=== PATIENT | male | born 1955 | race African-American/Black ===

== ENCOUNTER → 2016-09-11 | Outpatient (CLI) | payer MEDICARE, OTHER ==
[~2016-09-11] VITALS: Ht 190.5 cm; Wt 77.4 kg
[~2016-09-11] MED LIST: ACLI400A2 IH; ALPR0.5T8 PO; AMLO-512 PO; ARIP15TA3 PO; ASPI81 PO; ATOR20TA86 PO; BUPR-93 PO; CARI350 PO; CARV25 PO; CLOP75 PO; DIPH25 PO; DOCU250C91 PO; ELBA1TAB PO; ERYTOO OS; FLUT1AER PO; FOLI0.8T2 PO; FOLI0.8T22 PO; GABA-531 PO; HYDR-305 PO; LACT30L PO; LANS30 PO; LEVO250 PO; LINA72CA PO; LOPE2 PO; MEGE40 PO; METO-325 PO; OMEP20 PO; PHOSLOC PO; SILD25 PO; TIOT185 IH; TRAZ-144 PO; VALS40TA4 PO; VITAD1000 PO; ZOLP10 PO
[2016-09-11 09:25] VITALS: BP 141/77
== END | disposition home or self-care (01) ==
LOC: HBOWC 08:46
PROVIDERS: ATTEND Emergency Medicine
DX: E11.621 Type 2 diabetes mellitus with foot ulcer (principal); L97.521 Non-pressure chronic ulcer of other part of left foot limited to breakdown of skin; E11.22 Type 2 diabetes mellitus with diabetic chronic kidney disease; I12.0 Hypertensive chronic kidney disease with stage 5 chronic kidney disease or end stage renal disease; N18.6 End stage renal disease; K21.9 Gastro-esophageal reflux disease without esophagitis; N40.0 Benign prostatic hyperplasia without lower urinary tract symptoms; E11.69 Type 2 diabetes mellitus with other specified complication; M86.8X7 Other osteomyelitis, ankle and foot; E83.59 Other disorders of calcium metabolism; Z87.39 Personal history of other diseases of the musculoskeletal system and connective tissue
CPT/HCPCS: 73630; 97597; G0463

== ENCOUNTER → 2016-09-18 | Outpatient (CLI) | payer MEDICARE, OTHER ==
[~2016-09-18] MED LIST changes: -ACLI400A2 IH; -ALPR0.5T8 PO; -ARIP15TA3 PO; -BUPR-93 PO; -CARI350 PO; -ERYTOO OS; -FLUT1AER PO; -FOLI0.8T2 PO; -LANS30 PO; -LEVO250 PO; -LOPE2 PO; -MEGE40 PO; -METO-325 PO; -SILD25 PO; -VALS40TA4 PO; -VITAD1000 PO; -ZOLP10 PO
[2016-09-18 09:33] VITALS: BP 127/72
== END | disposition home or self-care (01) ==
LOC: HBOWC 08:59
PROVIDERS: ATTEND Emergency Medicine
DX: E11.621 Type 2 diabetes mellitus with foot ulcer (principal); L97.521 Non-pressure chronic ulcer of other part of left foot limited to breakdown of skin; E11.22 Type 2 diabetes mellitus with diabetic chronic kidney disease; E11.69 Type 2 diabetes mellitus with other specified complication; I12.0 Hypertensive chronic kidney disease with stage 5 chronic kidney disease or end stage renal disease; N18.6 End stage renal disease; K21.9 Gastro-esophageal reflux disease without esophagitis; M86.8X7 Other osteomyelitis, ankle and foot
CPT/HCPCS: 97597

== ENCOUNTER 2016-10-07 13:27 | Inpatient (IN) | payer MEDICARE, OTHER ==
[~2016-10-07] VITALS: Ht 190.5 cm; Wt 77.0 kg
[2016-10-07 13:42] LABS: GLUCOSE,POINT OF CARE 77 MG/DL (70-110)
[2016-10-07] MEDS ORDERED: SODIUM CHLORIDE 0.9% 500 ML IV ONE (15:15)
[2016-10-07 15:17] LABS: GLUCOSE,POINT OF CARE 79 MG/DL (70-110)
[2016-10-07 15:22] LABS: BASOPHILS % (AUTO) 0.7 % (0.0-2.0); EOSINOPHILS % (AUTO) 1.9 % (1.0-6.0); HEMATOCRIT 32.9 % (41-53); LYMPHOCYTES # (AUTO) 0.9 K/uL (1.0-4.8); LYMPHOCYTES % (AUTO) 23.7 % (22.0-44.0); MEAN CORPUSCULAR HEMOGLOBIN 28.4 pg (26.0-34.0); MEAN CORPUSCULAR HGB CONC 33.2 G/dL (31.0-37.0); MEAN CORPUSCULAR VOLUME 85 fL (80-100); MONOCYTES # (AUTO) 0.3 K/uL (0.1-1.0); NEUTROPHILS # (AUTO) 2.4 K/uL (1.8-7.7); NEUTROPHILS % (AUTO) 65.7 % (40.0-70.0); PLATELET COUNT (AUTO) 225 K/uL (150-450); RED BLOOD CELL COUNT(AUTO) 3.86 MIL/uL (4.50-5.90); RED CELL DISTRIBUTION WIDTH 16.2 % (11.5-14.5); WHITE BLOOD COUNT (AUTO) 3.6 K/uL (4.5-11.0)
[2016-10-07] MEDS ORDERED: LINA290C PO (15:22)
[2016-10-07 15:30] LABS: CALCIUM, TOTAL 9.4 mg/dL (8.8-10.5); CREATININE 8.98 mg/dL (0.60-1.30); POTASSIUM 4.3 mmol/L (3.5-5.1)
[2016-10-07] MEDS ORDERED: ONDANSETRON HCL 4 MG/2 ML VIAL IVP ONE (15:30)
[2016-10-07] MEDS ORDERED: MORPHINE SULFATE 4 MG/ML SYRINGE IVP ONE ×2 (15:30→17:30)
[2016-10-07 15:37] LABS: ALBUMIN 3.2 g/dL (3.4-5.0); BILIRUBIN,TOTAL 0.4 mg/dL (0.1-1.0); TOTAL PROTEIN, SERUM 8.7 g/dL (6.4-8.2)
[2016-10-07 16:28] LABS: GLUCOSE,POINT OF CARE 63 MG/DL (70-110)
[2016-10-07] MEDS ORDERED: DEXTROSE 50%-WATER 25 GM/50 ML SYRINGE IVP ONE (16:30)
[2016-10-07 17:02] LABS: GLUCOSE,POINT OF CARE 208 MG/DL (70-110)
[2016-10-07] MEDS ORDERED: BISACODYL 10 MG RECTAL RECTAL SUPPOSITORY PR PRN (18:30)
[2016-10-07] MEDS ORDERED: CefTRIAXone 1 GM/DEXTROSE 50 ML IV ONE (18:30)
[2016-10-07] MEDS ORDERED: ZOLPIDEM TARTRATE 5 MG TABLET PO PRN (18:30)
[2016-10-07] MEDS ORDERED: 0.9% SODIUM CHLORIDE 10 ML SYRINGE IVP PRN (18:30)
[2016-10-07] MEDS ORDERED: ALBUTEROL SULFATE 2.5 MG/0.5 ML NEB SOLUTION NEB PRN (18:30)
[2016-10-07] MEDS ORDERED: ONDANSETRON HCL 4 MG/2 ML VIAL IVP PRN ×2 (18:30)
[2016-10-07] MEDS ORDERED: MORPHINE SULFATE 2 MG/ML SYRINGE IVP PRN (18:30)
[2016-10-07] MEDS ORDERED: IPRATROPIUM BROMIDE 0.5 MG/2.5 ML NEB SOLUTION NEB PRN (18:30)
[2016-10-07 20:05] VITALS: BP 165/86
[2016-10-07] MEDS ORDERED: GABAPENTIN 300 MG CAPSULE PO SCH (21:00)
[2016-10-07] MEDS: HEPARIN SODIUM,PORCINE 5,000 UNITS/ML VIAL SQ SCH (21:12)
[2016-10-07] MEDS: DOCUSATE SODIUM 250 MG CAPSULE PO SCH (21:12)
[2016-10-07] MEDS: DiphenhydrAMINE HCL 25 MG CAPSULE PO SCH (21:13)
[2016-10-07] MEDS: MORPHINE SULFATE 2 MG/ML SYRINGE IVP PRN (21:13)
[2016-10-07 22:17] LABS: GLUCOSE,POINT OF CARE 54 MG/DL (70-110)
[2016-10-07 23:51] VITALS: BP 165/87
[2016-10-08] MEDS: MORPHINE SULFATE 2 MG/ML SYRINGE IVP PRN ×4 (01:25→13:31)
[2016-10-08 01:42] LABS: GLUCOSE,POINT OF CARE 78 MG/DL (70-110)
[2016-10-08 04:10] VITALS: BP 154/83
[2016-10-08 05:51] LABS: BASOPHILS % (AUTO) 0.4 % (0.0-2.0); EOSINOPHILS % (AUTO) 1.7 % (1.0-6.0); HEMATOCRIT 31.2 % (41-53); HEMOGLOBIN 10.3 g/dL (13.5-17.5); LYMPHOCYTES # (AUTO) 1.1 K/uL (1.0-4.8); MEAN CORPUSCULAR HEMOGLOBIN 28.4 pg (26.0-34.0); MEAN CORPUSCULAR VOLUME 86 fL (80-100); MONOCYTES # (AUTO) 0.4 K/uL (0.1-1.0); MONOCYTES % (AUTO) 7.7 % (2.0-9.0); NEUTROPHILS # (AUTO) 3.7 K/uL (1.8-7.7); NEUTROPHILS % (AUTO) 69.2 % (40.0-70.0); PLATELET COUNT (AUTO) 202 K/uL (150-450); RED BLOOD CELL COUNT(AUTO) 3.61 MIL/uL (4.50-5.90); RED CELL DISTRIBUTION WIDTH 15.9 % (11.5-14.5); WHITE BLOOD COUNT (AUTO) 5.3 K/uL (4.5-11.0)
[2016-10-08 06:21] LABS: HEMOGLOBIN A1C 4.3 % (4.5-6.2)
[2016-10-08 06:22] LABS: GLUCOSE,POINT OF CARE 81 MG/DL (70-110)
[2016-10-08 06:31] LABS: CALCIUM, TOTAL 8.7 mg/dL (8.8-10.5); CHOL/HDL RATIO 5.2 (4.2-7.3); CREATININE 10.18 mg/dL (0.60-1.30); MAGNESIUM 1.7 mg/dL (1.80-2.40); POTASSIUM 4.4 mmol/L (3.5-5.1); THYROID STIMULATING HORMONE 0.88 uIU/mL (0.36-3.74)
[2016-10-08 07:18] VITALS: BP 143/83
[2016-10-08] MEDS ORDERED: TraZODone HCL 50 MG TABLET PO SCH (09:00)
[2016-10-08 09:16] LABS: ALBUMIN 2.7 g/dL (3.4-5.0); BILIRUBIN,TOTAL 0.4 mg/dL (0.1-1.0); TOTAL PROTEIN, SERUM 7.5 g/dL (6.4-8.2)
[2016-10-08] MEDS: CLOPIDOGREL BISULFATE 75 MG TABLET PO SCH (09:34)
[2016-10-08] MEDS: OMEPRAZOLE 20 MG CAPSULE PO SCH (09:34)
[2016-10-08] MEDS: HEPARIN SODIUM,PORCINE 5,000 UNITS/ML VIAL SQ SCH ×2 (09:35→21:17)
[2016-10-08] MEDS: ASPIRIN 81 MG CHEWABLE TABLET PO SCH (09:35)
[2016-10-08] MEDS: DiphenhydrAMINE HCL 25 MG CAPSULE PO SCH ×3 (09:35→21:18)
[2016-10-08] MEDS: AmLODIPine BESYLATE 10 MG TABLET PO SCH (09:35)
[2016-10-08] MEDS: CALCIUM ACETATE 667 MG CAPSULE PO SCH ×3 (09:35→18:01)
[2016-10-08] MEDS: DOCUSATE SODIUM 250 MG CAPSULE PO SCH ×2 (09:35→21:17)
[2016-10-08] MEDS: OXYGEN THERAPY IH SCH ×2 (09:37→20:00)
[2016-10-08] MEDS: VITAMIN B COMP/VIT C/FOLIC ACID CAPSULE PO SCH (09:41)
[2016-10-08] MEDS: TIOTROPIUM BROMIDE 18 MCG/INH HANDIHALER [5] IH SCH (09:46)
[2016-10-08 11:41] VITALS: BP 173/85
[2016-10-08 12:43] LABS: GLUCOSE,POINT OF CARE 106 MG/DL (70-110)
[2016-10-08] MEDS ORDERED: MORPHINE SULFATE 2 MG/ML SYRINGE IVP ONE (14:00)
[2016-10-08 15:27] VITALS: BP 154/114
[2016-10-08] MEDS: NICOTINE 21 MG/24 HOUR PATCH TD SCH (16:02)
[2016-10-08] MEDS: MORPHINE SULFATE 4 MG/ML SYRINGE IVP PRN ×2 (18:02→22:10)
[2016-10-08 18:31] LABS: GLUCOSE,POINT OF CARE 71 MG/DL (70-110)
[2016-10-08 19:25] VITALS: BP 151/85
[2016-10-08] MEDS: MAGNESIUM HYDROXIDE SUSPENSION 30 ML UDCUP PO PRN (21:18)
[2016-10-08] MEDS: CARVEDILOL 12.5 MG TABLET PO SCH (21:18)
[2016-10-08] MEDS: ZOLPIDEM TARTRATE 5 MG TABLET PO PRN (21:18)
[2016-10-08 22:32] LABS: GLUCOSE,POINT OF CARE 79 MG/DL (70-110)
[2016-10-09] MEDS: MORPHINE SULFATE 4 MG/ML SYRINGE IVP PRN ×4 (02:01→20:29)
[2016-10-09 03:01] VITALS: BP 152/94
[2016-10-09 06:08] LABS: GLUCOSE,POINT OF CARE 82 MG/DL (70-110)
[2016-10-09 07:11] VITALS: BP 167/94
[2016-10-09] MEDS: OXYGEN THERAPY IH SCH (08:00)
[2016-10-09] MEDS ORDERED: SODIUM CHLORIDE 0.9% 1,000 ML IV ONE ×2 (08:00→08:01)
[2016-10-09] MEDS: CALCIUM ACETATE 667 MG CAPSULE PO SCH ×3 (08:00→18:33)
[2016-10-09] MEDS ORDERED: FentaNYL CITRATE-PF 100 MCG/2 ML VIAL ONE ×2 (08:24→08:52)
[2016-10-09] MEDS ORDERED: MIDAZOLAM HCL 5 MG/ML VIAL ONE ×2 (08:24→08:52)
[2016-10-09] MEDS ORDERED: FLUMAZENIL 0.1 MG/ML 5 ML VIAL IVP ONE (08:25)
[2016-10-09] MEDS ORDERED: SODIUM TETRADECYL SULFATE 3% 60 MG/2 ML VIAL IVP ONE (08:25)
[2016-10-09] MEDS ORDERED: ATROPINE SULFATE 0.1 MG/ML 10 ML SYRINGE IVP ONE (08:25)
[2016-10-09] MEDS ORDERED: NALOXONE HCL 0.4 MG/ML VIAL ONE (08:25)
[2016-10-09] MEDS ORDERED: EPINEPHrine 1:10,000 [1 MG/10 ML] SYRINGE ONE (08:25)
[2016-10-09] MEDS ORDERED: DiphenhydrAMINE HCL 50 MG/ML VIAL ONE (08:25)
[2016-10-09] MEDS ORDERED: DEXTROSE 50%-WATER 25 GM/50 ML SYRINGE IVP ONE (08:35)
[2016-10-09 08:37] LABS: GLUCOSE COMMENT 1 Doctor Notified; GLUCOSE,POINT OF CARE 63 MG/DL (70-110)
[2016-10-09] MEDS ORDERED: NALOXONE HCL 1 MG/ML 2 ML SYG IVP PRN (09:00)
[2016-10-09] MEDS ORDERED: FOLIC ACID 1 MG TABLET PO SCH (09:00)
[2016-10-09] MEDS: AmLODIPine BESYLATE 10 MG TABLET PO SCH (10:25)
[2016-10-09] MEDS: CLOPIDOGREL BISULFATE 75 MG TABLET PO SCH (10:25)
[2016-10-09] MEDS: OMEPRAZOLE 20 MG CAPSULE PO SCH (10:25)
[2016-10-09] MEDS: LINACLOTIDE 145 MCG CAPSULE PO SCH (10:25)
[2016-10-09] MEDS: CARVEDILOL 12.5 MG TABLET PO SCH ×2 (10:26→20:29)
[2016-10-09] MEDS: ASPIRIN 81 MG CHEWABLE TABLET PO SCH (10:26)
[2016-10-09] MEDS: DiphenhydrAMINE HCL 25 MG CAPSULE PO SCH ×2 (10:26→20:29)
[2016-10-09] MEDS: VITAMIN B COMP/VIT C/FOLIC ACID CAPSULE PO SCH (10:26)
[2016-10-09] MEDS: TIOTROPIUM BROMIDE 18 MCG/INH HANDIHALER [5] IH SCH (10:27)
[2016-10-09] MEDS: NICOTINE 21 MG/24 HOUR PATCH TD SCH (10:29)
[2016-10-09] MEDS: HEPARIN SODIUM,PORCINE 5,000 UNITS/ML VIAL SQ SCH ×2 (10:30→20:29)
[2016-10-09 10:33] LABS: BASOPHILS % (AUTO) 0.4 % (0.0-2.0); EOSINOPHILS % (AUTO) 2.3 % (1.0-6.0); HEMATOCRIT 33.7 % (41-53); HEMOGLOBIN 11.1 g/dL (13.5-17.5); LYMPHOCYTES % (AUTO) 16.8 % (22.0-44.0); MEAN CORPUSCULAR HEMOGLOBIN 28.6 pg (26.0-34.0); MEAN CORPUSCULAR VOLUME 86 fL (80-100); MONOCYTES # (AUTO) 0.3 K/uL (0.1-1.0); MONOCYTES % (AUTO) 5.6 % (2.0-9.0); NEUTROPHILS # (AUTO) 4.3 K/uL (1.8-7.7); NEUTROPHILS % (AUTO) 74.9 % (40.0-70.0); PLATELET COUNT (AUTO) 203 K/uL (150-450); RED BLOOD CELL COUNT(AUTO) 3.89 MIL/uL (4.50-5.90); RED CELL DISTRIBUTION WIDTH 16.4 % (11.5-14.5); WHITE BLOOD COUNT (AUTO) 5.8 K/uL (4.5-11.0)
[2016-10-09] MEDS: DOCUSATE SODIUM 250 MG CAPSULE PO SCH ×2 (10:41→21:00)
[2016-10-09 10:47] LABS: CALCIUM, TOTAL 8.7 mg/dL (8.8-10.5); CREATININE 12.52 mg/dL (0.60-1.30); POTASSIUM 4.4 mmol/L (3.5-5.1)
[2016-10-09] MEDS ORDERED: DiphenhydrAMINE HCL 50 MG/ML VIAL IVP ONE (11:00)
[2016-10-09] MEDS ORDERED: LIDOCAINE HCL/PF 1% 2 ML VIAL IM ONE (11:00)
[2016-10-09 11:32] VITALS: BP 164/90
[2016-10-09 12:42] LABS: GLUCOSE,POINT OF CARE 81 MG/DL (70-110)
[2016-10-09] MEDS: SIMETHICONE 80 MG CHEWABLE TABLET CHEW PRN (14:07)
[2016-10-09] MEDS ORDERED: MANNITOL 25%-12.5 GM/50 ML VIAL IVP PRN (16:45)
[2016-10-09] MEDS ORDERED: DiphenhydrAMINE HCL 50 MG/ML VIAL IVP PRN (16:45)
[2016-10-09] MEDS ORDERED: LIDOCAINE HCL/PF 1% 2 ML VIAL ID PRN (16:45)
[2016-10-09] MEDS ORDERED: ALBUMIN HUMAN 25%-12.5GM/50ML IV BOTTLE IV PRN (16:45)
[2016-10-09 18:52] LABS: GLUCOSE COMMENT 1 Juice/Food/D50 Given; GLUCOSE,POINT OF CARE 51 MG/DL (70-110)
[2016-10-09 19:35] VITALS: BP 155/80
[2016-10-09] MEDS: BUDESONIDE/FORMOTEROL FUMARATE 80-4.5 MCG/PUFF 6.9 GM INHALER IH SCH (20:31)
[2016-10-09 23:06] VITALS: BP 154/88
[2016-10-09] MEDS: ZOLPIDEM TARTRATE 5 MG TABLET PO PRN (23:10)
[2016-10-10] MEDS: MORPHINE SULFATE 4 MG/ML SYRINGE IVP PRN ×6 (01:11→20:50)
[2016-10-10] MEDS: SIMETHICONE 80 MG CHEWABLE TABLET CHEW PRN ×2 (01:17→09:04)
[2016-10-10 03:32] LABS: GLUCOSE,POINT OF CARE 88 MG/DL (70-110)
[2016-10-10 05:38] VITALS: BP 155/83
[2016-10-10 05:56] LABS: BASOPHILS % (AUTO) 0.7 % (0.0-2.0); EOSINOPHILS % (AUTO) 3.1 % (1.0-6.0); HEMATOCRIT 30.9 % (41-53); MEAN CORPUSCULAR HGB CONC 32.5 G/dL (31.0-37.0); MEAN CORPUSCULAR VOLUME 86 fL (80-100); MONOCYTES # (AUTO) 0.4 K/uL (0.1-1.0); MONOCYTES % (AUTO) 10.2 % (2.0-9.0); NEUTROPHILS # (AUTO) 2.5 K/uL (1.8-7.7); PLATELET COUNT (AUTO) 163 K/uL (150-450); RED BLOOD CELL COUNT(AUTO) 3.59 MIL/uL (4.50-5.90); RED CELL DISTRIBUTION WIDTH 16.4 % (11.5-14.5); WHITE BLOOD COUNT (AUTO) 4.1 K/uL (4.5-11.0)
[2016-10-10 06:25] LABS: CALCIUM, TOTAL 8.8 mg/dL (8.8-10.5); CREATININE 8.85 mg/dL (0.60-1.30); POTASSIUM 4.5 mmol/L (3.5-5.1)
[2016-10-10 06:33] LABS: GLUCOSE,POINT OF CARE 96 MG/DL (70-110)
[2016-10-10 07:28] VITALS: BP 167/84
[2016-10-10] MEDS: OMEPRAZOLE 20 MG CAPSULE PO SCH (07:58)
[2016-10-10] MEDS: CALCIUM ACETATE 667 MG CAPSULE PO SCH ×3 (07:59→17:24)
[2016-10-10] MEDS: AmLODIPine BESYLATE 10 MG TABLET PO SCH (08:00)
[2016-10-10] MEDS: DOCUSATE SODIUM 250 MG CAPSULE PO SCH ×2 (08:00→20:50)
[2016-10-10] MEDS: OXYGEN THERAPY IH SCH ×4 (08:00→22:17)
[2016-10-10] MEDS: VITAMIN B COMP/VIT C/FOLIC ACID CAPSULE PO SCH (08:00)
[2016-10-10] MEDS: CLOPIDOGREL BISULFATE 75 MG TABLET PO SCH (08:01)
[2016-10-10] MEDS: HEPARIN SODIUM,PORCINE 5,000 UNITS/ML VIAL SQ SCH ×2 (08:02→21:00)
[2016-10-10] MEDS: CARVEDILOL 12.5 MG TABLET PO SCH (08:03)
[2016-10-10] MEDS: ASPIRIN 81 MG CHEWABLE TABLET PO SCH (08:03)
[2016-10-10] MEDS: TIOTROPIUM BROMIDE 18 MCG/INH HANDIHALER [5] IH SCH (08:04)
[2016-10-10] MEDS: LINACLOTIDE 145 MCG CAPSULE PO SCH (08:04)
[2016-10-10] MEDS: DiphenhydrAMINE HCL 25 MG CAPSULE PO SCH ×3 (08:05→20:50)
[2016-10-10] MEDS: BUDESONIDE/FORMOTEROL FUMARATE 80-4.5 MCG/PUFF 6.9 GM INHALER IH SCH ×2 (08:06→20:49)
[2016-10-10] MEDS: NICOTINE 21 MG/24 HOUR PATCH TD SCH (08:08)
[2016-10-10 11:28] LABS: GLUCOSE,POINT OF CARE 77 MG/DL (70-110)
[2016-10-10 11:35] VITALS: BP 152/83
[2016-10-10 15:20] VITALS: BP 125/62
[2016-10-10 17:38] LABS: GLUCOSE COMMENT 1 Juice/Food/D50 Given; GLUCOSE,POINT OF CARE 64 MG/DL (70-110)
[2016-10-10 17:42] LABS: GLUCOSE COMMENT 1 Repeated; GLUCOSE COMMENT 2 Juice/Food/D50 Given; GLUCOSE,POINT OF CARE 56 MG/DL (70-110)
[2016-10-10 18:32] LABS: GLUCOSE,POINT OF CARE 72 MG/DL (70-110)
[2016-10-10 19:23] VITALS: BP 162/89
[2016-10-10] MEDS: MAGNESIUM HYDROXIDE SUSPENSION 30 ML UDCUP PO PRN (20:49)
[2016-10-10] MEDS: CARVEDILOL 25 MG TABLET PO SCH (20:50)
[2016-10-10] MEDS: ZOLPIDEM TARTRATE 5 MG TABLET PO PRN (22:15)
[2016-10-10 23:48] VITALS: BP 161/94
[2016-10-11] MEDS: CARISOPRODOL 350 MG TABLET PO PRN ×3 (00:02→16:53)
[2016-10-11] MEDS: MORPHINE SULFATE 4 MG/ML SYRINGE IVP PRN ×4 (00:51→13:39)
[2016-10-11 03:10] LABS: GLUCOSE,POINT OF CARE 82 MG/DL (70-110)
[2016-10-11] MEDS: SIMETHICONE 80 MG CHEWABLE TABLET CHEW PRN (04:52)
[2016-10-11 05:00] VITALS: BP 153/86
[2016-10-11] MEDS: LINACLOTIDE 145 MCG CAPSULE PO SCH (06:22)
[2016-10-11 08:10] VITALS: BP 168/87
[2016-10-11] MEDS: DiphenhydrAMINE HCL 25 MG CAPSULE PO SCH (08:10)
[2016-10-11] MEDS: ASPIRIN 81 MG CHEWABLE TABLET PO SCH (08:11)
[2016-10-11] MEDS: CLOPIDOGREL BISULFATE 75 MG TABLET PO SCH (08:11)
[2016-10-11] MEDS: VITAMIN B COMP/VIT C/FOLIC ACID CAPSULE PO SCH (08:11)
[2016-10-11] MEDS: CARVEDILOL 25 MG TABLET PO SCH (08:11)
[2016-10-11] MEDS: AmLODIPine BESYLATE 10 MG TABLET PO SCH (08:11)
[2016-10-11] MEDS: CALCIUM ACETATE 667 MG CAPSULE PO SCH ×2 (08:11→12:00)
[2016-10-11] MEDS: DOCUSATE SODIUM 250 MG CAPSULE PO SCH (08:11)
[2016-10-11] MEDS: OMEPRAZOLE 20 MG CAPSULE PO SCH (08:11)
[2016-10-11] MEDS: HEPARIN SODIUM,PORCINE 5,000 UNITS/ML VIAL SQ SCH (08:11)
[2016-10-11] MEDS: BUDESONIDE/FORMOTEROL FUMARATE 80-4.5 MCG/PUFF 6.9 GM INHALER IH SCH (08:12)
[2016-10-11] MEDS: TIOTROPIUM BROMIDE 18 MCG/INH HANDIHALER [5] IH SCH (08:12)
[2016-10-11] MEDS: NICOTINE 21 MG/24 HOUR PATCH TD SCH (08:12)
[2016-10-11] MEDS: ALPRAZolam 0.5 MG TABLET PO PRN ×2 (09:00→16:53)
[2016-10-11 09:33] LABS: GLUCOSE,POINT OF CARE 71 MG/DL (70-110)
[2016-10-11 15:24] VITALS: BP 147/98
[2016-10-11] MEDS ORDERED: SYMB8060 IH (16:44)
[2016-10-11] MEDS ORDERED: CARV12 PO (16:45)
[2016-10-11] MEDS ORDERED: LIDOCAINE HCL/PF 1% 2 ML VIAL IARTIC ONE (17:29)
[2016-10-11] MEDS ORDERED: DiphenhydrAMINE HCL 50 MG/ML VIAL IM ONE (17:29)
== END 2016-10-11 17:30 | disposition home or self-care (01) | DRG 438 ==
LOC: EMS 13:29 → 6N 18:50
PROVIDERS: ADMIT Internal Medicine Geriatric Medicine; ATTEND Internal Medicine Geriatric Medicine
PROC: 5A1D60Z (ICD-10-PCS; 2016-10-09)
PROC: 0DB68ZX Excision of Stomach, Via Natural or Artificial Opening Endoscopic, Diagnostic (ICD-10-PCS; principal; 2016-10-09 09:00)
DX: K85.90 Acute pancreatitis without necrosis or infection, unspecified (principal); N18.6 End stage renal disease; I13.2 Hypertensive heart and chronic kidney disease with heart failure and with stage 5 chronic kidney disease, or end stage renal disease; J96.11 Chronic respiratory failure with hypoxia; E11.22 Type 2 diabetes mellitus with diabetic chronic kidney disease; E11.43 Type 2 diabetes mellitus with diabetic autonomic (poly)neuropathy; K74.60 Unspecified cirrhosis of liver; N18.9 Chronic kidney disease, unspecified; E78.5 Hyperlipidemia, unspecified; F17.200 Nicotine dependence, unspecified, uncomplicated; G89.4 Chronic pain syndrome; I50.9 Heart failure, unspecified; J44.9 Chronic obstructive pulmonary disease, unspecified; K29.70 Gastritis, unspecified, without bleeding; K31.84 Gastroparesis; K58.9 Irritable bowel syndrome, unspecified; Z91.19 Patient's noncompliance with other medical treatment and regimen; Z99.2 Dependence on renal dialysis; Z99.3 Dependence on wheelchair; Z99.81 Dependence on supplemental oxygen; D64.9 Anemia, unspecified; E21.3 Hyperparathyroidism, unspecified; B19.20 Unspecified viral hepatitis C without hepatic coma; Z88.8 Allergy status to other drugs, medicaments and biological substances; Z91.011 Allergy to milk products; Z91.013 Allergy to seafood; Z90.49 Acquired absence of other specified parts of digestive tract; Z91.012 Allergy to eggs; Z79.82 Long term (current) use of aspirin; Z79.899 Other long term (current) drug therapy; E11.51 Type 2 diabetes mellitus with diabetic peripheral angiopathy without gangrene
CPT/HCPCS: 74176; 76700; 82105; 82306; 82607; 82746; 82962; 83036; 83735; 84443; 87340; 88305; 88312; 93005; 96361; 96365; 96375; 96376; 99285; J0171; J0461; J0696; J1200; J1644; J2250; J2270; J2310; J2405; J3010; J3490; J7030

== ENCOUNTER → 2016-11-04 | Outpatient (CLI) | payer MEDICARE, OTHER ==
[~2016-11-04] MED LIST changes: +ACET650S14 PR; +ALPR0.5T8 PO; -ATOR20TA86 PO; +AUD NEB; +BISA5TAB12 PO; +CARV12 PO; -CARV25 PO; -ELBA1TAB PO; -GABA-531 PO; -HYDR-305 PO; +HYDR-309 PO; +IPRNEB IH; -LACT30L PO; +LIDOCAINE HCL 2% 5 ML JELLY TP ONE; +LINA290C PO; -LINA72CA PO; +MOM30 PO; +NICO-650 MISC; +SYMB8060 IH; +ZOLP5 PO; +ZOSY225FZ IV
[2016-11-04 10:27] VITALS: BP 124/59
== END | disposition home or self-care (01) ==
LOC: HBOWC 09:12
PROVIDERS: ATTEND Emergency Medicine
DX: E11.621 Type 2 diabetes mellitus with foot ulcer (principal); L97.522 Non-pressure chronic ulcer of other part of left foot with fat layer exposed; E11.51 Type 2 diabetes mellitus with diabetic peripheral angiopathy without gangrene; J44.9 Chronic obstructive pulmonary disease, unspecified; E11.22 Type 2 diabetes mellitus with diabetic chronic kidney disease; I13.2 Hypertensive heart and chronic kidney disease with heart failure and with stage 5 chronic kidney disease, or end stage renal disease; I50.9 Heart failure, unspecified; N18.6 End stage renal disease; Z99.2 Dependence on renal dialysis; E78.5 Hyperlipidemia, unspecified; E21.3 Hyperparathyroidism, unspecified; E11.42 Type 2 diabetes mellitus with diabetic polyneuropathy; E11.69 Type 2 diabetes mellitus with other specified complication; M86.8X8 Other osteomyelitis, other site
CPT/HCPCS: 11042; 84134; 85651; 86140; 87070; 87205

== ENCOUNTER → 2016-11-11 | Outpatient (CLI) | payer MEDICARE, OTHER ==
[~2016-11-11] MED LIST changes: -ACET650S14 PR; -ALPR0.5T8 PO; -AUD NEB; -BISA5TAB12 PO; -HYDR-309 PO; -IPRNEB IH; -LIDOCAINE HCL 2% 5 ML JELLY TP ONE; -MOM30 PO; -NICO-650 MISC; -TRAZ-144 PO; -ZOLP5 PO; -ZOSY225FZ IV
[2016-11-11 08:16] VITALS: BP 133/90
== END | disposition home or self-care (01) ==
LOC: HBOWC 07:17
PROVIDERS: ATTEND Emergency Medicine
DX: E11.621 Type 2 diabetes mellitus with foot ulcer (principal); L97.521 Non-pressure chronic ulcer of other part of left foot limited to breakdown of skin; E11.51 Type 2 diabetes mellitus with diabetic peripheral angiopathy without gangrene; E11.43 Type 2 diabetes mellitus with diabetic autonomic (poly)neuropathy; E11.22 Type 2 diabetes mellitus with diabetic chronic kidney disease; I13.2 Hypertensive heart and chronic kidney disease with heart failure and with stage 5 chronic kidney disease, or end stage renal disease; I50.9 Heart failure, unspecified; N18.6 End stage renal disease; J44.9 Chronic obstructive pulmonary disease, unspecified; E78.5 Hyperlipidemia, unspecified; E21.3 Hyperparathyroidism, unspecified; B19.20 Unspecified viral hepatitis C without hepatic coma; E11.69 Type 2 diabetes mellitus with other specified complication; M86.8X8 Other osteomyelitis, other site; K21.9 Gastro-esophageal reflux disease without esophagitis; Z99.2 Dependence on renal dialysis
CPT/HCPCS: 11042

== ENCOUNTER → 2016-11-11 | Outpatient (CLI) | payer MEDICARE, OTHER | END | disposition home or self-care (01) | LOC: RADMN 09:44 | PROVIDERS: ATTEND Nurse Practitioner Adult Health | DX: E11.621 Type 2 diabetes mellitus with foot ulcer (principal); L97.529 Non-pressure chronic ulcer of other part of left foot with unspecified severity; R60.0 Localized edema | CPT/HCPCS: 73721 ==

== ENCOUNTER → 2016-11-18 | Outpatient (CLI) | payer MEDICARE, OTHER ==
[~2016-11-18] MED LIST changes: +ACET650S14 PR; +ALPR0.5T8 PO; +AUD NEB; +BISA5TAB12 PO; +HYDR-309 PO; +IPRNEB IH; +LIDOCAINE HCL 2% 5 ML JELLY TP ONE; +MOM30 PO; +NICO-650 MISC; +TRAZ-144 PO; +ZOLP5 PO; +ZOSY225FZ IV
[2016-11-18 08:44] VITALS: BP 133/74
== END | disposition home or self-care (01) ==
LOC: HBOWC 07:45
PROVIDERS: ATTEND Emergency Medicine
DX: E11.621 Type 2 diabetes mellitus with foot ulcer (principal); L97.521 Non-pressure chronic ulcer of other part of left foot limited to breakdown of skin; E11.51 Type 2 diabetes mellitus with diabetic peripheral angiopathy without gangrene; J44.9 Chronic obstructive pulmonary disease, unspecified; K21.9 Gastro-esophageal reflux disease without esophagitis; E11.22 Type 2 diabetes mellitus with diabetic chronic kidney disease; I13.2 Hypertensive heart and chronic kidney disease with heart failure and with stage 5 chronic kidney disease, or end stage renal disease; N18.6 End stage renal disease; I50.9 Heart failure, unspecified; E78.5 Hyperlipidemia, unspecified; E21.3 Hyperparathyroidism, unspecified; E11.43 Type 2 diabetes mellitus with diabetic autonomic (poly)neuropathy; K74.60 Unspecified cirrhosis of liver; Z90.49 Acquired absence of other specified parts of digestive tract; Z86.19 Personal history of other infectious and parasitic diseases; Z79.82 Long term (current) use of aspirin; Z99.2 Dependence on renal dialysis
CPT/HCPCS: 11042

== ENCOUNTER → 2016-11-27 | Outpatient (CLI) | payer MEDICARE, OTHER ==
[~2016-11-27] MED LIST changes: -LIDOCAINE HCL 2% 5 ML JELLY TP ONE
[2016-11-27 15:04] VITALS: BP 99/61
== END | disposition home or self-care (01) ==
LOC: SRCNTR 14:39
PROVIDERS: ATTEND Internal Medicine Infectious Disease
DX: E11.69 Type 2 diabetes mellitus with other specified complication (principal); B96.89 Other specified bacterial agents as the cause of diseases classified elsewhere; M86.8X7 Other osteomyelitis, ankle and foot; E11.22 Type 2 diabetes mellitus with diabetic chronic kidney disease; I12.0 Hypertensive chronic kidney disease with stage 5 chronic kidney disease or end stage renal disease; N18.6 End stage renal disease; I73.9 Peripheral vascular disease, unspecified; B19.20 Unspecified viral hepatitis C without hepatic coma; J44.9 Chronic obstructive pulmonary disease, unspecified; G89.29 Other chronic pain; Z87.891 Personal history of nicotine dependence
CPT/HCPCS: G0463

== ENCOUNTER 2016-12-22 16:52 | Inpatient (IN) | payer MEDICARE, OTHER ==
[~2016-12-22] VITALS: Ht 182.9 cm; Wt 77.5 kg
[~2016-12-22 16:52] MED LIST changes: -ACET650S14 PR; -ALPR0.5T8 PO; -AUD NEB; -BISA5TAB12 PO; -HYDR-309 PO; -IPRNEB IH; -MOM30 PO; -NICO-650 MISC; -TRAZ-144 PO; -ZOLP5 PO; -ZOSY225FZ IV
[2016-12-24 16:15] VITALS: BP 150/66
[2016-12-24] MEDS ORDERED: ONDANSETRON HCL 4 MG/2 ML VIAL IVP PRN (17:15)
[2016-12-24] MEDS ORDERED: IPRATROPIUM BROMIDE 0.5 MG/2.5 ML NEB SOLUTION NEB PRN (17:15)
[2016-12-24] MEDS ORDERED: BISACODYL 10 MG RECTAL RECTAL SUPPOSITORY PR PRN (17:15)
[2016-12-24] MEDS ORDERED: MAGNESIUM HYDROXIDE SUSPENSION 30 ML UDCUP PO PRN (17:15)
[2016-12-24] MEDS ORDERED: ALBUTEROL SULFATE 2.5 MG/0.5 ML NEB SOLUTION NEB PRN (17:15)
[2016-12-24] MEDS ORDERED: ACETAMINOPHEN 325 MG TABLET PO PRN (17:30)
[2016-12-24] MEDS ORDERED: MORPHINE SULFATE 2 MG/ML SYRINGE IVP PRN ×3 (17:30→20:45)
[2016-12-24] MEDS ORDERED: PNEUMOCOCCAL VACCINE POLYVALENT 0.5 ML VIAL [PPSV23] IM ONE (18:15)
[2016-12-24] MEDS ORDERED: HYDROCODONE/ACETAMINOPHEN 5-325 MG TABLET PO PRN ×2 (18:30)
[2016-12-24] MEDS: CALCIUM ACETATE 667 MG CAPSULE PO SCH (18:34)
[2016-12-24] MEDS ORDERED: HYDROCODONE/ACETAMINOPHEN 10-325 MG TABLET PO PRN ×2 (19:00)
[2016-12-24] MEDS: CARVEDILOL 12.5 MG TABLET PO SCH (19:58)
[2016-12-24] MEDS: BUDESONIDE/FORMOTEROL FUMARATE 80-4.5 MCG/PUFF 6.9 GM INHALER IH SCH (19:58)
[2016-12-24] MEDS: DOCUSATE SODIUM 250 MG CAPSULE PO SCH (19:58)
[2016-12-24] MEDS: HEPARIN SODIUM,PORCINE 5,000 UNITS/ML VIAL SQ SCH (19:59)
[2016-12-24] MEDS: DiphenhydrAMINE HCL 25 MG CAPSULE PO SCH (19:59)
[2016-12-24 20:05] VITALS: BP 145/83
[2016-12-24] MEDS: ZOLPIDEM TARTRATE 10 MG TABLET PO PRN (20:55)
[2016-12-24] MEDS: ALPRAZolam 0.5 MG TABLET PO PRN (20:55)
[2016-12-24 23:47] VITALS: BP 134/77
[2016-12-25] MEDS: MORPHINE SULFATE 2 MG/ML SYRINGE IVP PRN ×6 (00:16→23:37)
[2016-12-25 05:55] VITALS: BP 158/87
[2016-12-25 06:14] LABS: BASOPHILS % (AUTO) 0.7 % (0.0-2.0); EOSINOPHILS % (AUTO) 3.2 % (1.0-6.0); HEMATOCRIT 31.1 % (41-53); HEMOGLOBIN 10.6 g/dL (13.5-17.5); LYMPHOCYTES # (AUTO) 1.1 K/uL (1.0-4.8); MEAN CORPUSCULAR HEMOGLOBIN 30.7 pg (26.0-34.0); MEAN CORPUSCULAR HGB CONC 34.1 G/dL (31.0-37.0); MEAN CORPUSCULAR VOLUME 90 fL (80-100); MONOCYTES # (AUTO) 0.3 K/uL (0.1-1.0); MONOCYTES % (AUTO) 9.9 % (2.0-9.0); NEUTROPHILS # (AUTO) 1.8 K/uL (1.8-7.7); NEUTROPHILS % (AUTO) 54.2 % (40.0-70.0); PLATELET COUNT (AUTO) 116 K/uL (150-450); RED BLOOD CELL COUNT(AUTO) 3.46 MIL/uL (4.50-5.90); RED CELL DISTRIBUTION WIDTH 16.6 % (11.5-14.5); WHITE BLOOD COUNT (AUTO) 3.3 K/uL (4.5-11.0)
[2016-12-25] MEDS: LINACLOTIDE 290 MCG CAPSULE PO SCH ×2 (06:27→09:45)
[2016-12-25 06:28] LABS: GLUCOSE,POINT OF CARE 105 MG/DL (70-110)
[2016-12-25] MEDS ORDERED: LIDOCAINE HCL/PF 1% 30 ML VIAL ONE (06:57)
[2016-12-25] MEDS ORDERED: BUPIVACAINE HCL/PF 0.5% 30 ML VIAL ONE (06:57)
[2016-12-25 07:23] LABS: ALBUMIN 2.8 g/dL (3.4-5.0); BILIRUBIN,TOTAL 0.3 mg/dL (0.1-1.0); CALCIUM, TOTAL 8.9 mg/dL (8.8-10.5); CREATININE 8.4 mg/dL (0.60-1.30); POTASSIUM 3.9 mmol/L (3.5-5.1); TOTAL PROTEIN, SERUM 7.4 g/dL (6.4-8.2)
[2016-12-25] MEDS ORDERED: SODIUM CHLORIDE 0.9% 1,000 ML IV ONE (07:34)
[2016-12-25] MEDS ORDERED: SODIUM CHLORIDE 0.9% 1,000 ML IV SCH (07:45)
[2016-12-25 08:02] LABS: PROCALCITONIN (PCT) 0.76 ng/mL (<0.50)
[2016-12-25] MEDS ORDERED: SODIUM CHLORIDE 0.9% 10 ML ONE (08:07)
[2016-12-25] MEDS ORDERED: BACITRACIN 50,000 UNITS/VIAL ONE (08:07)
[2016-12-25] MEDS ORDERED: THROMBIN, BOVINE 20000 UNITS/VIAL POWDER TP ONE (08:08)
[2016-12-25] MEDS ORDERED: GELATIN SPONGE,ABSORBABLE 100 MM TP ONE (08:08)
[2016-12-25 08:11] LABS: ERYTHROCYTE SEDIMENTATION RATE 57 MM/HR (0-15)
[2016-12-25] MEDS ORDERED: FentaNYL CITRATE-PF 100 MCG/2 ML VIAL IVP PRN (08:30)
[2016-12-25] MEDS ORDERED: MEPERIDINE-PF 25 MG/ML SYRINGE IVP PRN (08:30)
[2016-12-25] MEDS ORDERED: HYDROmorphone 2 MG/ML SYRINGE IVP PRN (08:30)
[2016-12-25 09:35] VITALS: BP 164/72
[2016-12-25] MEDS: CALCIUM ACETATE 667 MG CAPSULE PO SCH ×3 (09:45→16:59)
[2016-12-25] MEDS: VITAMIN B COMP/VIT C/FOLIC ACID CAPSULE PO SCH (09:45)
[2016-12-25] MEDS: TIOTROPIUM BROMIDE 18 MCG/INH HANDIHALER [5] IH SCH (09:45)
[2016-12-25] MEDS: DiphenhydrAMINE HCL 25 MG CAPSULE PO SCH ×2 (09:45→20:05)
[2016-12-25] MEDS: CARVEDILOL 12.5 MG TABLET PO SCH ×2 (09:45→20:06)
[2016-12-25] MEDS: DOCUSATE SODIUM 250 MG CAPSULE PO SCH ×2 (09:45→20:06)
[2016-12-25] MEDS: AmLODIPine BESYLATE 10 MG TABLET PO SCH (09:45)
[2016-12-25] MEDS: HEPARIN SODIUM,PORCINE 5,000 UNITS/ML VIAL SQ SCH ×2 (09:46→20:06)
[2016-12-25] MEDS: BUDESONIDE/FORMOTEROL FUMARATE 80-4.5 MCG/PUFF 6.9 GM INHALER IH SCH ×2 (09:53→20:07)
[2016-12-25 11:33] VITALS: BP 156/77
[2016-12-25] MEDS ORDERED: GLYCOPYRROLATE 0.2 MG/ML VIAL IM ONE (12:00)
[2016-12-25] MEDS ORDERED: KETAMINE HCL 50 MG/ML 10 ML VIAL IVP ONE (12:00)
[2016-12-25] MEDS ORDERED: MIDAZOLAM HCL 2 MG/2 ML VIAL IVP ONE (12:00)
[2016-12-25] MEDS ORDERED: METOCLOPRAMIDE HCL 5 MG/ML 2 ML VIAL IVP ONE (12:00)
[2016-12-25] MEDS ORDERED: PROPOFOL 1% 20 ML VIAL IVP ONE (12:00)
[2016-12-25] MEDS ORDERED: LIDOCAINE HCL/PF 2% 5 ML VIAL INJ ONE (12:00)
[2016-12-25] MEDS ORDERED: DiphenhydrAMINE HCL 50 MG/ML VIAL IVP ONE (12:00)
[2016-12-25] MEDS ORDERED: ONDANSETRON HCL 4 MG/2 ML VIAL IVP ONE (12:00)
[2016-12-25] MEDS: OXYGEN THERAPY IH SCH ×2 (13:59→19:16)
[2016-12-25 15:58] VITALS: BP 166/88
[2016-12-25] MEDS: NICOTINE 21 MG/24 HOUR PATCH TD SCH (16:59)
[2016-12-25] MEDS: ALBUTEROL SULFATE 2.5 MG/0.5 ML NEB SOLUTION NEB SCH ×2 (19:16→23:09)
[2016-12-25] MEDS: IPRATROPIUM BROMIDE 0.5 MG/2.5 ML NEB SOLUTION NEB SCH ×2 (19:16→23:09)
[2016-12-25 19:44] VITALS: BP 152/85
[2016-12-25] MEDS: ZOLPIDEM TARTRATE 10 MG TABLET PO PRN (20:06)
[2016-12-25] MEDS: ALPRAZolam 0.5 MG TABLET PO PRN (20:09)
[2016-12-25] MEDS ORDERED: LEVOFLOXACIN 250 MG TABLET PO ONE (21:30)
[2016-12-25 23:11] VITALS: BP 150/86
[2016-12-26] MEDS: ALBUTEROL SULFATE 2.5 MG/0.5 ML NEB SOLUTION NEB SCH ×6 (03:07→23:00)
[2016-12-26] MEDS: IPRATROPIUM BROMIDE 0.5 MG/2.5 ML NEB SOLUTION NEB SCH ×6 (03:07→23:00)
[2016-12-26] MEDS: MORPHINE SULFATE 2 MG/ML SYRINGE IVP PRN ×3 (04:00→13:02)
[2016-12-26 05:00] VITALS: BP 143/84
[2016-12-26 06:33] LABS: BASOPHILS % (AUTO) 0.4 % (0.0-2.0); EOSINOPHILS % (AUTO) 2.7 % (1.0-6.0); HEMATOCRIT 29.9 % (41-53); HEMOGLOBIN 10.2 g/dL (13.5-17.5); LYMPHOCYTES # (AUTO) 0.8 K/uL (1.0-4.8); LYMPHOCYTES % (AUTO) 23.6 % (22.0-44.0); MEAN CORPUSCULAR HEMOGLOBIN 30.8 pg (26.0-34.0); MEAN CORPUSCULAR HGB CONC 34.2 G/dL (31.0-37.0); MEAN CORPUSCULAR VOLUME 90 fL (80-100); MONOCYTES # (AUTO) 0.2 K/uL (0.1-1.0); MONOCYTES % (AUTO) 6.7 % (2.0-9.0); NEUTROPHILS # (AUTO) 2.3 K/uL (1.8-7.7); NEUTROPHILS % (AUTO) 66.6 % (40.0-70.0); PLATELET COUNT (AUTO) 97 K/uL (150-450); RED BLOOD CELL COUNT(AUTO) 3.32 MIL/uL (4.50-5.90); RED CELL DISTRIBUTION WIDTH 16.8 % (11.5-14.5); WHITE BLOOD COUNT (AUTO) 3.4 K/uL (4.5-11.0)
[2016-12-26 07:09] LABS: CALCIUM, TOTAL 8.8 mg/dL (8.8-10.5); CREATININE 10.35 mg/dL (0.60-1.30); POTASSIUM 4.8 mmol/L (3.5-5.1)
[2016-12-26 07:38] VITALS: BP 152/85
[2016-12-26] MEDS: OXYGEN THERAPY IH SCH ×2 (07:58→20:17)
[2016-12-26] MEDS: CALCIUM ACETATE 667 MG CAPSULE PO SCH ×3 (08:00→18:04)
[2016-12-26] MEDS: TIOTROPIUM BROMIDE 18 MCG/INH HANDIHALER [5] IH SCH (08:01)
[2016-12-26] MEDS: DOCUSATE SODIUM 250 MG CAPSULE PO SCH ×2 (08:02→20:16)
[2016-12-26] MEDS: DiphenhydrAMINE HCL 25 MG CAPSULE PO SCH ×2 (08:02→20:16)
[2016-12-26] MEDS: BUDESONIDE/FORMOTEROL FUMARATE 80-4.5 MCG/PUFF 6.9 GM INHALER IH SCH ×2 (08:08→20:16)
[2016-12-26] MEDS: VITAMIN B COMP/VIT C/FOLIC ACID CAPSULE PO SCH (08:08)
[2016-12-26] MEDS: NICOTINE 21 MG/24 HOUR PATCH TD SCH (08:09)
[2016-12-26] MEDS: HEPARIN SODIUM,PORCINE 5,000 UNITS/ML VIAL SQ SCH ×2 (08:09→20:16)
[2016-12-26] MEDS: AmLODIPine BESYLATE 10 MG TABLET PO SCH (09:00)
[2016-12-26] MEDS: CARVEDILOL 12.5 MG TABLET PO SCH ×2 (09:00→20:16)
[2016-12-26 11:48] VITALS: BP 155/85
[2016-12-26] MEDS ORDERED: DiphenhydrAMINE HCL 50 MG/ML VIAL IVP ONE ×2 (12:00→12:15)
[2016-12-26] MEDS ORDERED: LIDOCAINE HCL/PF 1% 2 ML VIAL INJ ONE (12:00)
[2016-12-26] MEDS: ALPRAZolam 0.5 MG TABLET PO PRN (12:53)
[2016-12-26] MEDS ORDERED: SODIUM CHLORIDE 0.9% 2,000 ML IV ONE (13:03)
[2016-12-26] MEDS ORDERED: LIDOCAINE HCL/PF 1% 2 ML VIAL ID PRN (18:00)
[2016-12-26] MEDS ORDERED: DiphenhydrAMINE HCL 50 MG/ML VIAL IVP PRN (18:00)
[2016-12-26] MEDS: LEVOFLOXACIN 250 MG TABLET PO SCH (18:04)
[2016-12-26] MEDS: MORPHINE SULFATE 4 MG/ML SYRINGE IVP PRN ×2 (18:05→21:53)
[2016-12-26 19:50] VITALS: BP 148/93
[2016-12-26] MEDS: ZOLPIDEM TARTRATE 10 MG TABLET PO PRN (21:55)
[2016-12-26 22:45] VITALS: BP 167/94
[2016-12-27] MEDS: MORPHINE SULFATE 4 MG/ML SYRINGE IVP PRN ×6 (01:52→21:17)
[2016-12-27] MEDS: ALBUTEROL SULFATE 2.5 MG/0.5 ML NEB SOLUTION NEB SCH ×6 (03:00→23:03)
[2016-12-27] MEDS: IPRATROPIUM BROMIDE 0.5 MG/2.5 ML NEB SOLUTION NEB SCH ×6 (03:00→23:04)
[2016-12-27 04:32] VITALS: BP 156/89
[2016-12-27] MEDS: ALPRAZolam 0.5 MG TABLET PO PRN ×2 (04:43→20:15)
[2016-12-27] MEDS: LINACLOTIDE 290 MCG CAPSULE PO SCH (05:52)
[2016-12-27 07:58] VITALS: BP 157/100
[2016-12-27] MEDS: CALCIUM ACETATE 667 MG CAPSULE PO SCH ×3 (08:34→17:28)
[2016-12-27] MEDS: TIOTROPIUM BROMIDE 18 MCG/INH HANDIHALER [5] IH SCH (08:34)
[2016-12-27] MEDS: OXYGEN THERAPY IH SCH ×2 (08:34→19:22)
[2016-12-27] MEDS: AmLODIPine BESYLATE 10 MG TABLET PO SCH (08:35)
[2016-12-27] MEDS: DiphenhydrAMINE HCL 25 MG CAPSULE PO SCH ×2 (08:35→20:15)
[2016-12-27] MEDS: CARVEDILOL 12.5 MG TABLET PO SCH ×2 (08:35→20:15)
[2016-12-27] MEDS: BUDESONIDE/FORMOTEROL FUMARATE 80-4.5 MCG/PUFF 6.9 GM INHALER IH SCH ×2 (08:35→20:15)
[2016-12-27] MEDS: LEVOFLOXACIN 250 MG TABLET PO SCH (08:35)
[2016-12-27] MEDS: VITAMIN B COMP/VIT C/FOLIC ACID CAPSULE PO SCH (08:35)
[2016-12-27] MEDS: HEPARIN SODIUM,PORCINE 5,000 UNITS/ML VIAL SQ SCH ×2 (08:35→20:15)
[2016-12-27] MEDS: DOCUSATE SODIUM 250 MG CAPSULE PO SCH ×2 (08:35→20:15)
[2016-12-27] MEDS: NICOTINE 21 MG/24 HOUR PATCH TD SCH (08:38)
[2016-12-27 11:05] VITALS: BP 131/76
[2016-12-27 15:20] VITALS: BP 155/87
[2016-12-27] MEDS: ONDANSETRON HCL 4 MG/2 ML VIAL IVP PRN (18:51)
[2016-12-27 19:50] VITALS: BP 150/85
[2016-12-27] MEDS: ZOLPIDEM TARTRATE 10 MG TABLET PO PRN (23:13)
[2016-12-27 23:29] VITALS: BP 155/91
[2016-12-28] MEDS: ONDANSETRON HCL 4 MG/2 ML VIAL IVP PRN ×4 (01:18→20:32)
[2016-12-28] MEDS: MORPHINE SULFATE 4 MG/ML SYRINGE IVP PRN ×6 (01:18→23:44)
[2016-12-28] MEDS: ALBUTEROL SULFATE 2.5 MG/0.5 ML NEB SOLUTION NEB SCH ×6 (02:44→23:12)
[2016-12-28] MEDS: IPRATROPIUM BROMIDE 0.5 MG/2.5 ML NEB SOLUTION NEB SCH ×6 (02:44→23:12)
[2016-12-28 04:35] VITALS: BP 147/75
[2016-12-28] MEDS: LINACLOTIDE 290 MCG CAPSULE PO SCH (05:24)
[2016-12-28 07:20] VITALS: BP 148/88
[2016-12-28] MEDS: ALPRAZolam 0.5 MG TABLET PO PRN ×2 (08:13→16:00)
[2016-12-28] MEDS: DiphenhydrAMINE HCL 25 MG CAPSULE PO SCH ×2 (08:13→19:38)
[2016-12-28] MEDS: LEVOFLOXACIN 250 MG TABLET PO SCH (08:13)
[2016-12-28] MEDS: HEPARIN SODIUM,PORCINE 5,000 UNITS/ML VIAL SQ SCH ×2 (08:13→19:46)
[2016-12-28] MEDS: NICOTINE 21 MG/24 HOUR PATCH TD SCH (08:13)
[2016-12-28] MEDS: TIOTROPIUM BROMIDE 18 MCG/INH HANDIHALER [5] IH SCH (08:14)
[2016-12-28] MEDS: CALCIUM ACETATE 667 MG CAPSULE PO SCH ×3 (08:14→17:41)
[2016-12-28] MEDS: CARVEDILOL 12.5 MG TABLET PO SCH ×2 (08:14→19:39)
[2016-12-28] MEDS: DOCUSATE SODIUM 250 MG CAPSULE PO SCH ×2 (08:14→19:39)
[2016-12-28] MEDS: AmLODIPine BESYLATE 10 MG TABLET PO SCH (08:14)
[2016-12-28] MEDS: BUDESONIDE/FORMOTEROL FUMARATE 80-4.5 MCG/PUFF 6.9 GM INHALER IH SCH ×2 (08:15→19:44)
[2016-12-28] MEDS: OXYGEN THERAPY IH SCH ×2 (08:19→23:12)
[2016-12-28] MEDS: VITAMIN B COMP/VIT C/FOLIC ACID CAPSULE PO SCH (08:23)
[2016-12-28 11:31] VITALS: BP 155/89
[2016-12-28 16:05] VITALS: BP 165/94
[2016-12-28 19:32] VITALS: BP 185/89
[2016-12-28 23:07] VITALS: BP 163/90
[2016-12-29] MEDS: ZOLPIDEM TARTRATE 10 MG TABLET PO PRN (00:32)
[2016-12-29] MEDS: ONDANSETRON HCL 4 MG/2 ML VIAL IVP PRN ×3 (02:25→17:32)
[2016-12-29] MEDS: ALBUTEROL SULFATE 2.5 MG/0.5 ML NEB SOLUTION NEB SCH ×4 (03:38→16:06)
[2016-12-29] MEDS: IPRATROPIUM BROMIDE 0.5 MG/2.5 ML NEB SOLUTION NEB SCH ×4 (03:38→16:06)
[2016-12-29 04:32] VITALS: BP 155/87
[2016-12-29 07:45] VITALS: BP 152/92
[2016-12-29] MEDS: OXYGEN THERAPY IH SCH (08:52)
[2016-12-29] MEDS: CARVEDILOL 12.5 MG TABLET PO SCH (09:00)
[2016-12-29] MEDS: HEPARIN SODIUM,PORCINE 5,000 UNITS/ML VIAL SQ SCH (09:00)
[2016-12-29] MEDS: AmLODIPine BESYLATE 10 MG TABLET PO SCH (09:00)
[2016-12-29] MEDS: DiphenhydrAMINE HCL 25 MG CAPSULE PO SCH (09:00)
[2016-12-29] MEDS ORDERED: EPOETIN ALFA 10,000 UNITS/ML 2 ML VIAL SQ SCH (09:00)
[2016-12-29] MEDS: CALCIUM ACETATE 667 MG CAPSULE PO SCH ×2 (09:07→12:11)
[2016-12-29] MEDS: LINACLOTIDE 290 MCG CAPSULE PO SCH (09:07)
[2016-12-29] MEDS: VITAMIN B COMP/VIT C/FOLIC ACID CAPSULE PO SCH (09:08)
[2016-12-29] MEDS: LEVOFLOXACIN 250 MG TABLET PO SCH (09:08)
[2016-12-29] MEDS: NICOTINE 21 MG/24 HOUR PATCH TD SCH (09:09)
[2016-12-29] MEDS: BUDESONIDE/FORMOTEROL FUMARATE 80-4.5 MCG/PUFF 6.9 GM INHALER IH SCH (09:09)
[2016-12-29] MEDS: DOCUSATE SODIUM 250 MG CAPSULE PO SCH (09:09)
[2016-12-29] MEDS: TIOTROPIUM BROMIDE 18 MCG/INH HANDIHALER [5] IH SCH (09:10)
[2016-12-29] MEDS: MORPHINE SULFATE 4 MG/ML SYRINGE IVP PRN (10:30)
[2016-12-29] MEDS ORDERED: LOSARTAN POTASSIUM 50 MG TABLET PO SCH (11:00)
[2016-12-29] MEDS: MORPHINE SULFATE 2 MG/ML SYRINGE IVP PRN ×2 (12:10→17:34)
[2016-12-29] MEDS ORDERED: DiphenhydrAMINE HCL 50 MG/ML VIAL IVP ONE ×2 (12:15→18:04)
[2016-12-29] MEDS ORDERED: SODIUM CHLORIDE 0.9% 1,000 ML IV ONE ×2 (12:16→12:17)
[2016-12-29 12:50] VITALS: BP 161/88
[2016-12-29] MEDS ORDERED: LIDOCAINE HCL/PF 1% 2 ML VIAL ID PRN (17:15)
[2016-12-29] MEDS ORDERED: DiphenhydrAMINE HCL 50 MG/ML VIAL IVP PRN (17:15)
[2016-12-29] MEDS ORDERED: LIDOCAINE HCL/PF 1% 2 ML VIAL INJ ONE (18:04)
== END 2016-12-29 18:05 | disposition home or self-care (01) | DRG 988 ==
LOC: 6N 12-24 15:55
PROVIDERS: ADMIT Internal Medicine Geriatric Medicine; ATTEND Internal Medicine Geriatric Medicine
PROC: 0QBR3ZX Excision of Left Toe Phalanx, Percutaneous Approach, Diagnostic (ICD-10-PCS; principal; 2016-12-25 08:11)
PROC: 5A1D70Z Performance of Urinary Filtration, Intermittent, Less than 6 Hours Per Day (ICD-10-PCS; 2016-12-26)
PROC: 5A1D70Z Performance of Urinary Filtration, Intermittent, Less than 6 Hours Per Day (ICD-10-PCS; 2016-12-29)
DX: E11.69 Type 2 diabetes mellitus with other specified complication (principal); I13.2 Hypertensive heart and chronic kidney disease with heart failure and with stage 5 chronic kidney disease, or end stage renal disease; M86.8X7 Other osteomyelitis, ankle and foot; D61.818 Other pancytopenia; E11.621 Type 2 diabetes mellitus with foot ulcer; E44.0 Moderate protein-calorie malnutrition; E11.51 Type 2 diabetes mellitus with diabetic peripheral angiopathy without gangrene; N18.6 End stage renal disease; E11.22 Type 2 diabetes mellitus with diabetic chronic kidney disease; I50.9 Heart failure, unspecified; B19.20 Unspecified viral hepatitis C without hepatic coma; E21.3 Hyperparathyroidism, unspecified; F17.200 Nicotine dependence, unspecified, uncomplicated; J44.9 Chronic obstructive pulmonary disease, unspecified; K58.9 Irritable bowel syndrome, unspecified; K74.60 Unspecified cirrhosis of liver; L97.529 Non-pressure chronic ulcer of other part of left foot with unspecified severity; Z79.02 Long term (current) use of antithrombotics/antiplatelets; Z79.51 Long term (current) use of inhaled steroids; Z79.82 Long term (current) use of aspirin; Z79.899 Other long term (current) drug therapy; Z68.23 Body mass index [BMI] 23.0-23.9, adult; Z23 Encounter for immunization; Z91.19 Patient's noncompliance with other medical treatment and regimen; Z99.2 Dependence on renal dialysis; Z88.8 Allergy status to other drugs, medicaments and biological substances; Z91.011 Allergy to milk products; Z91.013 Allergy to seafood; Z79.4 Long term (current) use of insulin
CPT/HCPCS: 82962; 84145; 85651; 86140; 87015; 87070; 87081; 87101; 87205; 87340; 88307; 88311; 90935; 93306; 94640; J0885; J1200; J1644; J2250; J2270; J2405; J2704; J2765; J3490; J7030

== ENCOUNTER 2017-01-27 14:26 | Inpatient (IN) | payer MEDICARE, OTHER ==
[~2017-01-27] VITALS: Ht 190.5 cm; Wt 70.1 kg
[2017-01-27 15:02] LABS: GLUCOSE,POINT OF CARE 97 MG/DL (70-110)
[2017-01-27] MEDS ORDERED: ONDANSETRON HCL 4 MG/2 ML VIAL IVP ONE (17:00)
[2017-01-27] MEDS ORDERED: MORPHINE SULFATE 4 MG/ML SYRINGE IVP ONE (17:00)
[2017-01-27 17:15] LABS: BASOPHILS % (AUTO) 0.6 % (0.0-2.0); EOSINOPHILS % (AUTO) 2.3 % (1.0-6.0); HEMATOCRIT 31.6 % (41-53); HEMOGLOBIN 10.7 g/dL (13.5-17.5); LYMPHOCYTES % (AUTO) 19.5 % (22.0-44.0); MEAN CORPUSCULAR HEMOGLOBIN 30.1 pg (26.0-34.0); MEAN CORPUSCULAR HGB CONC 33.8 G/dL (31.0-37.0); MEAN CORPUSCULAR VOLUME 89 fL (80-100); MONOCYTES # (AUTO) 0.4 K/uL (0.1-1.0); MONOCYTES % (AUTO) 7.2 % (2.0-9.0); NEUTROPHILS # (AUTO) 3.7 K/uL (1.8-7.7); NEUTROPHILS % (AUTO) 70.4 % (40.0-70.0); PLATELET COUNT (AUTO) 147 K/uL (150-450); RED BLOOD CELL COUNT(AUTO) 3.55 MIL/uL (4.50-5.90); RED CELL DISTRIBUTION WIDTH 16.2 % (11.5-14.5); WHITE BLOOD COUNT (AUTO) 5.3 K/uL (4.5-11.0)
[2017-01-27 17:28] LABS: INR 1.1 (0.9-1.1); PROTHROMBIN TIME 12.1 SEC (9.4-11.6)
[2017-01-27 17:48] LABS: CALCIUM, TOTAL 8.8 mg/dL (8.8-10.5); CREATININE 8.23 mg/dL (0.60-1.30); POTASSIUM 4.5 mmol/L (3.5-5.1)
[2017-01-27 17:54] LABS: ALBUMIN 2.9 g/dL (3.4-5.0); BILIRUBIN,TOTAL 0.3 mg/dL (0.1-1.0); TOTAL PROTEIN, SERUM 8.3 g/dL (6.4-8.2)
[2017-01-27] MEDS ORDERED: ONDANSETRON HCL 4 MG/2 ML VIAL IVP PRN ×2 (20:00→23:30)
[2017-01-27] MEDS ORDERED: MORPHINE SULFATE 4 MG/ML SYRINGE IVP PRN (20:00)
[2017-01-27] MEDS ORDERED: ACETAMINOPHEN 325 MG TABLET PO PRN ×2 (20:00→23:30)
[2017-01-27] MEDS ORDERED: 0.9% SODIUM CHLORIDE 10 ML SYRINGE IVP PRN (20:00)
[2017-01-27] MEDS ORDERED: OxyCODONE HCL/ACETAMINOPHEN 5-325 MG TABLET PO PRN (20:00)
[2017-01-27 21:22] VITALS: BP 142/75
[2017-01-27] MEDS ORDERED: ZOLPIDEM TARTRATE 5 MG TABLET PO PRN (23:30)
[2017-01-27] MEDS ORDERED: ALBUTEROL SULFATE 2.5 MG/0.5 ML NEB SOLUTION NEB PRN (23:30)
[2017-01-27] MEDS ORDERED: BISACODYL 10 MG RECTAL RECTAL SUPPOSITORY PR PRN (23:30)
[2017-01-27] MEDS ORDERED: IPRATROPIUM BROMIDE 0.5 MG/2.5 ML NEB SOLUTION NEB PRN (23:30)
[2017-01-27] MEDS ORDERED: MORPHINE SULFATE 2 MG/ML SYRINGE IVP PRN (23:30)
[2017-01-27] MEDS ORDERED: MAGNESIUM HYDROXIDE SUSPENSION 30 ML UDCUP PO PRN (23:30)
[2017-01-27] MEDS ORDERED: HEPARIN SODIUM,PORCINE 5,000 UNITS/ML VIAL IVP PRN ×2 (23:45)
[2017-01-28 00:25] VITALS: BP 133/77
[2017-01-28] MEDS ORDERED: SODIUM CHLORIDE 0.9% 0 ML IV ONE (00:30)
[2017-01-28] MEDS: HEPARIN SODIUM 25000 UNITS/D5W 250 ML IV PRN ×2 (00:41→15:18)
[2017-01-28] MEDS ORDERED: HEPARIN SODIUM,PORCINE 5,000 UNITS/ML VIAL IVP PRN (00:53)
[2017-01-28 03:10] VITALS: BP 138/77
[2017-01-28] MEDS: MORPHINE SULFATE 4 MG/ML SYRINGE IVP PRN ×5 (04:36→21:26)
[2017-01-28] MEDS ORDERED: PNEUMOCOCCAL VACCINE POLYVALENT 0.5 ML VIAL [PPSV23] IM ONE (05:00)
[2017-01-28 06:12] LABS: BASOPHILS % (AUTO) 0.3 % (0.0-2.0); EOSINOPHILS % (AUTO) 2.5 % (1.0-6.0); HEMOGLOBIN 9.1 g/dL (13.5-17.5); LYMPHOCYTES # (AUTO) 0.9 K/uL (1.0-4.8); MEAN CORPUSCULAR HGB CONC 33.7 G/dL (31.0-37.0); MEAN CORPUSCULAR VOLUME 89 fL (80-100); MONOCYTES # (AUTO) 0.3 K/uL (0.1-1.0); MONOCYTES % (AUTO) 8.3 % (2.0-9.0); NEUTROPHILS % (AUTO) 60.9 % (40.0-70.0); PLATELET COUNT (AUTO) 109 K/uL (150-450); RED BLOOD CELL COUNT(AUTO) 3.03 MIL/uL (4.50-5.90); RED CELL DISTRIBUTION WIDTH 16.1 % (11.5-14.5); WHITE BLOOD COUNT (AUTO) 3.3 K/uL (4.5-11.0)
[2017-01-28 06:19] LABS: INR 1.2 (0.9-1.1); PROTHROMBIN TIME 12.4 SEC (9.4-11.6)
[2017-01-28] MEDS: LINACLOTIDE 290 MCG CAPSULE PO SCH (06:56)
[2017-01-28 07:05] LABS: HEMOGLOBIN A1C 4.1 % (4.5-6.2)
[2017-01-28 07:12] LABS: ANION GAP 11 mmol/L (8-16); CALCIUM, TOTAL 8.2 mg/dL (8.8-10.5); CARBON DIOXIDE 29 mmol/L (22-29); CHLORIDE 91 mmol/L (98-107); CHOL/HDL RATIO 5.2 (4.2-7.3); CREATINE KINASE, TOTAL 28 U/L (39-308); CREATININE 9.21 mg/dL (0.60-1.30); GLOMERULAR FILTR. RATE CALC 7 mL/min (>60); POTASSIUM 3.8 mmol/L (3.5-5.1); SODIUM SERUM 131 mmol/L (136-145); THYROID STIMULATING HORMONE 0.91 uIU/mL (0.36-3.74); UREA NITROGEN, BLOOD 35 mg/dL (7-18)
[2017-01-28 07:32] VITALS: BP 148/83
[2017-01-28] MEDS: DiphenhydrAMINE HCL 25 MG CAPSULE PO SCH ×2 (08:31→21:25)
[2017-01-28] MEDS: VITAMIN B COMP/VIT C/FOLIC ACID CAPSULE PO SCH (08:31)
[2017-01-28] MEDS: AmLODIPine BESYLATE 10 MG TABLET PO SCH (08:32)
[2017-01-28] MEDS: OMEPRAZOLE 20 MG CAPSULE PO SCH (08:32)
[2017-01-28] MEDS: ASPIRIN 81 MG CHEWABLE TABLET PO SCH (08:33)
[2017-01-28] MEDS: TIOTROPIUM BROMIDE 18 MCG/INH HANDIHALER [5] IH SCH (08:33)
[2017-01-28] MEDS: CALCIUM ACETATE 667 MG CAPSULE PO SCH ×3 (08:33→17:56)
[2017-01-28] MEDS: DOCUSATE SODIUM 250 MG CAPSULE PO SCH ×2 (08:33→21:25)
[2017-01-28] MEDS: CARVEDILOL 12.5 MG TABLET PO SCH ×2 (08:34→21:25)
[2017-01-28] MEDS: BUDESONIDE/FORMOTEROL FUMARATE 80-4.5 MCG/PUFF 6.9 GM INHALER IH SCH ×2 (08:34→21:25)
[2017-01-28] MEDS: HEPARIN SODIUM,PORCINE 5,000 UNITS/ML VIAL IVP PRN ×2 (08:43→17:57)
[2017-01-28] MEDS ORDERED: MAGNESIUM OXIDE 400 MG TABLET PO ONE (10:00)
[2017-01-28 11:06] VITALS: BP 159/94
[2017-01-28] MEDS: NICOTINE 21 MG/24 HOUR PATCH TD SCH (11:13)
[2017-01-28] MEDS: PIPERACILLIN SODIUM/TAZOBACTAM 2.25 GM in DEXTROSE 5%-WATER 50 ML IV SCH ×2 (11:14→21:27)
[2017-01-28 15:26] VITALS: BP 148/87
[2017-01-28 20:37] VITALS: BP 160/76
[2017-01-28] MEDS: TraZODone HCL 50 MG TABLET PO SCH (23:43)
[2017-01-29] VITALS: BP 156/80
[2017-01-29] MEDS: MORPHINE SULFATE 4 MG/ML SYRINGE IVP PRN ×5 (01:55→18:51)
[2017-01-29 06:12] VITALS: BP 163/90
[2017-01-29] MEDS: PIPERACILLIN SODIUM/TAZOBACTAM 2.25 GM in DEXTROSE 5%-WATER 50 ML IV SCH ×3 (06:15→18:53)
[2017-01-29 06:47] LABS: BASOPHILS % (AUTO) 0.1 % (0.0-2.0); EOSINOPHILS % (AUTO) 1.9 % (1.0-6.0); HEMATOCRIT 28.8 % (41-53); HEMOGLOBIN 9.7 g/dL (13.5-17.5); LYMPHOCYTES # (AUTO) 0.6 K/uL (1.0-4.8); LYMPHOCYTES % (AUTO) 20.3 % (22.0-44.0); MEAN CORPUSCULAR HEMOGLOBIN 29.8 pg (26.0-34.0); MEAN CORPUSCULAR HGB CONC 33.8 G/dL (31.0-37.0); MEAN CORPUSCULAR VOLUME 88 fL (80-100); MONOCYTES # (AUTO) 0.2 K/uL (0.1-1.0); MONOCYTES % (AUTO) 7.2 % (2.0-9.0); NEUTROPHILS # (AUTO) 2.2 K/uL (1.8-7.7); NEUTROPHILS % (AUTO) 70.5 % (40.0-70.0); PLATELET COUNT (AUTO) 105 K/uL (150-450); RED BLOOD CELL COUNT(AUTO) 3.26 MIL/uL (4.50-5.90); WHITE BLOOD COUNT (AUTO) 3.2 K/uL (4.5-11.0)
[2017-01-29 06:53] LABS: CALCIUM, TOTAL 8.6 mg/dL (8.8-10.5); CREATININE 11.09 mg/dL (0.60-1.30); POTASSIUM 4.3 mmol/L (3.5-5.1)
[2017-01-29] MEDS: HEPARIN SODIUM,PORCINE 5,000 UNITS/ML VIAL IVP PRN (07:51)
[2017-01-29] MEDS: CALCIUM ACETATE 667 MG CAPSULE PO SCH ×3 (08:00→18:50)
[2017-01-29] MEDS: NICOTINE 21 MG/24 HOUR PATCH TD SCH (08:45)
[2017-01-29] MEDS: BUDESONIDE/FORMOTEROL FUMARATE 80-4.5 MCG/PUFF 6.9 GM INHALER IH SCH ×2 (08:47→21:04)
[2017-01-29] MEDS: TIOTROPIUM BROMIDE 18 MCG/INH HANDIHALER [5] IH SCH (08:47)
[2017-01-29] MEDS: CARVEDILOL 12.5 MG TABLET PO SCH ×2 (09:00→21:05)
[2017-01-29] MEDS: AmLODIPine BESYLATE 10 MG TABLET PO SCH (09:00)
[2017-01-29 09:28] LABS: GLUCOSE,POINT OF CARE 101 MG/DL (70-110)
[2017-01-29] MEDS ORDERED: IOHEXOL 300 MG/ML 50 ML VIAL ONE (10:05)
[2017-01-29] MEDS ORDERED: HEPARIN SODIUM 1000 UNITS/NS 0 ML ONE (10:05)
[2017-01-29] MEDS ORDERED: SODIUM BICARBONATE 50 MEQ/50 ML VIAL ONE (10:05)
[2017-01-29] MEDS ORDERED: LIDOCAINE HCL/PF 1% 30 ML VIAL ONE (10:05)
[2017-01-29] MEDS: HEPARIN SODIUM 25000 UNITS/D5W 250 ML IV PRN (10:13)
[2017-01-29] MEDS ORDERED: IODIXANOL 320 MG/ML 50 ML VIAL ONE (10:27)
[2017-01-29 10:51] VITALS: BP 192/98
[2017-01-29] MEDS ORDERED: FentaNYL CITRATE-PF 100 MCG/2 ML VIAL ONE (11:00)
[2017-01-29] MEDS ORDERED: MIDAZOLAM HCL 2 MG/2 ML VIAL ONE (11:01)
[2017-01-29] MEDS ORDERED: SODIUM CHLORIDE 0.9% 500 ML IV ONE (11:13)
[2017-01-29] MEDS ORDERED: IODIXANOL 320 MG/ML 50 ML VIAL IARTER ONE (11:15)
[2017-01-29] MEDS ORDERED: FentaNYL CITRATE-PF 100 MCG/2 ML VIAL IVP ONE ×2 (11:15→11:45)
[2017-01-29] MEDS ORDERED: MIDAZOLAM HCL 2 MG/2 ML VIAL IVP ONE ×2 (11:15→11:45)
[2017-01-29] MEDS ORDERED: LIDOCAINE 1% 30 ML/SOD BICARB 8.4% 4 ML SQ ONE (11:15)
[2017-01-29] MEDS ORDERED: CLOPIDOGREL BISULFATE 300 MG TABLET ONE (11:45)
[2017-01-29] MEDS ORDERED: CLOPIDOGREL BISULFATE 300 MG TABLET PO ONE (11:45)
[2017-01-29 11:46] VITALS: BP 163/86
[2017-01-29] MEDS: LINACLOTIDE 290 MCG CAPSULE PO SCH (12:16)
[2017-01-29] MEDS: DOCUSATE SODIUM 250 MG CAPSULE PO SCH ×2 (12:16→21:05)
[2017-01-29] MEDS: ASPIRIN 81 MG CHEWABLE TABLET PO SCH (12:17)
[2017-01-29] MEDS: VITAMIN B COMP/VIT C/FOLIC ACID CAPSULE PO SCH (12:17)
[2017-01-29] MEDS: OMEPRAZOLE 20 MG CAPSULE PO SCH (12:17)
[2017-01-29 12:21] VITALS: BP 145/89
[2017-01-29] MEDS: DiphenhydrAMINE HCL 25 MG CAPSULE PO SCH ×2 (12:28→21:05)
[2017-01-29] MEDS: ALPRAZolam 0.5 MG TABLET PO PRN (14:01)
[2017-01-29] MEDS ORDERED: SODIUM CHLORIDE 0.9% 2,000 ML IV ONE (14:22)
[2017-01-29] MEDS ORDERED: LIDOCAINE HCL/PF 1% 2 ML VIAL ID PRN (15:45)
[2017-01-29] MEDS ORDERED: DiphenhydrAMINE HCL 50 MG/ML VIAL IVP PRN (15:45)
[2017-01-29] MEDS ORDERED: MANNITOL 25%-12.5 GM/50 ML VIAL IVP PRN (15:45)
[2017-01-29] MEDS: EPOETIN ALFA 10,000 UNITS/ML VIAL SQ SCH (18:50)
[2017-01-29 20:14] VITALS: BP 152/86
[2017-01-29] MEDS: TraZODone HCL 50 MG TABLET PO SCH (21:05)
[2017-01-30] MEDS: MORPHINE SULFATE 4 MG/ML SYRINGE IVP PRN ×6 (00:27→21:25)
[2017-01-30] MEDS: PIPERACILLIN SODIUM/TAZOBACTAM 2.25 GM in DEXTROSE 5%-WATER 50 ML IV SCH ×3 (00:29→17:31)
[2017-01-30 00:36] VITALS: BP 140/77
[2017-01-30] MEDS: LINACLOTIDE 290 MCG CAPSULE PO SCH (05:20)
[2017-01-30 06:23] LABS: BASOPHILS % (AUTO) 0.4 % (0.0-2.0); EOSINOPHILS % (AUTO) 1.7 % (1.0-6.0); HEMATOCRIT 27.9 % (41-53); HEMOGLOBIN 9.4 g/dL (13.5-17.5); LYMPHOCYTES # (AUTO) 0.7 K/uL (1.0-4.8); LYMPHOCYTES % (AUTO) 18.2 % (22.0-44.0); MEAN CORPUSCULAR HEMOGLOBIN 29.9 pg (26.0-34.0); MEAN CORPUSCULAR HGB CONC 33.8 G/dL (31.0-37.0); MEAN CORPUSCULAR VOLUME 89 fL (80-100); MONOCYTES # (AUTO) 0.4 K/uL (0.1-1.0); MONOCYTES % (AUTO) 10.7 % (2.0-9.0); NEUTROPHILS # (AUTO) 2.7 K/uL (1.8-7.7); PLATELET COUNT (AUTO) 114 K/uL (150-450); RED BLOOD CELL COUNT(AUTO) 3.15 MIL/uL (4.50-5.90); WHITE BLOOD COUNT (AUTO) 3.9 K/uL (4.5-11.0)
[2017-01-30 06:59] LABS: CALCIUM, TOTAL 8.9 mg/dL (8.8-10.5); CREATININE 7.3 mg/dL (0.60-1.30); POTASSIUM 4.6 mmol/L (3.5-5.1)
[2017-01-30] MEDS: LANSOPRAZOLE 30 MG CAPSULE PO SCH (09:05)
[2017-01-30] MEDS: VITAMIN B COMP/VIT C/FOLIC ACID CAPSULE PO SCH (09:06)
[2017-01-30] MEDS: DOCUSATE SODIUM 250 MG CAPSULE PO SCH ×2 (09:06→21:24)
[2017-01-30] MEDS: ALPRAZolam 0.5 MG TABLET PO PRN (09:06)
[2017-01-30] MEDS: BUDESONIDE/FORMOTEROL FUMARATE 80-4.5 MCG/PUFF 6.9 GM INHALER IH SCH ×2 (09:06→21:24)
[2017-01-30] MEDS: CALCIUM ACETATE 667 MG CAPSULE PO SCH ×3 (09:06→17:31)
[2017-01-30] MEDS: CARVEDILOL 12.5 MG TABLET PO SCH ×2 (09:07→21:24)
[2017-01-30] MEDS: ASPIRIN 81 MG CHEWABLE TABLET PO SCH (09:07)
[2017-01-30] MEDS: DiphenhydrAMINE HCL 25 MG CAPSULE PO SCH ×2 (09:07→21:24)
[2017-01-30] MEDS: TIOTROPIUM BROMIDE 18 MCG/INH HANDIHALER [5] IH SCH (09:07)
[2017-01-30] MEDS: AmLODIPine BESYLATE 10 MG TABLET PO SCH (09:08)
[2017-01-30] MEDS: NICOTINE 21 MG/24 HOUR PATCH TD SCH (09:08)
[2017-01-30] MEDS: CLOPIDOGREL BISULFATE 75 MG TABLET PO SCH (09:09)
[2017-01-30 12:53] VITALS: BP 144/66
[2017-01-30] MEDS ORDERED: PIPERACILLIN SODIUM/TAZOBACTAM 0.75 GM in DEXTROSE 5%-WATER 50 ML IV PRN (13:15)
[2017-01-30 17:39] VITALS: BP 154/88
[2017-01-30 20:25] VITALS: BP 138/87
[2017-01-30] MEDS: TraZODone HCL 50 MG TABLET PO SCH (21:24)
[2017-01-31] VITALS (8 sets, daily range): BP systolic 102–167; BP diastolic 71–98
[2017-01-31] MEDS: PIPERACILLIN SODIUM/TAZOBACTAM 2.25 GM in DEXTROSE 5%-WATER 50 ML IV SCH ×3 (01:28→17:02)
[2017-01-31] MEDS: MORPHINE SULFATE 4 MG/ML SYRINGE IVP PRN ×5 (01:28→21:01)
[2017-01-31] MEDS: LINACLOTIDE 290 MCG CAPSULE PO SCH (06:38)
[2017-01-31] MEDS: DiphenhydrAMINE HCL 25 MG CAPSULE PO SCH ×2 (08:54→21:01)
[2017-01-31] MEDS: DOCUSATE SODIUM 250 MG CAPSULE PO SCH ×2 (08:55→21:00)
[2017-01-31] MEDS: ASPIRIN 81 MG CHEWABLE TABLET PO SCH (08:55)
[2017-01-31] MEDS: VITAMIN B COMP/VIT C/FOLIC ACID CAPSULE PO SCH (08:55)
[2017-01-31] MEDS: AmLODIPine BESYLATE 10 MG TABLET PO SCH (08:55)
[2017-01-31] MEDS: CARVEDILOL 12.5 MG TABLET PO SCH ×2 (08:56→21:01)
[2017-01-31] MEDS: LANSOPRAZOLE 30 MG CAPSULE PO SCH (08:57)
[2017-01-31] MEDS: CLOPIDOGREL BISULFATE 75 MG TABLET PO SCH (08:57)
[2017-01-31] MEDS: NICOTINE 21 MG/24 HOUR PATCH TD SCH (08:58)
[2017-01-31] MEDS: TIOTROPIUM BROMIDE 18 MCG/INH HANDIHALER [5] IH SCH (08:59)
[2017-01-31] MEDS: BUDESONIDE/FORMOTEROL FUMARATE 80-4.5 MCG/PUFF 6.9 GM INHALER IH SCH ×2 (08:59→21:06)
[2017-01-31] MEDS ORDERED: LEVOFLOXACIN 250 MG TABLET PO SCH (09:00)
[2017-01-31] MEDS: EPOETIN ALFA 10,000 UNITS/ML VIAL SQ SCH (09:00)
[2017-01-31] MEDS: CALCIUM ACETATE 667 MG CAPSULE PO SCH ×3 (09:22→16:55)
[2017-01-31] MEDS ORDERED: SODIUM CHLORIDE 0.9% 2,000 ML IV ONE (12:38)
[2017-01-31] MEDS ORDERED: DiphenhydrAMINE HCL 50 MG/ML VIAL IVP PRN (14:15)
[2017-01-31] MEDS ORDERED: LIDOCAINE HCL/PF 1% 2 ML VIAL ID PRN (14:15)
[2017-01-31] MEDS: TraZODone HCL 50 MG TABLET PO SCH (21:00)
[2017-02-01] MEDS: MORPHINE SULFATE 4 MG/ML SYRINGE IVP PRN ×4 (00:42→15:11)
[2017-02-01] MEDS: PIPERACILLIN SODIUM/TAZOBACTAM 2.25 GM in DEXTROSE 5%-WATER 50 ML IV SCH ×2 (02:00→09:56)
[2017-02-01 05:19] VITALS: BP 140/78
[2017-02-01] MEDS: LINACLOTIDE 290 MCG CAPSULE PO SCH (06:18)
[2017-02-01 08:02] VITALS: BP 130/75
[2017-02-01] MEDS: BUDESONIDE/FORMOTEROL FUMARATE 80-4.5 MCG/PUFF 6.9 GM INHALER IH SCH (08:05)
[2017-02-01] MEDS: LANSOPRAZOLE 30 MG CAPSULE PO SCH (08:05)
[2017-02-01] MEDS: TIOTROPIUM BROMIDE 18 MCG/INH HANDIHALER [5] IH SCH (08:05)
[2017-02-01] MEDS: DiphenhydrAMINE HCL 25 MG CAPSULE PO SCH (08:07)
[2017-02-01] MEDS: CLOPIDOGREL BISULFATE 75 MG TABLET PO SCH (08:07)
[2017-02-01] MEDS: DOCUSATE SODIUM 250 MG CAPSULE PO SCH (08:08)
[2017-02-01] MEDS: AmLODIPine BESYLATE 10 MG TABLET PO SCH (08:08)
[2017-02-01] MEDS: ASPIRIN 81 MG CHEWABLE TABLET PO SCH (08:08)
[2017-02-01] MEDS: CALCIUM ACETATE 667 MG CAPSULE PO SCH ×2 (08:08→12:10)
[2017-02-01] MEDS: VITAMIN B COMP/VIT C/FOLIC ACID CAPSULE PO SCH (08:08)
[2017-02-01] MEDS: CARVEDILOL 12.5 MG TABLET PO SCH (08:09)
[2017-02-01] MEDS: NICOTINE 21 MG/24 HOUR PATCH TD SCH (08:09)
[2017-02-01] MEDS: ALPRAZolam 0.5 MG TABLET PO PRN (09:56)
[2017-02-01 11:05] VITALS: BP 125/76
[2017-02-01] MEDS ORDERED: NICO-650 MISC (13:54)
[2017-02-01] MEDS ORDERED: TRAZ-144 PO (13:56)
[2017-02-01] MEDS ORDERED: ZOSY225FZ IV (13:56)
[2017-02-01] MEDS ORDERED: ACET650S14 PR (13:57)
[2017-02-01] MEDS ORDERED: AUD NEB (13:58)
[2017-02-01] MEDS ORDERED: ALPR0.5T8 PO (13:59)
[2017-02-01] MEDS ORDERED: BISA5TAB12 PO (14:00)
[2017-02-01] MEDS ORDERED: MOM30 PO (14:02)
[2017-02-01] MEDS ORDERED: IPRNEB IH (14:02)
[2017-02-01] MEDS ORDERED: ZOLP5 PO (14:04)
[2017-02-01] MEDS ORDERED: HYDR-309 PO (14:04)
== END 2017-02-01 16:10 | DRG 252 ==
LOC: EMS 14:29 → 4E 19:30 → 6N 01-31 12:33
PROVIDERS: ADMIT Internal Medicine Geriatric Medicine; ATTEND Internal Medicine Geriatric Medicine
PROC: 047M3ZZ Dilation of Right Popliteal Artery, Percutaneous Approach (ICD-10-PCS; principal; 2017-01-29)
PROC: 047K3ZZ Dilation of Right Femoral Artery, Percutaneous Approach (ICD-10-PCS; 2017-01-29)
PROC: B41G1ZZ Fluoroscopy of Left Lower Extremity Arteries using Low Osmolar Contrast (ICD-10-PCS; 2017-01-29)
PROC: B41F1ZZ Fluoroscopy of Right Lower Extremity Arteries using Low Osmolar Contrast (ICD-10-PCS; 2017-01-29)
DX: E11.52 Type 2 diabetes mellitus with diabetic peripheral angiopathy with gangrene (principal); N18.6 End stage renal disease; I12.0 Hypertensive chronic kidney disease with stage 5 chronic kidney disease or end stage renal disease; D69.6 Thrombocytopenia, unspecified; E11.22 Type 2 diabetes mellitus with diabetic chronic kidney disease; E11.69 Type 2 diabetes mellitus with other specified complication; M86.9 Osteomyelitis, unspecified; N25.81 Secondary hyperparathyroidism of renal origin; I73.9 Peripheral vascular disease, unspecified; I99.8 Other disorder of circulatory system; B19.20 Unspecified viral hepatitis C without hepatic coma; D64.9 Anemia, unspecified; E78.5 Hyperlipidemia, unspecified; F17.200 Nicotine dependence, unspecified, uncomplicated; G89.4 Chronic pain syndrome; Z79.02 Long term (current) use of antithrombotics/antiplatelets; Z79.51 Long term (current) use of inhaled steroids; Z79.82 Long term (current) use of aspirin; Z79.899 Other long term (current) drug therapy; Z89.519 Acquired absence of unspecified leg below knee; Z91.19 Patient's noncompliance with other medical treatment and regimen; Z99.2 Dependence on renal dialysis; Z88.8 Allergy status to other drugs, medicaments and biological substances; Z91.012 Allergy to eggs; Z91.011 Allergy to milk products; Z91.013 Allergy to seafood; Z28.21 Immunization not carried out because of patient refusal
CPT/HCPCS: 36200; 75630; 75716; 75962; 82306; 82607; 82746; 82962; 83036; 83540; 83550; 83735; 84439; 84443; 87040; 87081; 87340; 90935; 93005; 93925; 93970; 96374; 96375; 96376; 99285; J0885; J1644; J2250; J2270; J2405; J2543; J3010; J3490; J7030; J7040; J7060; Q9967

== ENCOUNTER → 2017-04-14 | Outpatient (CLI) | payer MEDICARE, OTHER ==
[~2017-04-14] VITALS: Ht 190.5 cm; Wt 70.7 kg
[~2017-04-14] MED LIST changes: +ACET650S14 PR; +ALPR0.5T8 PO; +ALPR1TAB7 PO; +AUD NEB; +BISA5TAB12 PO; +CALC25 PO; +CARI350T PO; +CARV25 PO; +GABA-531 PO; +HYDR-309 PO; +IPRNEB IH; +LIDOCAINE HCL 4% 50 ML SOLUTION TP ONE; +LINA145C PO; +MOM30 PO; +NICO-650 MISC; +OXYC40 PO; +PERCT10 PO; +TRAZ-144 PO; +ZOLP5 PO; +ZOSY225FZ IV
[2017-04-14 08:58] VITALS: BP 168/86
== END | disposition home or self-care (01) ==
LOC: HBOWC 07:03
PROVIDERS: ATTEND Emergency Medicine
DX: E11.621 Type 2 diabetes mellitus with foot ulcer (principal); L97.521 Non-pressure chronic ulcer of other part of left foot limited to breakdown of skin; E11.22 Type 2 diabetes mellitus with diabetic chronic kidney disease; I12.0 Hypertensive chronic kidney disease with stage 5 chronic kidney disease or end stage renal disease; N18.6 End stage renal disease; E11.69 Type 2 diabetes mellitus with other specified complication; M86.672 Other chronic osteomyelitis, left ankle and foot; E11.52 Type 2 diabetes mellitus with diabetic peripheral angiopathy with gangrene; G89.4 Chronic pain syndrome; E78.5 Hyperlipidemia, unspecified; F17.200 Nicotine dependence, unspecified, uncomplicated; Z79.02 Long term (current) use of antithrombotics/antiplatelets; Z79.82 Long term (current) use of aspirin; Z79.51 Long term (current) use of inhaled steroids; Z99.2 Dependence on renal dialysis
CPT/HCPCS: 11042; 87070; 87205

== ENCOUNTER 2017-10-29 07:24 | Inpatient (IN) | payer MEDICARE, OTHER ==
[~2017-10-29] VITALS: Ht 188 cm; Wt 65.4 kg
[~2017-10-29 07:24] MED LIST changes: -ACET650S14 PR; -ALPR0.5T8 PO; -BISA5TAB12 PO; -CARV12 PO; -CLOP75 PO; -HYDR-309 PO; -LIDOCAINE HCL 4% 50 ML SOLUTION TP ONE; -LINA290C PO; -NICO-650 MISC; -TRAZ-144 PO; +TRAZ-219 PO; -ZOSY225FZ IV
[2017-10-29] MEDS ORDERED: HEPA500018 SQ (07:40)
[2017-10-29] MEDS ORDERED: HYDR25TA84 PO (07:40)
[2017-10-29] MEDS ORDERED: SYMB8060 IH (07:40)
[2017-10-29] MEDS ORDERED: NICO-650 MISC (07:40)
[2017-10-29] MEDS ORDERED: ARIP15TA7 PO (07:40)
[2017-10-29] MEDS ORDERED: MethylPREDNISolone SOD SUCC 125 MG/2 ML VIAL IVP ONE (08:00)
[2017-10-29] MEDS ORDERED: ALBUTEROL SULFATE 5 MG/ML 20 ML NEB SOLN [BULK] NEB ONE (08:00)
[2017-10-29] MEDS ORDERED: IPRATROPIUM BROMIDE 0.5 MG/2.5 ML NEB SOLUTION NEB ONE (08:00)
[2017-10-29] MEDS ORDERED: MORPHINE SULFATE 4 MG/ML SYRINGE IVP ONE (08:00)
[2017-10-29] MEDS ORDERED: 0.9% SODIUM CHLORIDE 15 ML NEB SOLUTION NEB ONE (08:16)
[2017-10-29] MEDS ORDERED: VANCOMYCIN HCL 1 GM/D5% WATER 200 ML IV ONE (08:30)
[2017-10-29] MEDS ORDERED: MEROPENEM 1 GM in SODIUM CHLORIDE 0.9% 100 ML IV ONE (08:30)
[2017-10-29 09:14] LABS: GLUCOSE,POINT OF CARE 75 MG/DL (70-110)
[2017-10-29 09:25] LABS: BASOPHILS % (AUTO) 0.6 % (0.0-2.0); EOSINOPHILS % (AUTO) 0 % (1.0-6.0); HEMATOCRIT 40.9 % (41-53); HEMOGLOBIN 13.7 g/dL (13.5-17.5); LYMPHOCYTES # (AUTO) 1.1 K/uL (1.0-4.8); LYMPHOCYTES % (AUTO) 11.1 % (22.0-44.0); MEAN CORPUSCULAR HEMOGLOBIN 30.5 pg (26.0-34.0); MEAN CORPUSCULAR HGB CONC 33.4 G/dL (31.0-37.0); MEAN CORPUSCULAR VOLUME 91 fL (80-100); MONOCYTES # (AUTO) 0.4 K/uL (0.1-1.0); MONOCYTES % (AUTO) 3.6 % (2.0-9.0); NEUTROPHILS # (AUTO) 8.5 K/uL (1.8-7.7); NEUTROPHILS % (AUTO) 84.7 % (40.0-70.0); PLATELET COUNT (AUTO) 238 K/uL (150-450); RED BLOOD CELL COUNT(AUTO) 4.49 MIL/uL (4.50-5.90); RED CELL DISTRIBUTION WIDTH 21.9 % (11.5-14.5)
[2017-10-29 10:21] LABS: BILIRUBIN,TOTAL 0.5 mg/dL (0.1-1.0); CALCIUM, TOTAL 8.8 mg/dL (8.8-10.5); CREATININE 9.58 mg/dL (0.60-1.30); TOTAL PROTEIN, SERUM 7.3 g/dL (6.4-8.2)
[2017-10-29 10:23] LABS: POTASSIUM 6.7 mmol/L (3.5-5.1)
[2017-10-29] MEDS ORDERED: INSULIN REGULAR, HUMAN 100 UNITS/ML IVP ONE (10:30)
[2017-10-29] MEDS ORDERED: SODIUM BICARBONATE [ADULT] 8.4% 50 MEQ/50 ML SYRINGE IVP ONE (10:30)
[2017-10-29] MEDS ORDERED: SODIUM POLYSTYRENE SULFONATE 15 GM/60 ML SUSPENSION BOTTLE PO ONE (10:30)
[2017-10-29] MEDS ORDERED: DEXTROSE 50%-WATER 25 GM/50 ML SYRINGE IVP ONE (10:30)
[2017-10-29] MEDS ORDERED: CALCIUM GLUCONATE 1,000 MG in DEXTROSE 5%-WATER 50 ML IV ONE (10:30)
[2017-10-29] MEDS ORDERED: ACETAMINOPHEN 325 MG TABLET PO PRN ×2 (11:00→12:15)
[2017-10-29] MEDS ORDERED: ONDANSETRON HCL 4 MG/2 ML VIAL IVP PRN (11:00)
[2017-10-29] MEDS ORDERED: MORPHINE SULFATE 4 MG/ML SYRINGE IVP PRN (11:00)
[2017-10-29] MEDS ORDERED: OxyCODONE HCL/ACETAMINOPHEN 5-325 MG TABLET PO PRN (11:00)
[2017-10-29] MEDS ORDERED: ALBUTEROL SULFATE 2.5 MG/0.5 ML NEB SOLUTION NEB SCH (11:00)
[2017-10-29] MEDS ORDERED: IPRATROPIUM BROMIDE 0.5 MG/2.5 ML NEB SOLUTION NEB SCH (11:00)
[2017-10-29] MEDS ORDERED: BISACODYL 10 MG RECTAL RECTAL SUPPOSITORY PR PRN (12:15)
[2017-10-29] MEDS ORDERED: OxyCODONE HCL/ACETAMINOPHEN 10-325 MG TABLET PO PRN (12:15)
[2017-10-29] MEDS: HEPARIN SODIUM,PORCINE 5,000 UNITS/ML VIAL SQ SCH ×2 (12:15→21:00)
[2017-10-29] MEDS ORDERED: MAGNESIUM HYDROXIDE SUSPENSION 30 ML UDCUP PO PRN ×2 (12:15)
[2017-10-29] MEDS ORDERED: SODIUM CHLORIDE 0.9% 2,000 ML IV ONE (12:55)
[2017-10-29] MEDS: GABAPENTIN 300 MG CAPSULE PO SCH ×2 (13:00→16:00)
[2017-10-29 14:17] VITALS: BP 116/67
[2017-10-29] MEDS: OxyCODONE HCL/ACETAMINOPHEN 10-325 MG TABLET PO PRN (16:28)
[2017-10-29 17:04] VITALS: BP 126/72
[2017-10-29] MEDS: CALCIUM ACETATE 667 MG CAPSULE PO SCH (18:00)
[2017-10-29 19:19] VITALS: BP 133/71
[2017-10-29] MEDS: CARVEDILOL 12.5 MG TABLET PO SCH (21:23)
[2017-10-29] MEDS: DOCUSATE SODIUM 250 MG CAPSULE PO SCH (21:23)
[2017-10-29] MEDS: BUDESONIDE/FORMOTEROL FUMARATE 80-4.5 MCG/PUFF 6.9 GM INHALER IH SCH (21:24)
[2017-10-30 00:12] VITALS: BP 114/67
[2017-10-30] MEDS: OxyCODONE HCL/ACETAMINOPHEN 10-325 MG TABLET PO PRN ×4 (00:26→21:49)
[2017-10-30] MEDS: BENZOCAINE/MENTHOL LOZENGE PO PRN ×4 (00:26→17:57)
[2017-10-30 04:30] VITALS: BP 135/71
[2017-10-30 07:39] VITALS: BP 129/68
[2017-10-30] MEDS: CALCIUM ACETATE 667 MG CAPSULE PO SCH ×3 (08:46→17:57)
[2017-10-30] MEDS: ASPIRIN 81 MG CHEWABLE TABLET PO SCH (08:47)
[2017-10-30] MEDS: DiphenhydrAMINE HCL 25 MG CAPSULE PO PRN (08:47)
[2017-10-30] MEDS: LINACLOTIDE 145 MCG CAPSULE PO SCH (08:48)
[2017-10-30] MEDS: CALCITRIOL 0.25 MCG CAPSULE PO SCH (08:48)
[2017-10-30] MEDS: ARIPiprazole 15 MG TABLET PO SCH (08:50)
[2017-10-30] MEDS: NICOTINE 21 MG/24 HOUR PATCH TD SCH (08:50)
[2017-10-30] MEDS: DOCUSATE SODIUM 250 MG CAPSULE PO SCH ×2 (08:51→20:38)
[2017-10-30] MEDS: HEPARIN SODIUM,PORCINE 5,000 UNITS/ML VIAL SQ SCH ×2 (08:51→20:38)
[2017-10-30] MEDS: AmLODIPine BESYLATE 10 MG TABLET PO SCH (08:52)
[2017-10-30] MEDS: BUDESONIDE/FORMOTEROL FUMARATE 80-4.5 MCG/PUFF 6.9 GM INHALER IH SCH ×2 (08:52→20:38)
[2017-10-30] MEDS: CARVEDILOL 12.5 MG TABLET PO SCH ×2 (08:52→20:38)
[2017-10-30] MEDS: TIOTROPIUM BROMIDE 18 MCG/INH HANDIHALER [5] IH SCH (08:52)
[2017-10-30] MEDS: GABAPENTIN 300 MG CAPSULE PO SCH ×5 (09:00→20:38)
[2017-10-30] MEDS ORDERED: SODIUM CHLORIDE 0.9% 2,000 ML IV ONE (09:37)
[2017-10-30] MEDS: ALPRAZolam 0.25 MG TABLET PO PRN ×2 (12:29→17:57)
[2017-10-30] MEDS ORDERED: VANCOMYCIN HCL 1 GM/D5% WATER 200 ML IV ONE (13:00)
[2017-10-30] MEDS ORDERED: SODIUM CHLORIDE 0.9% 100 ML ONE (14:38)
[2017-10-30] MEDS ORDERED: VANCOMYCIN HCL 1 GM/D5% WATER 200 ML IV PRN (15:00)
[2017-10-30] MEDS: CefTAZidime PENTAHYDRATE 1 GM in DEXTROSE 5%-WATER 50 ML IV SCH (15:21)
[2017-10-30 15:43] VITALS: BP 140/75
[2017-10-30] MEDS: ALBUTEROL SULFATE 2.5 MG/0.5 ML NEB SOLUTION NEB PRN (16:21)
[2017-10-30] MEDS: IPRATROPIUM BROMIDE 0.5 MG/2.5 ML NEB SOLUTION NEB PRN (16:22)
[2017-10-30 20:04] VITALS: BP 128/76
[2017-10-30] MEDS: ONDANSETRON HCL 4 MG/2 ML VIAL IVP PRN (20:20)
[2017-10-30 23:05] VITALS: BP 100/59
[2017-10-30] MEDS ORDERED: LIDOCAINE/PF 1% 2 ML VIAL IM ONE (23:09)
[2017-10-31] MEDS: DiphenhydrAMINE HCL 25 MG CAPSULE PO PRN (01:15)
[2017-10-31] MEDS: OxyCODONE HCL/ACETAMINOPHEN 10-325 MG TABLET PO PRN ×4 (04:03→21:48)
[2017-10-31] MEDS: ONDANSETRON HCL 4 MG/2 ML VIAL IVP PRN ×5 (04:03→23:28)
[2017-10-31 04:41] VITALS: BP 117/70
[2017-10-31 06:41] LABS: CALCIUM, TOTAL 9.1 mg/dL (8.8-10.5); CREATININE 7.88 mg/dL (0.60-1.30); MAGNESIUM 1.8 mg/dL (1.80-2.40); PHOSPHORUS 6.3 mg/dL (2.5-4.9); POTASSIUM 4.7 mmol/L (3.5-5.1)
[2017-10-31] MEDS: HEPARIN SODIUM,PORCINE 5,000 UNITS/ML VIAL SQ SCH ×3 (07:52→21:00)
[2017-10-31] MEDS: CARVEDILOL 12.5 MG TABLET PO SCH ×3 (07:52→23:59)
[2017-10-31] MEDS: GABAPENTIN 300 MG CAPSULE PO SCH ×4 (07:53→20:01)
[2017-10-31] MEDS: AmLODIPine BESYLATE 10 MG TABLET PO SCH (07:53)
[2017-10-31] MEDS: NICOTINE 21 MG/24 HOUR PATCH TD SCH (07:53)
[2017-10-31] MEDS: ASPIRIN 81 MG CHEWABLE TABLET PO SCH (07:53)
[2017-10-31] MEDS: BUDESONIDE/FORMOTEROL FUMARATE 80-4.5 MCG/PUFF 6.9 GM INHALER IH SCH ×2 (07:53→23:37)
[2017-10-31] MEDS: BENZOCAINE/MENTHOL LOZENGE PO PRN ×3 (07:53→14:42)
[2017-10-31] MEDS: CALCITRIOL 0.25 MCG CAPSULE PO SCH ×2 (07:54→08:05)
[2017-10-31] MEDS: CALCIUM ACETATE 667 MG CAPSULE PO SCH ×3 (07:54→18:00)
[2017-10-31] MEDS: TIOTROPIUM BROMIDE 18 MCG/INH HANDIHALER [5] IH SCH (07:54)
[2017-10-31] MEDS: LINACLOTIDE 145 MCG CAPSULE PO SCH ×2 (07:55→08:05)
[2017-10-31] MEDS: ARIPiprazole 15 MG TABLET PO SCH (07:55)
[2017-10-31] MEDS: DOCUSATE SODIUM 250 MG CAPSULE PO SCH ×2 (07:55→21:00)
[2017-10-31 07:58] VITALS: BP 112/65
[2017-10-31] MEDS: ALPRAZolam 0.25 MG TABLET PO PRN (10:23)
[2017-10-31] MEDS: VITAMIN B COMP/VIT C/FOLIC ACID CAPSULE PO SCH (10:45)
[2017-10-31 11:29] VITALS: BP 117/68
[2017-10-31] MEDS: SEVELAMER CARBONATE 800 MG TABLET PO SCH ×2 (12:00→18:00)
[2017-10-31] MEDS: CefTAZidime PENTAHYDRATE 1 GM in DEXTROSE 5%-WATER 50 ML IV SCH (14:42)
[2017-10-31] MEDS ORDERED: SODIUM CHLORIDE 0.9% 100 ML ONE (14:48)
[2017-10-31] MEDS: IPRATROPIUM BROMIDE 0.5 MG/2.5 ML NEB SOLUTION NEB PRN ×3 (15:44→23:51)
[2017-10-31] MEDS: ALBUTEROL SULFATE 2.5 MG/0.5 ML NEB SOLUTION NEB PRN ×3 (15:44→23:50)
[2017-10-31 16:06] VITALS: BP 130/65
[2017-10-31 19:44] VITALS: BP 124/68
[2017-10-31 23:31] VITALS: BP 117/68
[2017-11-01] MEDS: ALPRAZolam 0.25 MG TABLET PO PRN (01:59)
[2017-11-01] MEDS: ONDANSETRON HCL 4 MG/2 ML VIAL IVP PRN ×5 (03:20→21:13)
[2017-11-01] MEDS: OxyCODONE HCL/ACETAMINOPHEN 10-325 MG TABLET PO PRN ×2 (04:20→21:48)
[2017-11-01 04:30] VITALS: BP 135/78
[2017-11-01 06:19] LABS: BASOPHILS % (AUTO) 0.5 % (0.0-2.0); EOSINOPHILS % (AUTO) 0.2 % (1.0-6.0); HEMATOCRIT 33.5 % (41-53); HEMOGLOBIN 11.4 g/dL (13.5-17.5); LYMPHOCYTES # (AUTO) 0.8 K/uL (1.0-4.8); MEAN CORPUSCULAR HEMOGLOBIN 30.3 pg (26.0-34.0); MEAN CORPUSCULAR HGB CONC 33.9 G/dL (31.0-37.0); MEAN CORPUSCULAR VOLUME 89 fL (80-100); MONOCYTES # (AUTO) 0.5 K/uL (0.1-1.0); MONOCYTES % (AUTO) 5.6 % (2.0-9.0); NEUTROPHILS # (AUTO) 8.3 K/uL (1.8-7.7); PLATELET COUNT (AUTO) 219 K/uL (150-450); RED BLOOD CELL COUNT(AUTO) 3.74 MIL/uL (4.50-5.90); RED CELL DISTRIBUTION WIDTH 20.9 % (11.5-14.5)
[2017-11-01] MEDS ORDERED: SODIUM PHOS/SODIUM BIPHOS 133 ML ENEMA PR PRN (06:45)
[2017-11-01 06:53] LABS: NEUTROPHILS % (AUTO) 85.7 % (40.0-70.0)
[2017-11-01 07:02] LABS: CALCIUM, TOTAL 9.6 mg/dL (8.8-10.5); CREATININE 10.04 mg/dL (0.60-1.30); POTASSIUM 5.1 mmol/L (3.5-5.1); VANCOMYCIN,RANDOM 24.8 mcg/mL (25.0-50.0)
[2017-11-01] MEDS: ALBUTEROL SULFATE 2.5 MG/0.5 ML NEB SOLUTION NEB PRN (07:45)
[2017-11-01] MEDS: IPRATROPIUM BROMIDE 0.5 MG/2.5 ML NEB SOLUTION NEB PRN (07:45)
[2017-11-01 07:47] VITALS: BP 163/99
[2017-11-01] MEDS: SEVELAMER CARBONATE 800 MG TABLET PO SCH ×3 (08:00→17:12)
[2017-11-01] MEDS: CALCIUM ACETATE 667 MG CAPSULE PO SCH ×3 (08:00→17:12)
[2017-11-01] MEDS: ASPIRIN 81 MG CHEWABLE TABLET PO SCH (08:51)
[2017-11-01] MEDS: ARIPiprazole 15 MG TABLET PO SCH (08:51)
[2017-11-01] MEDS: GABAPENTIN 300 MG CAPSULE PO SCH ×5 (08:52→21:12)
[2017-11-01] MEDS: CARVEDILOL 12.5 MG TABLET PO SCH ×2 (08:52→21:12)
[2017-11-01] MEDS: LINACLOTIDE 145 MCG CAPSULE PO SCH (08:52)
[2017-11-01] MEDS: BUDESONIDE/FORMOTEROL FUMARATE 80-4.5 MCG/PUFF 6.9 GM INHALER IH SCH ×2 (08:53→21:49)
[2017-11-01] MEDS: DOCUSATE SODIUM 250 MG CAPSULE PO SCH ×2 (08:53→21:12)
[2017-11-01] MEDS: TIOTROPIUM BROMIDE 18 MCG/INH HANDIHALER [5] IH SCH (08:54)
[2017-11-01] MEDS: AmLODIPine BESYLATE 10 MG TABLET PO SCH (08:55)
[2017-11-01] MEDS: VITAMIN B COMP/VIT C/FOLIC ACID CAPSULE PO SCH (09:00)
[2017-11-01] MEDS: CALCITRIOL 0.25 MCG CAPSULE PO SCH (09:00)
[2017-11-01] MEDS: HEPARIN SODIUM,PORCINE 5,000 UNITS/ML VIAL SQ SCH ×2 (09:00→21:00)
[2017-11-01] MEDS: NICOTINE 21 MG/24 HOUR PATCH TD SCH (09:01)
[2017-11-01] MEDS ORDERED: VANCOMYCIN HCL 500 MG in DEXTROSE 5%-WATER 100 ML IV ONE (10:00)
[2017-11-01] MEDS ORDERED: LACTULOSE 20 GM/30 ML SOLUTION UDCUP PO ONE ×2 (11:00→17:30)
[2017-11-01 11:38] VITALS: BP 130/71
[2017-11-01] MEDS: CefTAZidime PENTAHYDRATE 1 GM in DEXTROSE 5%-WATER 50 ML IV SCH (12:11)
[2017-11-01 15:37] VITALS: BP 136/77
[2017-11-01 19:43] VITALS: BP 129/99
[2017-11-01 23:30] VITALS: BP 144/79
[2017-11-02 04:20] VITALS: BP 151/84
[2017-11-02 06:00] LABS: GLUCOMETER DEV NAME(LOC) 5S 1M; GLUCOSE,POINT OF CARE 87 MG/DL (70-110)
[2017-11-02 06:17] LABS: BASOPHILS % (AUTO) 0.1 % (0.0-2.0); EOSINOPHILS % (AUTO) 0 % (1.0-6.0); HEMATOCRIT 32.9 % (41-53); HEMOGLOBIN 11.3 g/dL (13.5-17.5); LYMPHOCYTES # (AUTO) 0.6 K/uL (1.0-4.8); LYMPHOCYTES % (AUTO) 5.5 % (22.0-44.0); MEAN CORPUSCULAR HEMOGLOBIN 30.5 pg (26.0-34.0); MEAN CORPUSCULAR HGB CONC 34.2 G/dL (31.0-37.0); MEAN CORPUSCULAR VOLUME 89 fL (80-100); MONOCYTES # (AUTO) 0.5 K/uL (0.1-1.0); MONOCYTES % (AUTO) 4.5 % (2.0-9.0); NEUTROPHILS # (AUTO) 9.9 K/uL (1.8-7.7); PLATELET COUNT (AUTO) 217 K/uL (150-450); RED BLOOD CELL COUNT(AUTO) 3.69 MIL/uL (4.50-5.90); RED CELL DISTRIBUTION WIDTH 20.6 % (11.5-14.5)
[2017-11-02 06:36] LABS: CALCIUM, TOTAL 9.7 mg/dL (8.8-10.5); CREATININE 11.49 mg/dL (0.60-1.30); POTASSIUM 5.8 mmol/L (3.5-5.1)
[2017-11-02 06:45] LABS: NEUTROPHILS % (AUTO) 89.9 % (40.0-70.0)
[2017-11-02 07:26] VITALS: BP 139/96
[2017-11-02] MEDS: SEVELAMER CARBONATE 800 MG TABLET PO SCH ×3 (08:00→17:55)
[2017-11-02] MEDS: CALCIUM ACETATE 667 MG CAPSULE PO SCH ×3 (08:00→17:55)
[2017-11-02] MEDS: AmLODIPine BESYLATE 10 MG TABLET PO SCH (09:00)
[2017-11-02] MEDS: ASPIRIN 81 MG CHEWABLE TABLET PO SCH (09:00)
[2017-11-02] MEDS: VITAMIN B COMP/VIT C/FOLIC ACID CAPSULE PO SCH (09:00)
[2017-11-02] MEDS: LINACLOTIDE 145 MCG CAPSULE PO SCH (09:00)
[2017-11-02] MEDS: CALCITRIOL 0.25 MCG CAPSULE PO SCH (09:00)
[2017-11-02] MEDS: GABAPENTIN 300 MG CAPSULE PO SCH ×4 (09:00→20:15)
[2017-11-02] MEDS: ARIPiprazole 15 MG TABLET PO SCH (09:00)
[2017-11-02] MEDS: CARVEDILOL 12.5 MG TABLET PO SCH ×2 (09:00→20:15)
[2017-11-02] MEDS: DOCUSATE SODIUM 250 MG CAPSULE PO SCH ×2 (09:00→21:28)
[2017-11-02] MEDS: HEPARIN SODIUM,PORCINE 5,000 UNITS/ML VIAL SQ SCH ×2 (09:00→20:15)
[2017-11-02] MEDS: BUDESONIDE/FORMOTEROL FUMARATE 80-4.5 MCG/PUFF 6.9 GM INHALER IH SCH ×2 (10:35→20:14)
[2017-11-02] MEDS: TIOTROPIUM BROMIDE 18 MCG/INH HANDIHALER [5] IH SCH (10:35)
[2017-11-02] MEDS: NICOTINE 21 MG/24 HOUR PATCH TD SCH (10:36)
[2017-11-02] MEDS ORDERED: MORPHINE SULFATE 4 MG/ML SYRINGE IVP PRN (11:15)
[2017-11-02] MEDS ORDERED: MORPHINE SULFATE 2 MG/ML SYRINGE IVP PRN (11:15)
[2017-11-02] MEDS ORDERED: LIDOCAINE/PF 1% 2 ML VIAL INJ ONE (12:00)
[2017-11-02] MEDS ORDERED: HEPARIN SODIUM,PORCINE 1,000 UNITS/ML VIAL IVP ONE (12:00)
[2017-11-02] MEDS: CefTAZidime PENTAHYDRATE 1 GM in DEXTROSE 5%-WATER 50 ML IV SCH (13:12)
[2017-11-02 13:33] VITALS: BP 112/72
[2017-11-02] MEDS ORDERED: LACTULOSE 20 GM/30 ML SOLUTION UDCUP PO PRN (14:00)
[2017-11-02] MEDS: DEXTROSE 5%-0.45% SODIUM CHL 1,000 ML IV SCH (14:13)
[2017-11-02] MEDS: OxyCODONE HCL/ACETAMINOPHEN 10-325 MG TABLET PO PRN (14:54)
[2017-11-02 15:43] VITALS: BP 133/70
[2017-11-02] MEDS ORDERED: PIPERACILLIN SODIUM/TAZOBACTAM 0.75 GM in DEXTROSE 5%-WATER 50 ML IV PRN (18:00)
[2017-11-02 19:54] VITALS: BP 147/79
[2017-11-02] MEDS: PIPERACILLIN SODIUM/TAZOBACTAM 2.25 GM in DEXTROSE 5%-WATER 50 ML IV SCH (20:05)
[2017-11-02] MEDS: DOCUSATE SODIUM 100 MG CAPSULE PO PRN (20:15)
[2017-11-02] MEDS: ONDANSETRON HCL 4 MG/2 ML VIAL IVP PRN (23:11)
[2017-11-02 23:55] VITALS: BP 109/76
[2017-11-03] MEDS: OxyCODONE HCL/ACETAMINOPHEN 10-325 MG TABLET PO PRN ×3 (00:57→22:46)
[2017-11-03] MEDS: PIPERACILLIN SODIUM/TAZOBACTAM 2.25 GM in DEXTROSE 5%-WATER 50 ML IV SCH ×3 (03:49→20:08)
[2017-11-03 05:24] VITALS: BP 112/62
[2017-11-03 07:53] VITALS: BP 115/40
[2017-11-03 07:54] LABS: CREATININE 10.1 mg/dL (0.60-1.30); POTASSIUM 5.5 mmol/L (3.5-5.1)
[2017-11-03] MEDS: SEVELAMER CARBONATE 800 MG TABLET PO SCH ×3 (08:00→18:00)
[2017-11-03] MEDS: CALCIUM ACETATE 667 MG CAPSULE PO SCH ×3 (08:00→18:00)
[2017-11-03] MEDS: HEPARIN SODIUM,PORCINE 5,000 UNITS/ML VIAL SQ SCH ×2 (08:39→20:09)
[2017-11-03] MEDS ORDERED: -POST HEMODIALYSIS NOTE- MISC SCH (09:00)
[2017-11-03] MEDS: CALCITRIOL 0.25 MCG CAPSULE PO SCH (09:00)
[2017-11-03] MEDS: ASPIRIN 81 MG CHEWABLE TABLET PO SCH (09:00)
[2017-11-03] MEDS: GABAPENTIN 300 MG CAPSULE PO SCH ×4 (09:00→20:09)
[2017-11-03] MEDS: VITAMIN B COMP/VIT C/FOLIC ACID CAPSULE PO SCH (09:00)
[2017-11-03] MEDS: AmLODIPine BESYLATE 10 MG TABLET PO SCH (09:00)
[2017-11-03] MEDS: TIOTROPIUM BROMIDE 18 MCG/INH HANDIHALER [5] IH SCH (09:00)
[2017-11-03] MEDS: LINACLOTIDE 145 MCG CAPSULE PO SCH (09:00)
[2017-11-03] MEDS: NICOTINE 21 MG/24 HOUR PATCH TD SCH (09:00)
[2017-11-03] MEDS: CARVEDILOL 12.5 MG TABLET PO SCH ×3 (09:00→20:09)
[2017-11-03] MEDS: DOCUSATE SODIUM 250 MG CAPSULE PO SCH ×2 (09:00→20:09)
[2017-11-03] MEDS: BUDESONIDE/FORMOTEROL FUMARATE 80-4.5 MCG/PUFF 6.9 GM INHALER IH SCH ×2 (09:00→20:09)
[2017-11-03] MEDS: ARIPiprazole 15 MG TABLET PO SCH (09:00)
[2017-11-03 09:35] LABS: BASOPHILS % (AUTO) 0.5 % (0.0-2.0); EOSINOPHILS % (AUTO) 1.4 % (1.0-6.0); HEMATOCRIT 31.2 % (41-53); HEMOGLOBIN 10.2 g/dL (13.5-17.5); LYMPHOCYTES # (AUTO) 0.7 K/uL (1.0-4.8); LYMPHOCYTES % (AUTO) 12.1 % (22.0-44.0); MEAN CORPUSCULAR HEMOGLOBIN 30.3 pg (26.0-34.0); MEAN CORPUSCULAR HGB CONC 32.6 G/dL (31.0-37.0); MEAN CORPUSCULAR VOLUME 93 fL (80-100); MONOCYTES # (AUTO) 0.5 K/uL (0.1-1.0); MONOCYTES % (AUTO) 7.7 % (2.0-9.0); NEUTROPHILS # (AUTO) 4.6 K/uL (1.8-7.7); NEUTROPHILS % (AUTO) 78.3 % (40.0-70.0); PLATELET COUNT (AUTO) 154 K/uL (150-450); RED BLOOD CELL COUNT(AUTO) 3.36 MIL/uL (4.50-5.90); RED CELL DISTRIBUTION WIDTH 20.3 % (11.5-14.5)
[2017-11-03] MEDS: ONDANSETRON HCL 4 MG/2 ML VIAL IVP PRN (10:16)
[2017-11-03 11:25] VITALS: BP 103/52
[2017-11-03] MEDS: DEXTROSE 5%-0.45% SODIUM CHL 1,000 ML IV SCH (13:09)
[2017-11-03] MEDS: ALPRAZolam 0.25 MG TABLET PO PRN (15:19)
[2017-11-03 15:38] VITALS: BP 121/60
[2017-11-03] MEDS: DiphenhydrAMINE HCL 50 MG/ML VIAL IVP PRN (15:54)
[2017-11-03 19:29] VITALS: BP 100/59
[2017-11-03] MEDS: TraZODone HCL 50 MG TABLET PO PRN (21:37)
[2017-11-03 23:41] VITALS: BP 105/73
[2017-11-04] VITALS (7 sets, daily range): BP systolic 99–117; BP diastolic 52–72
[2017-11-04] MEDS: OxyCODONE HCL/ACETAMINOPHEN 10-325 MG TABLET PO PRN ×6 (02:05→21:18)
[2017-11-04] MEDS: PIPERACILLIN SODIUM/TAZOBACTAM 2.25 GM in DEXTROSE 5%-WATER 50 ML IV SCH ×2 (04:53→13:56)
[2017-11-04] MEDS: LINACLOTIDE 145 MCG CAPSULE PO SCH (09:00)
[2017-11-04] MEDS: HEPARIN SODIUM,PORCINE 5,000 UNITS/ML VIAL SQ SCH ×2 (09:08→20:55)
[2017-11-04] MEDS: CALCIUM ACETATE 667 MG CAPSULE PO SCH ×3 (09:09→17:26)
[2017-11-04] MEDS: ASPIRIN 81 MG CHEWABLE TABLET PO SCH (09:10)
[2017-11-04] MEDS: ARIPiprazole 15 MG TABLET PO SCH (09:10)
[2017-11-04] MEDS: SEVELAMER CARBONATE 800 MG TABLET PO SCH ×3 (09:10→17:26)
[2017-11-04] MEDS: VITAMIN B COMP/VIT C/FOLIC ACID CAPSULE PO SCH (09:11)
[2017-11-04] MEDS: CALCITRIOL 0.25 MCG CAPSULE PO SCH (09:11)
[2017-11-04] MEDS: GABAPENTIN 300 MG CAPSULE PO SCH ×4 (09:11→20:40)
[2017-11-04] MEDS: BUDESONIDE/FORMOTEROL FUMARATE 80-4.5 MCG/PUFF 6.9 GM INHALER IH SCH ×2 (09:12→20:40)
[2017-11-04] MEDS: NICOTINE 21 MG/24 HOUR PATCH TD SCH (09:12)
[2017-11-04] MEDS: TIOTROPIUM BROMIDE 18 MCG/INH HANDIHALER [5] IH SCH (09:13)
[2017-11-04] MEDS: ONDANSETRON HCL 4 MG/2 ML VIAL IVP PRN ×2 (10:12→17:27)
[2017-11-04] MEDS ORDERED: SODIUM CHLORIDE 0.9% 2,000 ML IV ONE (10:23)
[2017-11-04] MEDS: DEXTROSE 5%-0.45% SODIUM CHL 1,000 ML IV SCH (10:54)
[2017-11-04] MEDS: DOCUSATE SODIUM 250 MG CAPSULE PO SCH ×2 (11:25→20:55)
[2017-11-04] MEDS: AmLODIPine BESYLATE 10 MG TABLET PO SCH (13:43)
[2017-11-04] MEDS: CARVEDILOL 12.5 MG TABLET PO SCH ×3 (13:43→20:40)
[2017-11-04] MEDS ORDERED: SODIUM CHLORIDE 0.9% 250 ML IV ONE (13:52)
[2017-11-04] MEDS ORDERED: LIDOCAINE/PF 1% 2 ML VIAL INJ ONE (17:21)
[2017-11-04] MEDS ORDERED: MANNITOL 25%-12.5 GM/50 ML VIAL IVP ONE (17:21)
[2017-11-04] MEDS: MetroNIDAZOLE 500 MG TABLET PO SCH ×2 (17:27→23:31)
[2017-11-04] MEDS ORDERED: VANCOMYCIN HCL 500 MG in DEXTROSE 5%-WATER 100 ML IV ONE (20:00)
[2017-11-04] MEDS: TraZODone HCL 50 MG TABLET PO PRN (21:54)
[2017-11-04] MEDS: DiphenhydrAMINE HCL 50 MG/ML VIAL IVP PRN (21:54)
[2017-11-04] MEDS: CefTAZidime PENTAHYDRATE 1 GM in DEXTROSE 5%-WATER 50 ML IV SCH (21:55)
[2017-11-05] MEDS: ONDANSETRON HCL 4 MG/2 ML VIAL IVP PRN (01:39)
[2017-11-05] MEDS: OxyCODONE HCL/ACETAMINOPHEN 10-325 MG TABLET PO PRN ×3 (03:28→20:57)
[2017-11-05 05:55] VITALS: BP 120/76
[2017-11-05 06:12] LABS: BASOPHILS % (AUTO) 0.2 % (0.0-2.0); EOSINOPHILS % (AUTO) 0.5 % (1.0-6.0); HEMATOCRIT 28.7 % (41-53); HEMOGLOBIN 9.8 g/dL (13.5-17.5); LYMPHOCYTES # (AUTO) 0.6 K/uL (1.0-4.8); LYMPHOCYTES % (AUTO) 6.5 % (22.0-44.0); MEAN CORPUSCULAR HGB CONC 34.1 G/dL (31.0-37.0); MEAN CORPUSCULAR VOLUME 91 fL (80-100); MONOCYTES # (AUTO) 0.6 K/uL (0.1-1.0); NEUTROPHILS # (AUTO) 8.4 K/uL (1.8-7.7); PLATELET COUNT (AUTO) 155 K/uL (150-450); RED BLOOD CELL COUNT(AUTO) 3.16 MIL/uL (4.50-5.90); RED CELL DISTRIBUTION WIDTH 19.7 % (11.5-14.5)
[2017-11-05 06:22] LABS: NEUTROPHILS % (AUTO) 86.8 % (40.0-70.0)
[2017-11-05 06:30] LABS: CALCIUM, TOTAL 8.6 mg/dL (8.8-10.5); CREATININE 7.37 mg/dL (0.60-1.30); MAGNESIUM 1.4 mg/dL (1.80-2.40); PHOSPHORUS 4.3 mg/dL (2.5-4.9); POTASSIUM 3.7 mmol/L (3.5-5.1)
[2017-11-05] MEDS ORDERED: PANTOPRAZOLE SODIUM 80 MG in SODIUM CHLORIDE 0.9% 100 ML IV SCH (07:30)
[2017-11-05 07:46] VITALS: BP 113/73
[2017-11-05] MEDS: CALCIUM ACETATE 667 MG CAPSULE PO SCH ×3 (08:00→18:00)
[2017-11-05] MEDS: SEVELAMER CARBONATE 800 MG TABLET PO SCH ×3 (08:00→18:00)
[2017-11-05] MEDS: MetroNIDAZOLE 500 MG TABLET PO SCH ×3 (08:00→23:00)
[2017-11-05] MEDS: LINACLOTIDE 145 MCG CAPSULE PO SCH (08:38)
[2017-11-05] MEDS: CARVEDILOL 12.5 MG TABLET PO SCH ×2 (08:38→20:57)
[2017-11-05] MEDS: ARIPiprazole 15 MG TABLET PO SCH (08:38)
[2017-11-05] MEDS: DOCUSATE SODIUM 250 MG CAPSULE PO SCH ×2 (08:38→21:00)
[2017-11-05] MEDS: VITAMIN B COMP/VIT C/FOLIC ACID CAPSULE PO SCH (08:39)
[2017-11-05] MEDS: CALCITRIOL 0.25 MCG CAPSULE PO SCH (08:39)
[2017-11-05] MEDS: GABAPENTIN 300 MG CAPSULE PO SCH (08:39)
[2017-11-05] MEDS: AmLODIPine BESYLATE 10 MG TABLET PO SCH (08:39)
[2017-11-05] MEDS: NICOTINE 21 MG/24 HOUR PATCH TD SCH (09:49)
[2017-11-05] MEDS: TIOTROPIUM BROMIDE 18 MCG/INH HANDIHALER [5] IH SCH (09:49)
[2017-11-05] MEDS ORDERED: MAGNESIUM SULFATE 2 GM in DEXTROSE 5%-WATER 50 ML IV ONE (10:00)
[2017-11-05] MEDS: BUDESONIDE/FORMOTEROL FUMARATE 80-4.5 MCG/PUFF 6.9 GM INHALER IH SCH ×2 (10:07→21:02)
[2017-11-05] MEDS ORDERED: SODIUM CHLORIDE 0.9% 1,000 ML IV ONE ×2 (10:30→10:38)
[2017-11-05 11:29] VITALS: BP 106/63
[2017-11-05] MEDS: OMEPRAZOLE 20 MG CAPSULE PO SCH ×2 (11:48→14:51)
[2017-11-05 12:22] LABS: HEMATOCRIT 29.8 % (41-53); HEMOGLOBIN 9.7 g/dL (13.5-17.5)
[2017-11-05 15:37] VITALS: BP 118/69
[2017-11-05] MEDS: CefTAZidime PENTAHYDRATE 1 GM in DEXTROSE 5%-WATER 50 ML IV SCH (21:02)
[2017-11-05] MEDS: DiphenhydrAMINE HCL 50 MG/ML VIAL IVP PRN (21:55)
[2017-11-05] MEDS: ALPRAZolam 0.25 MG TABLET PO PRN (21:55)
[2017-11-06 05:21] VITALS: BP 123/60
[2017-11-06 06:29] LABS: BASOPHILS % (AUTO) 0.6 % (0.0-2.0); HEMATOCRIT 24.1 % (41-53); HEMOGLOBIN 8.1 g/dL (13.5-17.5); LYMPHOCYTES # (AUTO) 0.8 K/uL (1.0-4.8); LYMPHOCYTES % (AUTO) 8.9 % (22.0-44.0); MEAN CORPUSCULAR HEMOGLOBIN 30.8 pg (26.0-34.0); MEAN CORPUSCULAR HGB CONC 33.8 G/dL (31.0-37.0); MEAN CORPUSCULAR VOLUME 91 fL (80-100); MONOCYTES # (AUTO) 0.6 K/uL (0.1-1.0); MONOCYTES % (AUTO) 6.2 % (2.0-9.0); NEUTROPHILS # (AUTO) 7.3 K/uL (1.8-7.7); NEUTROPHILS % (AUTO) 82.3 % (40.0-70.0); PLATELET COUNT (AUTO) 149 K/uL (150-450); RED BLOOD CELL COUNT(AUTO) 2.64 MIL/uL (4.50-5.90); RED CELL DISTRIBUTION WIDTH 19.5 % (11.5-14.5)
[2017-11-06 06:44] LABS: CALCIUM, TOTAL 8.3 mg/dL (8.8-10.5); CREATININE 8.64 mg/dL (0.60-1.30); PHOSPHORUS 4.8 mg/dL (2.5-4.9)
[2017-11-06 07:14] VITALS: BP 106/73
[2017-11-06] MEDS: MetroNIDAZOLE 500 MG TABLET PO SCH ×3 (08:00→23:59)
[2017-11-06] MEDS: CALCIUM ACETATE 667 MG CAPSULE PO SCH ×3 (08:00→18:58)
[2017-11-06] MEDS: SEVELAMER CARBONATE 800 MG TABLET PO SCH ×3 (08:00→18:00)
[2017-11-06] MEDS: DOCUSATE SODIUM 250 MG CAPSULE PO SCH ×2 (09:00→20:36)
[2017-11-06] MEDS: LINACLOTIDE 145 MCG CAPSULE PO SCH (09:00)
[2017-11-06] MEDS: OMEPRAZOLE 20 MG CAPSULE PO SCH (09:00)
[2017-11-06] MEDS: EPOETIN ALFA 10,000 UNITS/ML VIAL SQ SCH ×2 (09:00→15:05)
[2017-11-06] MEDS: AmLODIPine BESYLATE 10 MG TABLET PO SCH ×2 (09:00→14:59)
[2017-11-06] MEDS: ARIPiprazole 15 MG TABLET PO SCH (09:00)
[2017-11-06] MEDS: TIOTROPIUM BROMIDE 18 MCG/INH HANDIHALER [5] IH SCH (09:41)
[2017-11-06] MEDS: BUDESONIDE/FORMOTEROL FUMARATE 80-4.5 MCG/PUFF 6.9 GM INHALER IH SCH ×2 (09:41→20:39)
[2017-11-06] MEDS ORDERED: SODIUM CHLORIDE 0.9% 1,000 ML IV ONE ×2 (11:00→11:31)
[2017-11-06] MEDS ORDERED: FentaNYL CITRATE-PF 100 MCG/2 ML VIAL ONE (11:03)
[2017-11-06] MEDS ORDERED: MIDAZOLAM HCL 5 MG/ML VIAL ONE (11:03)
[2017-11-06] MEDS ORDERED: *CLINICAL-PERIPHERAL PARENTERAL NUTRITION DOSING CLINICAL ONE (12:15)
[2017-11-06] MEDS: CALCITRIOL 0.25 MCG CAPSULE PO SCH (14:59)
[2017-11-06] MEDS: CARVEDILOL 12.5 MG TABLET PO SCH ×2 (15:00→20:36)
[2017-11-06] MEDS: NICOTINE 21 MG/24 HOUR PATCH TD SCH (15:00)
[2017-11-06] MEDS: VITAMIN B COMP/VIT C/FOLIC ACID CAPSULE PO SCH (15:03)
[2017-11-06] MEDS: OxyCODONE HCL/ACETAMINOPHEN 10-325 MG TABLET PO PRN ×3 (15:34→22:40)
[2017-11-06 16:15] VITALS: BP 127/68
[2017-11-06 18:52] LABS: HEMATOCRIT 28.7 % (41-53); HEMOGLOBIN 9.3 g/dL (13.5-17.5)
[2017-11-06 19:47] VITALS: BP 125/69
[2017-11-06] MEDS: ZOLPIDEM TARTRATE 5 MG TABLET PO PRN (20:36)
[2017-11-06] MEDS: CefTAZidime PENTAHYDRATE 1 GM in DEXTROSE 5%-WATER 50 ML IV SCH (20:37)
[2017-11-06] MEDS ORDERED: [UNRECOGNIZED DRUG - REMARK] IV SCH ×5 (22:00)
[2017-11-06 23:26] VITALS: BP 109/67
[2017-11-07] VITALS (11 sets, daily range): BP systolic 82–135; BP diastolic 55–94
[2017-11-07 00:50] LABS: HEMATOCRIT 23.3 % (41-53); HEMOGLOBIN 7.6 g/dL (13.5-17.5)
[2017-11-07] MEDS: ALPRAZolam 0.25 MG TABLET PO PRN ×3 (05:46→20:42)
[2017-11-07 06:34] LABS: CALCIUM, TOTAL 8.2 mg/dL (8.8-10.5); CREATININE 9.83 mg/dL (0.60-1.30); POTASSIUM 4.2 mmol/L (3.5-5.1); VANCOMYCIN,RANDOM 18.2 mcg/mL (25.0-50.0)
[2017-11-07] MEDS: CARVEDILOL 12.5 MG TABLET PO SCH ×2 (09:00→20:39)
[2017-11-07] MEDS: AmLODIPine BESYLATE 10 MG TABLET PO SCH (09:00)
[2017-11-07] MEDS: OMEPRAZOLE 20 MG CAPSULE PO SCH (09:14)
[2017-11-07] MEDS: TIOTROPIUM BROMIDE 18 MCG/INH HANDIHALER [5] IH SCH (09:15)
[2017-11-07] MEDS: BUDESONIDE/FORMOTEROL FUMARATE 80-4.5 MCG/PUFF 6.9 GM INHALER IH SCH ×2 (09:15→20:39)
[2017-11-07] MEDS: ARIPiprazole 15 MG TABLET PO SCH (09:16)
[2017-11-07] MEDS: CALCITRIOL 0.25 MCG CAPSULE PO SCH (09:17)
[2017-11-07] MEDS: MetroNIDAZOLE 500 MG TABLET PO SCH ×3 (09:17→23:54)
[2017-11-07] MEDS: NICOTINE 21 MG/24 HOUR PATCH TD SCH (09:18)
[2017-11-07] MEDS: VITAMIN B COMP/VIT C/FOLIC ACID CAPSULE PO SCH (09:46)
[2017-11-07] MEDS: DOCUSATE SODIUM 250 MG CAPSULE PO SCH ×2 (09:46→21:00)
[2017-11-07] MEDS: LINACLOTIDE 145 MCG CAPSULE PO SCH (09:46)
[2017-11-07] MEDS: OxyCODONE HCL/ACETAMINOPHEN 10-325 MG TABLET PO PRN ×2 (09:46→16:00)
[2017-11-07] MEDS ORDERED: VANCOMYCIN HCL 1 GM/D5% WATER 200 ML IV ONE (11:00)
[2017-11-07] MEDS ORDERED: SODIUM CHLORIDE 0.9% 250 ML IV ONE ×2 (12:41→20:19)
[2017-11-07] MEDS: DOCUSATE SODIUM 100 MG CAPSULE PO PRN (20:39)
[2017-11-07] MEDS: ZOLPIDEM TARTRATE 5 MG TABLET PO PRN (20:39)
[2017-11-07] MEDS: CefTAZidime PENTAHYDRATE 1 GM in DEXTROSE 5%-WATER 50 ML IV SCH (20:39)
[2017-11-07] MEDS ORDERED: [UNRECOGNIZED DRUG - REMARK] IV SCH ×5 (22:00)
[2017-11-08] MEDS: OxyCODONE HCL/ACETAMINOPHEN 10-325 MG TABLET PO PRN ×2 (02:57→07:38)
[2017-11-08 03:02] VITALS: BP 136/68
[2017-11-08 06:11] LABS: BASOPHILS % (AUTO) 0.4 % (0.0-2.0); EOSINOPHILS % (AUTO) 1.3 % (1.0-6.0); HEMATOCRIT 25.5 % (41-53); HEMOGLOBIN 8.6 g/dL (13.5-17.5); LYMPHOCYTES # (AUTO) 0.5 K/uL (1.0-4.8); LYMPHOCYTES % (AUTO) 7.2 % (22.0-44.0); MEAN CORPUSCULAR HEMOGLOBIN 30.2 pg (26.0-34.0); MEAN CORPUSCULAR HGB CONC 33.6 G/dL (31.0-37.0); MEAN CORPUSCULAR VOLUME 90 fL (80-100); MONOCYTES # (AUTO) 0.5 K/uL (0.1-1.0); MONOCYTES % (AUTO) 6.6 % (2.0-9.0); NEUTROPHILS # (AUTO) 6.2 K/uL (1.8-7.7); NEUTROPHILS % (AUTO) 84.5 % (40.0-70.0); PLATELET COUNT (AUTO) 131 K/uL (150-450); RED BLOOD CELL COUNT(AUTO) 2.84 MIL/uL (4.50-5.90); RED CELL DISTRIBUTION WIDTH 18.7 % (11.5-14.5)
[2017-11-08 06:33] LABS: CALCIUM, TOTAL 8.1 mg/dL (8.8-10.5); CREATININE 5.23 mg/dL (0.60-1.30); MAGNESIUM 1.4 mg/dL (1.80-2.40); PHOSPHORUS 3.4 mg/dL (2.5-4.9); POTASSIUM 3.6 mmol/L (3.5-5.1)
[2017-11-08] MEDS: CARVEDILOL 12.5 MG TABLET PO SCH (07:41)
[2017-11-08] MEDS: NICOTINE 21 MG/24 HOUR PATCH TD SCH (07:41)
[2017-11-08] MEDS: DiphenhydrAMINE HCL 50 MG/ML VIAL IVP PRN (07:48)
[2017-11-08] MEDS: DOCUSATE SODIUM 250 MG CAPSULE PO SCH (07:54)
[2017-11-08] MEDS: TIOTROPIUM BROMIDE 18 MCG/INH HANDIHALER [5] IH SCH (07:54)
[2017-11-08] MEDS: ARIPiprazole 15 MG TABLET PO SCH (07:54)
[2017-11-08] MEDS: MetroNIDAZOLE 500 MG TABLET PO SCH (07:54)
[2017-11-08] MEDS: BUDESONIDE/FORMOTEROL FUMARATE 80-4.5 MCG/PUFF 6.9 GM INHALER IH SCH (07:54)
[2017-11-08] MEDS: LINACLOTIDE 145 MCG CAPSULE PO SCH (07:54)
[2017-11-08] MEDS: CALCITRIOL 0.25 MCG CAPSULE PO SCH (07:55)
[2017-11-08] MEDS: OMEPRAZOLE 20 MG CAPSULE PO SCH (07:55)
[2017-11-08] MEDS: VITAMIN B COMP/VIT C/FOLIC ACID CAPSULE PO SCH (07:55)
[2017-11-08] MEDS: AmLODIPine BESYLATE 10 MG TABLET PO SCH (07:55)
[2017-11-08 08:00] VITALS: BP 155/74
[2017-11-08] MEDS ORDERED: MAGNESIUM SULFATE 0.5 GM in DEXTROSE 5%-WATER 50 ML IV ONE (08:15)
[2017-11-08] MEDS ORDERED: AMLO-511 PO (10:35)
[2017-11-08] MEDS ORDERED: DIPH25 PO (10:37)
[2017-11-08] MEDS ORDERED: [UNRECOGNIZED DRUG - CODE] IV (10:39)
[2017-11-08] MEDS ORDERED: METR500 PO (10:41)
[2017-11-08] MEDS ORDERED: LINA145C PO (10:41)
[2017-11-08] MEDS ORDERED: OMEP20 PO (10:42)
[2017-11-08] MEDS ORDERED: FOLI1CAP2 PO (10:43)
[2017-11-08] MEDS ORDERED: AUD NEB (10:45)
[2017-11-08] MEDS ORDERED: ACET-784 PO (10:45)
[2017-11-08] MEDS ORDERED: ALPR0.255 PO (10:47)
[2017-11-08] MEDS ORDERED: BISA10S PR (10:48)
[2017-11-08] MEDS ORDERED: IPRNEB IH (10:49)
[2017-11-08] MEDS ORDERED: LACT30L PO (10:50)
[2017-11-08] MEDS ORDERED: MOM30 PO (10:51)
[2017-11-08] MEDS ORDERED: ONDA4 PO (10:52)
[2017-11-08] MEDS ORDERED: PERCT10 PO (10:54)
[2017-11-08] MEDS ORDERED: VANC1IV IV (10:58)
[2017-11-08] MEDS ORDERED: ZOLP5 PO (10:58)
[2017-11-08 11:36] VITALS: BP 146/68
[2017-11-08] MEDS ORDERED: LIDOCAINE/PF 1% 2 ML VIAL IM ONE (13:39)
[2017-11-08] MEDS ORDERED: DiphenhydrAMINE HCL 50 MG/ML VIAL IVP ONE (13:39)
== END 2017-11-08 13:40 | DRG 377 ==
LOC: EMS 07:25 → 5N 11:52 → 5S 13:49
PROVIDERS: ADMIT Internal Medicine Geriatric Medicine; ATTEND Internal Medicine Geriatric Medicine
PROC: 5A1D70Z Performance of Urinary Filtration, Intermittent, Less than 6 Hours Per Day (ICD-10-PCS; 2017-10-29)
PROC: 5A1D70Z Performance of Urinary Filtration, Intermittent, Less than 6 Hours Per Day (ICD-10-PCS; 2017-10-30)
PROC: 5A1D70Z Performance of Urinary Filtration, Intermittent, Less than 6 Hours Per Day (ICD-10-PCS; 2017-11-02)
PROC: 5A1D70Z Performance of Urinary Filtration, Intermittent, Less than 6 Hours Per Day (ICD-10-PCS; 2017-11-04)
PROC: 0DJ08ZZ Inspection of Upper Intestinal Tract, Via Natural or Artificial Opening Endoscopic (ICD-10-PCS; principal; 2017-11-06 12:00)
PROC: 30233N1 Transfusion of Nonautologous Red Blood Cells into Peripheral Vein, Percutaneous Approach (ICD-10-PCS; 2017-11-07)
PROC: 5A1D70Z Performance of Urinary Filtration, Intermittent, Less than 6 Hours Per Day (ICD-10-PCS; 2017-11-07)
DX: K29.71 Gastritis, unspecified, with bleeding (principal); J18.9 Pneumonia, unspecified organism; N18.6 End stage renal disease; G93.41 Metabolic encephalopathy; E43 Unspecified severe protein-calorie malnutrition; K56.609 Unspecified intestinal obstruction, unspecified as to partial versus complete obstruction; I13.2 Hypertensive heart and chronic kidney disease with heart failure and with stage 5 chronic kidney disease, or end stage renal disease; F11.20 Opioid dependence, uncomplicated; E11.52 Type 2 diabetes mellitus with diabetic peripheral angiopathy with gangrene; J44.0 Chronic obstructive pulmonary disease with (acute) lower respiratory infection; J44.1 Chronic obstructive pulmonary disease with (acute) exacerbation; D62 Acute posthemorrhagic anemia; Z68.1 Body mass index [BMI] 19.9 or less, adult; E87.1 Hypo-osmolality and hyponatremia; E87.5 Hyperkalemia; D63.1 Anemia in chronic kidney disease; B19.20 Unspecified viral hepatitis C without hepatic coma; D69.6 Thrombocytopenia, unspecified; E11.22 Type 2 diabetes mellitus with diabetic chronic kidney disease; E78.5 Hyperlipidemia, unspecified; F12.90 Cannabis use, unspecified, uncomplicated; F25.9 Schizoaffective disorder, unspecified; I50.9 Heart failure, unspecified; K20.9 Esophagitis, unspecified; E21.3 Hyperparathyroidism, unspecified; G89.29 Other chronic pain; F17.210 Nicotine dependence, cigarettes, uncomplicated; Z82.3 Family history of stroke; Z82.49 Family history of ischemic heart disease and other diseases of the circulatory system; Z82.5 Family history of asthma and other chronic lower respiratory diseases; Z99.2 Dependence on renal dialysis; Z89.612 Acquired absence of left leg above knee; Z91.19 Patient's noncompliance with other medical treatment and regimen; Z91.15 Patient's noncompliance with renal dialysis; Z90.49 Acquired absence of other specified parts of digestive tract; Z88.8 Allergy status to other drugs, medicaments and biological substances; Z91.012 Allergy to eggs; Z91.013 Allergy to seafood; Z79.899 Other long term (current) drug therapy
CPT/HCPCS: 71250; 74019; 83605; 83735; 84100; 84132; 84145; 85014; 85018; 86706; 86850; 86900; 86901; 86920; 87040; 87070; 87081; 87340; 90935; 93005; 94640; 94644; 96365; 96366; 96367; 96375; 96376; 99291; C9113; J0610; J0713; J0885; J1200; J1644; J1815; J2150; J2185; J2250; J2270; J2405; J2543; J2930; J3010; J3370; J3475; J3490; J7030; J7050; J7060; J7070; J7131; P9016

== ENCOUNTER 2017-11-15 09:21 | Inpatient (IN) | payer MEDICARE, OTHER ==
[~2017-11-15] VITALS: Ht 182.9 cm; Wt 71.3 kg
[~2017-11-15 09:21] MED LIST changes: +ACET-784 PO; +ALPR0.255 PO; -ALPR1TAB7 PO; +AMLO-511 PO; -AMLO-512 PO; +ARIP15TA7 PO; -ASPI81 PO; +BISA10S PR; -CARI350T PO; -FOLI0.8T22 PO; +FOLI1CAP2 PO; -GABA-531 PO; +LACT30L PO; +METR500 PO; +NICO-650 MISC; +ONDA4 PO; -OXYC40 PO; -PHOSLOC PO; +VANC1IV IV; +[UNRECOGNIZED DRUG - CODE] IV
[2017-11-15 10:00] VITALS: BP 148/78
[2017-11-15 10:08] VITALS: BP 148/78
[2017-11-15 11:20] VITALS: BP 160/59
[2017-11-15] MEDS ORDERED: OxyCODONE HCL/ACETAMINOPHEN 10-325 MG TABLET PO PRN (11:30)
[2017-11-15] MEDS ORDERED: DiphenhydrAMINE HCL 50 MG/ML VIAL IVP ONE (12:00)
[2017-11-15] MEDS ORDERED: LIDOCAINE/PF 1% 2 ML VIAL INJ ONE (12:00)
[2017-11-15 15:30] VITALS: BP 162/76
[2017-11-15] MEDS ORDERED: SODIUM CHLORIDE 0.9% 2,000 ML IV ONE (16:16)
[2017-11-15] MEDS: DiphenhydrAMINE HCL 25 MG CAPSULE PO PRN (16:21)
[2017-11-15] MEDS: ALPRAZolam 0.25 MG TABLET PO PRN (16:21)
[2017-11-15] MEDS ORDERED: CARV12 PO (16:54)
[2017-11-15 17:04] LABS: GLUCOMETER DEV NAME(LOC) 6N 1E; GLUCOSE,POINT OF CARE 66 MG/DL (70-110)
[2017-11-15] MEDS ORDERED: IPRATROPIUM BROMIDE 0.5 MG/2.5 ML NEB SOLUTION NEB PRN (17:15)
[2017-11-15] MEDS ORDERED: ONDANSETRON HCL 4 MG TABLET PO PRN (17:15)
[2017-11-15] MEDS ORDERED: MAGNESIUM HYDROXIDE SUSPENSION 30 ML UDCUP PO PRN (17:15)
[2017-11-15] MEDS ORDERED: ALBUTEROL SULFATE 2.5 MG/0.5 ML NEB SOLUTION NEB PRN (17:15)
[2017-11-15] MEDS ORDERED: BISACODYL 10 MG RECTAL RECTAL SUPPOSITORY PR PRN (17:15)
[2017-11-15] MEDS ORDERED: LACTULOSE 20 GM/30 ML SOLUTION UDCUP PO PRN (17:15)
[2017-11-15] MEDS: OxyCODONE HCL/ACETAMINOPHEN 5-325 MG TABLET PO PRN (17:40)
[2017-11-15 17:51] LABS: BASOPHILS % (AUTO) 0.6 % (0.0-2.0); EOSINOPHILS % (AUTO) 1.6 % (1.0-6.0); HEMATOCRIT 21.2 % (41-53); HEMOGLOBIN 7.1 g/dL (13.5-17.5); LYMPHOCYTES # (AUTO) 0.9 K/uL (1.0-4.8); LYMPHOCYTES % (AUTO) 15.2 % (22.0-44.0); MEAN CORPUSCULAR HEMOGLOBIN 30.4 pg (26.0-34.0); MEAN CORPUSCULAR HGB CONC 33.3 G/dL (31.0-37.0); MEAN CORPUSCULAR VOLUME 91 fL (80-100); MONOCYTES # (AUTO) 0.3 K/uL (0.1-1.0); MONOCYTES % (AUTO) 5.9 % (2.0-9.0); NEUTROPHILS # (AUTO) 4.5 K/uL (1.8-7.7); NEUTROPHILS % (AUTO) 76.7 % (40.0-70.0); PLATELET COUNT (AUTO) 125 K/uL (150-450); RED BLOOD CELL COUNT(AUTO) 2.33 MIL/uL (4.50-5.90); RED CELL DISTRIBUTION WIDTH 18.2 % (11.5-14.5)
[2017-11-15 18:00] LABS: GLUCOMETER DEV NAME(LOC) 6N 1E; GLUCOSE,POINT OF CARE 92 MG/DL (70-110)
[2017-11-15 18:02] LABS: INR 1.2 (0.9-1.1); PROTHROMBIN TIME 12.4 SEC (9.4-11.6)
[2017-11-15 18:04] LABS: ALBUMIN 1.3 g/dL (3.4-5.0); BILIRUBIN,TOTAL 0.3 mg/dL (0.1-1.0); CALCIUM, TOTAL 7.4 mg/dL (8.8-10.5); CREATININE 7.11 mg/dL (0.60-1.30); POTASSIUM 4.7 mmol/L (3.5-5.1); TOTAL PROTEIN, SERUM 5.1 g/dL (6.4-8.2)
[2017-11-15 20:13] VITALS: BP 139/75
[2017-11-15] MEDS: BUDESONIDE/FORMOTEROL FUMARATE 80-4.5 MCG/PUFF 6.9 GM INHALER IH SCH (21:25)
[2017-11-15] MEDS: DOCUSATE SODIUM 250 MG CAPSULE PO SCH (21:25)
[2017-11-15] MEDS: OMEPRAZOLE 20 MG CAPSULE PO SCH (21:25)
[2017-11-15] MEDS: CARVEDILOL 6.25 MG TABLET PO SCH (21:25)
[2017-11-15] MEDS: TraZODone HCL 50 MG TABLET PO SCH (21:25)
[2017-11-15] MEDS: HEPARIN SODIUM,PORCINE 5,000 UNITS/ML VIAL SQ SCH (21:25)
[2017-11-15 22:15] LABS: GLUCOMETER DEV NAME(LOC) 6N 2D; GLUCOSE,POINT OF CARE 82 MG/DL (70-110)
[2017-11-16 00:05] VITALS: BP 150/79
[2017-11-16] MEDS: BENZOCAINE/MENTHOL LOZENGE PO PRN ×2 (00:38→12:45)
[2017-11-16] MEDS: OxyCODONE HCL/ACETAMINOPHEN 10-325 MG TABLET PO PRN ×3 (04:03→18:19)
[2017-11-16 05:17] VITALS: BP 134/69
[2017-11-16] MEDS: LINACLOTIDE 145 MCG CAPSULE PO SCH (06:30)
[2017-11-16] MEDS ORDERED: SODIUM CL IRRIG SOLN BAG 3,000 ML IRRIG ONE (06:38)
[2017-11-16 06:49] LABS: GLUCOMETER DEV NAME(LOC) 6N 1E; GLUCOSE,POINT OF CARE 82 MG/DL (70-110)
[2017-11-16 07:06] LABS: BASOPHILS % (AUTO) 0.8 % (0.0-2.0); EOSINOPHILS % (AUTO) 1.1 % (1.0-6.0); HEMOGLOBIN 7.8 g/dL (13.5-17.5); LYMPHOCYTES % (AUTO) 15.8 % (22.0-44.0); MEAN CORPUSCULAR HEMOGLOBIN 30.5 pg (26.0-34.0); MEAN CORPUSCULAR HGB CONC 33.8 G/dL (31.0-37.0); MEAN CORPUSCULAR VOLUME 90 fL (80-100); MONOCYTES # (AUTO) 0.4 K/uL (0.1-1.0); MONOCYTES % (AUTO) 6.5 % (2.0-9.0); NEUTROPHILS % (AUTO) 75.8 % (40.0-70.0); PLATELET COUNT (AUTO) 130 K/uL (150-450); RED BLOOD CELL COUNT(AUTO) 2.55 MIL/uL (4.50-5.90); RED CELL DISTRIBUTION WIDTH 18.2 % (11.5-14.5)
[2017-11-16] MEDS ORDERED: SODIUM CHLORIDE 0.9% 1,000 ML IV ONE ×2 (07:14→07:30)
[2017-11-16] MEDS ORDERED: TRANEXAMIC ACID 1,000 MG in DEXTROSE 5%-WATER 50 ML IV ONE (07:15)
[2017-11-16 07:27] LABS: CALCIUM, TOTAL 8.2 mg/dL (8.8-10.5); CREATININE 6.19 mg/dL (0.60-1.30); MAGNESIUM 1.4 mg/dL (1.80-2.40)
[2017-11-16] MEDS ORDERED: MEPERIDINE HCL/PF 25 MG/0.5 ML AMP IVP PRN (07:30)
[2017-11-16] MEDS ORDERED: HYDROmorphone 2 MG/ML SYRINGE IVP PRN (07:30)
[2017-11-16] MEDS ORDERED: OXYGEN THERAPY IH SCH (08:00)
[2017-11-16] MEDS ORDERED: ACETAMINOPHEN 1000 MG/ISO-OSM 100 ML IV ONE (08:42)
[2017-11-16] MEDS: HEPARIN SODIUM,PORCINE 5,000 UNITS/ML VIAL SQ SCH ×2 (09:00→21:05)
[2017-11-16] MEDS ORDERED: EPOETIN ALFA 10,000 UNITS/ML VIAL SQ SCH (09:00)
[2017-11-16 09:50] LABS: BAND NEUTROPHILS % (MANUAL) 0 % (0-5)
[2017-11-16 09:53] LABS: HEMATOCRIT 21.7 % (41-53); HEMOGLOBIN 7.2 g/dL (13.5-17.5); MEAN CORPUSCULAR HEMOGLOBIN 30.2 pg (26.0-34.0); MEAN CORPUSCULAR HGB CONC 33.4 G/dL (31.0-37.0); MEAN CORPUSCULAR VOLUME 91 fL (80-100); PLATELET COUNT (AUTO) 195 K/uL (150-450); RED BLOOD CELL COUNT(AUTO) 2.39 MIL/uL (4.50-5.90); RED CELL DISTRIBUTION WIDTH 18.3 % (11.5-14.5)
[2017-11-16] MEDS ORDERED: MEPERIDINE HCL/PF 25 MG/0.5 ML AMP ONE (10:05)
[2017-11-16] MEDS: FentaNYL CITRATE-PF 100 MCG/2 ML VIAL IVP PRN ×2 (10:10→10:19)
[2017-11-16] MEDS ORDERED: FentaNYL CITRATE-PF 100 MCG/2 ML VIAL ONE (10:10)
[2017-11-16] MEDS ORDERED: HYDROmorphone 2 MG/ML SYRINGE ONE (10:24)
[2017-11-16 10:27] LABS: LYMPHOCYTES % (MANUAL) 20 % (22-44); MONOCYTES % (MANUAL) 6 % (2-9); SEGMENTED NEUTROPHILS % 74 % (40-70)
[2017-11-16] MEDS ORDERED: MAGNESIUM SULFATE 3 GM in DEXTROSE 5%-WATER 100 ML IV ONE (11:00)
[2017-11-16] MEDS: CALCITRIOL 0.25 MCG CAPSULE PO SCH (11:27)
[2017-11-16] MEDS: CARVEDILOL 6.25 MG TABLET PO SCH ×2 (11:27→21:06)
[2017-11-16] MEDS: ARIPiprazole 15 MG TABLET PO SCH (11:27)
[2017-11-16 11:28] VITALS: BP 146/75
[2017-11-16] MEDS: DOCUSATE SODIUM 250 MG CAPSULE PO SCH ×2 (11:28→21:05)
[2017-11-16] MEDS: VITAMIN B COMP/VIT C/FOLIC ACID CAPSULE PO SCH (11:28)
[2017-11-16] MEDS: AmLODIPine BESYLATE 5 MG TABLET PO SCH (11:28)
[2017-11-16] MEDS: OMEPRAZOLE 20 MG CAPSULE PO SCH ×2 (11:28→21:05)
[2017-11-16] MEDS: NICOTINE 21 MG/24 HOUR PATCH TD SCH (11:29)
[2017-11-16] MEDS: BUDESONIDE/FORMOTEROL FUMARATE 80-4.5 MCG/PUFF 6.9 GM INHALER IH SCH ×2 (11:30→21:05)
[2017-11-16] MEDS: TIOTROPIUM BROMIDE 18 MCG/INH HANDIHALER [5] IH SCH (11:30)
[2017-11-16] MEDS ORDERED: MORPHINE SULFATE/PF 0.5 MG/ML 10 ML AMP IVP ONE (12:00)
[2017-11-16] MEDS ORDERED: LIDOCAINE/PF 2% 5 ML SYRINGE IVP ONE (12:00)
[2017-11-16] MEDS ORDERED: PROPOFOL 1% 20 ML VIAL IVP ONE (12:00)
[2017-11-16] MEDS ORDERED: SUCCINYLCHOLINE CHLORIDE 20 MG/ML 10 ML VIAL IVP ONE (12:00)
[2017-11-16] MEDS ORDERED: ONDANSETRON HCL 4 MG/2 ML VIAL IVP ONE (12:00)
[2017-11-16] MEDS ORDERED: DEXAMETHASONE SOD PHOS 4 MG/ML VIAL IVP ONE (12:00)
[2017-11-16] MEDS ORDERED: MIDAZOLAM HCL 2 MG/2 ML VIAL IVP ONE (12:00)
[2017-11-16] MEDS ORDERED: METOCLOPRAMIDE HCL 5 MG/ML 2 ML VIAL IVP ONE (12:00)
[2017-11-16] MEDS ORDERED: FentaNYL CITRATE-PF 100 MCG/2 ML VIAL IVP ONE (12:00)
[2017-11-16] MEDS: DiphenhydrAMINE HCL 25 MG CAPSULE PO PRN ×2 (12:45→18:19)
[2017-11-16 15:15] VITALS: BP 132/74
[2017-11-16 19:00] VITALS: BP 135/71
[2017-11-16] MEDS: TraZODone HCL 50 MG TABLET PO SCH (21:05)
[2017-11-16] MEDS: OxyCODONE HCL/ACETAMINOPHEN 5-325 MG TABLET PO PRN (21:06)
[2017-11-17 00:11] VITALS: BP 136/85
[2017-11-17] MEDS: OxyCODONE HCL/ACETAMINOPHEN 10-325 MG TABLET PO PRN ×3 (01:13→13:41)
[2017-11-17 04:00] VITALS: BP 139/75
[2017-11-17] MEDS: BENZOCAINE/MENTHOL LOZENGE PO PRN ×3 (05:19→18:12)
[2017-11-17] MEDS: LINACLOTIDE 145 MCG CAPSULE PO SCH ×2 (06:30→07:46)
[2017-11-17] MEDS: DiphenhydrAMINE HCL 25 MG CAPSULE PO PRN (07:44)
[2017-11-17] MEDS: TIOTROPIUM BROMIDE 18 MCG/INH HANDIHALER [5] IH SCH (07:46)
[2017-11-17] MEDS: ARIPiprazole 15 MG TABLET PO SCH ×2 (07:46→09:00)
[2017-11-17] MEDS: BUDESONIDE/FORMOTEROL FUMARATE 80-4.5 MCG/PUFF 6.9 GM INHALER IH SCH (07:46)
[2017-11-17] MEDS: VITAMIN B COMP/VIT C/FOLIC ACID CAPSULE PO SCH ×2 (07:47→09:00)
[2017-11-17] MEDS: CALCITRIOL 0.25 MCG CAPSULE PO SCH ×2 (07:47→09:00)
[2017-11-17] MEDS: OMEPRAZOLE 20 MG CAPSULE PO SCH ×2 (07:47→09:00)
[2017-11-17] MEDS: AmLODIPine BESYLATE 5 MG TABLET PO SCH ×2 (07:47→09:00)
[2017-11-17] MEDS: CARVEDILOL 6.25 MG TABLET PO SCH ×2 (07:47→09:00)
[2017-11-17] MEDS: HEPARIN SODIUM,PORCINE 5,000 UNITS/ML VIAL SQ SCH ×2 (07:48→09:00)
[2017-11-17] MEDS: NICOTINE 21 MG/24 HOUR PATCH TD SCH (07:48)
[2017-11-17] MEDS: DOCUSATE SODIUM 250 MG CAPSULE PO SCH ×2 (07:49→09:00)
[2017-11-17 08:21] VITALS: BP 145/78
[2017-11-17] MEDS ORDERED: SODIUM CHLORIDE 0.9% 2,000 ML IV ONE (08:30)
[2017-11-17] MEDS: ALPRAZolam 0.25 MG TABLET PO PRN (09:33)
[2017-11-17] MEDS ORDERED: LIDOCAINE/PF 1% 2 ML VIAL ID PRN (10:00)
[2017-11-17] MEDS ORDERED: MANNITOL 25%-12.5 GM/50 ML VIAL IVP PRN (10:00)
[2017-11-17] MEDS ORDERED: DiphenhydrAMINE HCL 50 MG/ML VIAL IVP PRN (10:00)
[2017-11-17] MEDS ORDERED: DiphenhydrAMINE HCL 25 MG CAPSULE PO PRN (10:30)
[2017-11-17] MEDS ORDERED: EPOETIN ALFA 10,000 UNITS/ML 2 ML VIAL SQ SCH (10:30)
[2017-11-17 11:31] LABS: GLUCOMETER DEV NAME(LOC) 6N 2D; GLUCOSE,POINT OF CARE 92 MG/DL (70-110)
[2017-11-17 11:32] LABS: GLUCOMETER DEV NAME(LOC) 6N 2D; GLUCOSE,POINT OF CARE 82 MG/DL (70-110)
[2017-11-17 11:38] LABS: BASOPHILS % (AUTO) 0.8 % (0.0-2.0); EOSINOPHILS % (AUTO) 0.3 % (1.0-6.0); HEMATOCRIT 21.2 % (41-53); HEMOGLOBIN 7.1 g/dL (13.5-17.5); LYMPHOCYTES # (AUTO) 0.8 K/uL (1.0-4.8); LYMPHOCYTES % (AUTO) 14.5 % (22.0-44.0); MEAN CORPUSCULAR HEMOGLOBIN 30.8 pg (26.0-34.0); MEAN CORPUSCULAR HGB CONC 33.5 G/dL (31.0-37.0); MEAN CORPUSCULAR VOLUME 92 fL (80-100); MONOCYTES # (AUTO) 0.5 K/uL (0.1-1.0); MONOCYTES % (AUTO) 8.4 % (2.0-9.0); NEUTROPHILS # (AUTO) 4.2 K/uL (1.8-7.7); PLATELET COUNT (AUTO) 124 K/uL (150-450); RED BLOOD CELL COUNT(AUTO) 2.31 MIL/uL (4.50-5.90)
[2017-11-17 11:53] VITALS: BP 115/70
[2017-11-17 15:37] VITALS: BP 119/72
[2017-11-17 17:39] LABS: GLUCOMETER DEV NAME(LOC) 6N 1E; GLUCOSE,POINT OF CARE 78 MG/DL (70-110)
[2017-11-17 17:39] LABS: GLUCOMETER DEV NAME(LOC) 6N 1E; GLUCOSE,POINT OF CARE 97 MG/DL (70-110)
[2017-11-17] MEDS ORDERED: DiphenhydrAMINE HCL 50 MG/ML VIAL IM ONE (17:40)
[2017-11-17] MEDS ORDERED: LIDOCAINE/PF 1% 2 ML VIAL IM ONE (17:40)
[2017-11-17] MEDS ORDERED: PERPHENAZINE 4 MG TABLET PO SCH (21:00)
[2017-11-19] MEDS ORDERED: EPOETIN ALFA 10,000 UNITS/ML 2 ML VIAL SQ SCH (09:00)
== END 2017-11-17 18:30 | DRG 853 ==
LOC: 6N 09:21
PROVIDERS: ADMIT Internal Medicine Geriatric Medicine; ATTEND Internal Medicine Geriatric Medicine
PROC: 5A1D70Z Performance of Urinary Filtration, Intermittent, Less than 6 Hours Per Day (ICD-10-PCS; 2017-11-15)
PROC: 0Y6C0Z3 Detachment at Right Upper Leg, Low, Open Approach (ICD-10-PCS; principal; 2017-11-16 07:30)
PROC: 5A1D70Z Performance of Urinary Filtration, Intermittent, Less than 6 Hours Per Day (ICD-10-PCS; 2017-11-17)
DX: A41.9 Sepsis, unspecified organism (principal); N18.6 End stage renal disease; E11.52 Type 2 diabetes mellitus with diabetic peripheral angiopathy with gangrene; M86.9 Osteomyelitis, unspecified; E46 Unspecified protein-calorie malnutrition; F11.20 Opioid dependence, uncomplicated; J44.1 Chronic obstructive pulmonary disease with (acute) exacerbation; E87.1 Hypo-osmolality and hyponatremia; I96 Gangrene, not elsewhere classified; I12.0 Hypertensive chronic kidney disease with stage 5 chronic kidney disease or end stage renal disease; E11.22 Type 2 diabetes mellitus with diabetic chronic kidney disease; F25.9 Schizoaffective disorder, unspecified; B19.20 Unspecified viral hepatitis C without hepatic coma; D63.1 Anemia in chronic kidney disease; D69.6 Thrombocytopenia, unspecified; E21.3 Hyperparathyroidism, unspecified; E78.5 Hyperlipidemia, unspecified; F12.90 Cannabis use, unspecified, uncomplicated; F17.210 Nicotine dependence, cigarettes, uncomplicated; K20.9 Esophagitis, unspecified; R26.9 Unspecified abnormalities of gait and mobility; Z91.19 Patient's noncompliance with other medical treatment and regimen; Z79.899 Other long term (current) drug therapy; Z89.612 Acquired absence of left leg above knee; Z81.8 Family history of other mental and behavioral disorders; Z82.3 Family history of stroke; Z82.49 Family history of ischemic heart disease and other diseases of the circulatory system; Z82.5 Family history of asthma and other chronic lower respiratory diseases; Z83.3 Family history of diabetes mellitus; Z99.2 Dependence on renal dialysis; Z88.8 Allergy status to other drugs, medicaments and biological substances; Z91.012 Allergy to eggs; Z91.013 Allergy to seafood
CPT/HCPCS: 83735; 84100; 85007; 86704; 86706; 86850; 86900; 86901; 86920; 87081; 87340; 88307; 88311; 93005; 94640; 97163; 97167; 97535; J0131; J0330; J0690; J0885; J1100; J1170; J1200; J1644; J2250; J2274; J2405; J2704; J2765; J3010; J3475; J3490; J7030; J7060

== ENCOUNTER 2017-11-17 18:40 | Inpatient (IN) | payer MEDICARE, OTHER ==
[~2017-11-17] VITALS: Ht 182.9 cm; Wt 61.2 kg
[~2017-11-17 18:40] MED LIST changes: +CARV12 PO; -CARV25 PO
[2017-11-17 19:00] VITALS: BP 152/82
[2017-11-17] MEDS ORDERED: OxyCODONE HCL/ACETAMINOPHEN 10-325 MG TABLET PO PRN ×2 (20:15→20:30)
[2017-11-17] MEDS ORDERED: LIDOCAINE/PRILOCAINE 2.5% 30 GM CREAM TP PRN (20:30)
[2017-11-17] MEDS ORDERED: DiphenhydrAMINE HCL 25 MG CAPSULE PO PRN (20:30)
[2017-11-17] MEDS ORDERED: MANNITOL 25%-12.5 GM/50 ML VIAL IVP PRN (20:30)
[2017-11-17] MEDS ORDERED: LACTULOSE 20 GM/30 ML SOLUTION UDCUP PO PRN (20:30)
[2017-11-17] MEDS ORDERED: MAGNESIUM HYDROXIDE SUSPENSION 30 ML UDCUP PO PRN (20:30)
[2017-11-17] MEDS ORDERED: ACETAMINOPHEN 325 MG TABLET PO PRN (20:30)
[2017-11-17] MEDS ORDERED: OxyCODONE HCL/ACETAMINOPHEN 5-325 MG TABLET PO PRN (20:30)
[2017-11-17] MEDS ORDERED: IPRATROPIUM BROMIDE 0.5 MG/2.5 ML NEB SOLUTION NEB PRN (20:30)
[2017-11-17] MEDS ORDERED: ALBUTEROL SULFATE 2.5 MG/0.5 ML NEB SOLUTION NEB PRN (20:30)
[2017-11-17] MEDS: BUDESONIDE/FORMOTEROL FUMARATE 80-4.5 MCG/PUFF 6.9 GM INHALER IH SCH (21:00)
[2017-11-17] MEDS: SENNA 187 MG TABLET PO SCH (21:34)
[2017-11-17] MEDS: DOCUSATE SODIUM 250 MG CAPSULE PO SCH (21:34)
[2017-11-17] MEDS: CARVEDILOL 6.25 MG TABLET PO SCH (21:35)
[2017-11-17] MEDS: HEPARIN SODIUM,PORCINE 5,000 UNITS/ML VIAL SQ SCH (21:35)
[2017-11-17] MEDS: OMEPRAZOLE 20 MG CAPSULE PO SCH (21:38)
[2017-11-17] MEDS: TraZODone HCL 50 MG TABLET PO SCH (21:39)
[2017-11-17] MEDS: ALPRAZolam 0.25 MG TABLET PO PRN (21:42)
[2017-11-17] MEDS: DiphenhydrAMINE HCL 25 MG CAPSULE PO PRN (21:43)
[2017-11-17] MEDS: ONDANSETRON HCL 4 MG TABLET PO PRN (23:20)
[2017-11-17 23:47] VITALS: BP 157/84
[2017-11-18] VITALS (20 sets, daily range): BP systolic 139–180; BP diastolic 53–97
[2017-11-18] MEDS ORDERED: ONDANSETRON HCL 4 MG TABLET PO SCH
[2017-11-18 00:18] LABS: GLUCOMETER DEV NAME(LOC) 2WR 1B; GLUCOSE,POINT OF CARE 74 MG/DL (70-110)
[2017-11-18 00:33] LABS: GLUCOMETER DEV NAME(LOC) 2WR 2E; GLUCOSE,POINT OF CARE 87 MG/DL (70-110)
[2017-11-18] MEDS: BENZOCAINE/MENTHOL LOZENGE PO PRN ×2 (04:55→14:22)
[2017-11-18] MEDS: LINACLOTIDE 145 MCG CAPSULE PO SCH (05:57)
[2017-11-18 06:29] LABS: GLUCOMETER DEV NAME(LOC) 2WR 1B; GLUCOSE,POINT OF CARE 81 MG/DL (70-110)
[2017-11-18 06:49] LABS: ALBUMIN 1.5 g/dL (3.4-5.0); BILIRUBIN,TOTAL 0.3 mg/dL (0.1-1.0); CREATININE 6.03 mg/dL (0.60-1.30); MAGNESIUM 1.7 mg/dL (1.80-2.40); PHOSPHORUS 6.5 mg/dL (2.5-4.9); TOTAL PROTEIN, SERUM 5.7 g/dL (6.4-8.2)
[2017-11-18 07:03] LABS: BASOPHILS % (AUTO) 0.7 % (0.0-2.0); EOSINOPHILS % (AUTO) 0.3 % (1.0-6.0); LYMPHOCYTES # (AUTO) 0.8 K/uL (1.0-4.8); LYMPHOCYTES % (AUTO) 15.7 % (22.0-44.0); MEAN CORPUSCULAR HEMOGLOBIN 30.8 pg (26.0-34.0); MEAN CORPUSCULAR HGB CONC 33.9 G/dL (31.0-37.0); MEAN CORPUSCULAR VOLUME 91 fL (80-100); MONOCYTES # (AUTO) 0.4 K/uL (0.1-1.0); NEUTROPHILS # (AUTO) 3.7 K/uL (1.8-7.7); NEUTROPHILS % (AUTO) 75.3 % (40.0-70.0); PLATELET COUNT (AUTO) 98 K/uL (150-450); RED BLOOD CELL COUNT(AUTO) 1.95 MIL/uL (4.50-5.90)
[2017-11-18 07:10] LABS: HEMATOCRIT 17.7 % (41-53)
[2017-11-18] MEDS: OMEPRAZOLE 20 MG CAPSULE PO SCH ×2 (08:32→20:40)
[2017-11-18] MEDS: NICOTINE 21 MG/24 HOUR PATCH TD SCH (08:32)
[2017-11-18] MEDS: BUDESONIDE/FORMOTEROL FUMARATE 80-4.5 MCG/PUFF 6.9 GM INHALER IH SCH ×2 (08:32→20:38)
[2017-11-18] MEDS: TIOTROPIUM BROMIDE 18 MCG/INH HANDIHALER [5] IH SCH (08:32)
[2017-11-18 08:41] LABS: HEMOGLOBIN 6.7 g/dL (13.5-17.5)
[2017-11-18 08:42] LABS: HEMATOCRIT 20.3 % (41-53)
[2017-11-18] MEDS: ONDANSETRON HCL 4 MG TABLET PO PRN ×3 (08:50→22:20)
[2017-11-18] MEDS: ARIPiprazole 15 MG TABLET PO SCH (08:58)
[2017-11-18] MEDS: DOCUSATE SODIUM 250 MG CAPSULE PO SCH ×2 (08:58→20:39)
[2017-11-18] MEDS: HEPARIN SODIUM,PORCINE 5,000 UNITS/ML VIAL SQ SCH ×2 (09:00→20:42)
[2017-11-18] MEDS: CALCITRIOL 0.25 MCG CAPSULE PO SCH (09:00)
[2017-11-18] MEDS: VITAMIN B COMP/VIT C/FOLIC ACID CAPSULE PO SCH (09:00)
[2017-11-18] MEDS: AmLODIPine BESYLATE 5 MG TABLET PO SCH (09:00)
[2017-11-18] MEDS: CARVEDILOL 6.25 MG TABLET PO SCH ×2 (09:05→20:40)
[2017-11-18] MEDS ORDERED: OxyCODONE HCL/ACETAMINOPHEN 10-325 MG TABLET PO PRN (10:30)
[2017-11-18] MEDS ORDERED: OxyCODONE HCL/ACETAMINOPHEN 5-325 MG TABLET PO PRN ×2 (10:30→12:00)
[2017-11-18 12:04] LABS: GLUCOMETER DEV NAME(LOC) 2WR 1B; GLUCOSE,POINT OF CARE 87 MG/DL (70-110)
[2017-11-18] MEDS: OxyCODONE HCL/ACETAMINOPHEN 10-325 MG TABLET PO PRN ×3 (12:31→22:20)
[2017-11-18] MEDS: ALPRAZolam 0.25 MG TABLET PO PRN ×2 (13:09→20:39)
[2017-11-18] MEDS: NYSTATIN 15 GM POWDER BOTTLE TP SCH ×2 (14:21→20:41)
[2017-11-18] MEDS ORDERED: SODIUM CHLORIDE 0.9% 250 ML IV ONE (18:41)
[2017-11-18] MEDS: SENNA 187 MG TABLET PO SCH (20:39)
[2017-11-18] MEDS: DiphenhydrAMINE HCL 25 MG CAPSULE PO PRN (20:40)
[2017-11-18] MEDS: TraZODone HCL 50 MG TABLET PO SCH (20:40)
[2017-11-18 22:08] LABS: GLUCOMETER DEV NAME(LOC) 2WR 2E; GLUCOSE,POINT OF CARE 101 MG/DL (70-110)
[2017-11-19] MEDS: OxyCODONE HCL/ACETAMINOPHEN 10-325 MG TABLET PO PRN ×4 (02:20→20:01)
[2017-11-19 04:44] LABS: GLUCOMETER DEV NAME(LOC) 2WR 1B; GLUCOSE,POINT OF CARE 101 MG/DL (70-110)
[2017-11-19] MEDS: ALPRAZolam 0.25 MG TABLET PO PRN (05:33)
[2017-11-19] MEDS: LINACLOTIDE 145 MCG CAPSULE PO SCH (06:36)
[2017-11-19 06:40] LABS: GLUCOMETER DEV NAME(LOC) 2WR 2E; GLUCOSE,POINT OF CARE 78 MG/DL (70-110)
[2017-11-19 07:38] VITALS: BP 157/87
[2017-11-19] MEDS: CALCITRIOL 0.25 MCG CAPSULE PO SCH ×2 (08:00→08:08)
[2017-11-19] MEDS: NICOTINE 21 MG/24 HOUR PATCH TD SCH ×2 (08:01→08:08)
[2017-11-19] MEDS: OMEPRAZOLE 20 MG CAPSULE PO SCH ×2 (08:01→21:01)
[2017-11-19] MEDS: DOCUSATE SODIUM 250 MG CAPSULE PO SCH ×3 (08:02→21:00)
[2017-11-19] MEDS: HEPARIN SODIUM,PORCINE 5,000 UNITS/ML VIAL SQ SCH ×2 (08:02→21:04)
[2017-11-19] MEDS: BUDESONIDE/FORMOTEROL FUMARATE 80-4.5 MCG/PUFF 6.9 GM INHALER IH SCH ×2 (08:02→21:03)
[2017-11-19] MEDS: CARVEDILOL 6.25 MG TABLET PO SCH ×3 (08:03→21:01)
[2017-11-19] MEDS: AmLODIPine BESYLATE 5 MG TABLET PO SCH ×2 (08:03→08:10)
[2017-11-19] MEDS: EPOETIN ALFA 10,000 UNITS/ML 2 ML VIAL SQ SCH (08:19)
[2017-11-19] MEDS: 0.9% SODIUM CHLORIDE 10 ML SYRINGE IVP SCH ×2 (08:25→16:22)
[2017-11-19] MEDS: ARIPiprazole 15 MG TABLET PO SCH (08:29)
[2017-11-19] MEDS: VITAMIN B COMP/VIT C/FOLIC ACID CAPSULE PO SCH (08:30)
[2017-11-19] MEDS: NYSTATIN 15 GM POWDER BOTTLE TP SCH ×2 (09:12→21:04)
[2017-11-19] MEDS: TIOTROPIUM BROMIDE 18 MCG/INH HANDIHALER [5] IH SCH (09:12)
[2017-11-19] MEDS ORDERED: SODIUM CHLORIDE 0.9% 1,000 ML IV ONE ×2 (13:33)
[2017-11-19 13:54] LABS: GLUCOMETER DEV NAME(LOC) 2WR 2E; GLUCOSE,POINT OF CARE 123 MG/DL (70-110)
[2017-11-19] MEDS ORDERED: DiphenhydrAMINE HCL 50 MG/ML VIAL IM ONE (14:09)
[2017-11-19 14:40] LABS: HEMATOCRIT 24.1 % (41-53); HEMOGLOBIN 8.1 g/dL (13.5-17.5)
[2017-11-19 15:10] VITALS: BP 151/70
[2017-11-19] MEDS: ZIPRASIDONE HCL 20 MG CAPSULE PO SCH (19:12)
[2017-11-19 20:55] VITALS: BP 156/78
[2017-11-19] MEDS: SENNA 187 MG TABLET PO SCH (21:00)
[2017-11-19] MEDS: TraZODone HCL 50 MG TABLET PO SCH (21:02)
[2017-11-19 22:01] LABS: GLUCOMETER DEV NAME(LOC) 2WR 2E; GLUCOSE,POINT OF CARE 84 MG/DL (70-110)
[2017-11-20] MEDS: 0.9% SODIUM CHLORIDE 10 ML SYRINGE IVP SCH ×4 (00:32→23:42)
[2017-11-20 02:51] LABS: GLUCOMETER DEV NAME(LOC) 2WR 1C; GLUCOSE,POINT OF CARE 118 MG/DL (70-110)
[2017-11-20 03:39] VITALS: BP 145/78
[2017-11-20] MEDS: OxyCODONE HCL/ACETAMINOPHEN 10-325 MG TABLET PO PRN ×4 (03:39→19:20)
[2017-11-20] MEDS: ONDANSETRON HCL 4 MG TABLET PO PRN (03:57)
[2017-11-20] MEDS: ALPRAZolam 0.25 MG TABLET PO PRN ×3 (05:46→22:17)
[2017-11-20] MEDS: LINACLOTIDE 145 MCG CAPSULE PO SCH (06:07)
[2017-11-20 07:11] LABS: BASOPHILS % (AUTO) 0.8 % (0.0-2.0); HEMOGLOBIN 8.2 g/dL (13.5-17.5); LYMPHOCYTES # (AUTO) 0.7 K/uL (1.0-4.8); MEAN CORPUSCULAR HGB CONC 34.1 G/dL (31.0-37.0); MEAN CORPUSCULAR VOLUME 91 fL (80-100); MONOCYTES # (AUTO) 0.4 K/uL (0.1-1.0); MONOCYTES % (AUTO) 8.8 % (2.0-9.0); NEUTROPHILS # (AUTO) 3.7 K/uL (1.8-7.7); NEUTROPHILS % (AUTO) 74.4 % (40.0-70.0); PLATELET COUNT (AUTO) 92 K/uL (150-450); RED BLOOD CELL COUNT(AUTO) 2.64 MIL/uL (4.50-5.90); RED CELL DISTRIBUTION WIDTH 17.5 % (11.5-14.5)
[2017-11-20 07:20] VITALS: BP 158/92
[2017-11-20 07:49] LABS: CALCIUM, TOTAL 7.5 mg/dL (8.8-10.5); CREATININE 5.82 mg/dL (0.60-1.30); MAGNESIUM 1.6 mg/dL (1.80-2.40); PHOSPHORUS 5.8 mg/dL (2.5-4.9); POTASSIUM 4.8 mmol/L (3.5-5.1)
[2017-11-20] MEDS: OMEPRAZOLE 20 MG CAPSULE PO SCH ×2 (08:45→20:14)
[2017-11-20] MEDS: CARVEDILOL 6.25 MG TABLET PO SCH ×2 (08:46→20:14)
[2017-11-20] MEDS: AmLODIPine BESYLATE 5 MG TABLET PO SCH (08:46)
[2017-11-20] MEDS: TIOTROPIUM BROMIDE 18 MCG/INH HANDIHALER [5] IH SCH (08:46)
[2017-11-20] MEDS: BUDESONIDE/FORMOTEROL FUMARATE 80-4.5 MCG/PUFF 6.9 GM INHALER IH SCH ×2 (08:46→20:15)
[2017-11-20] MEDS: NICOTINE 21 MG/24 HOUR PATCH TD SCH (08:48)
[2017-11-20] MEDS: DOCUSATE SODIUM 250 MG CAPSULE PO SCH ×2 (08:53→20:23)
[2017-11-20] MEDS: CALCITRIOL 0.25 MCG CAPSULE PO SCH (08:53)
[2017-11-20] MEDS: VITAMIN B COMP/VIT C/FOLIC ACID CAPSULE PO SCH (08:53)
[2017-11-20] MEDS: HEPARIN SODIUM,PORCINE 5,000 UNITS/ML VIAL SQ SCH ×2 (08:54→20:23)
[2017-11-20] MEDS ORDERED: MAGNESIUM SULFATE 2 GM in DEXTROSE 5%-WATER 50 ML IV ONE (10:00)
[2017-11-20 11:52] LABS: GLUCOMETER DEV NAME(LOC) 2WR 2E; GLUCOSE,POINT OF CARE 89 MG/DL (70-110)
[2017-11-20] MEDS ORDERED: SODIUM CHLORIDE 0.9% 250 ML IV ONE (12:49)
[2017-11-20] MEDS: SEVELAMER CARBONATE 800 MG TABLET PO SCH ×2 (13:03→16:01)
[2017-11-20] MEDS: NYSTATIN 15 GM POWDER BOTTLE TP SCH ×2 (13:05→20:15)
[2017-11-20 14:04] VITALS: BP 167/82
[2017-11-20] MEDS ORDERED: CloNIDine HCL 0.1 MG TABLET PO PRN (14:15)
[2017-11-20] MEDS: ZIPRASIDONE HCL 20 MG CAPSULE PO SCH ×2 (16:02→17:00)
[2017-11-20] MEDS: DiphenhydrAMINE HCL 25 MG CAPSULE PO PRN (16:02)
[2017-11-20 16:22] VITALS: BP 150/79
[2017-11-20] MEDS: TraZODone HCL 50 MG TABLET PO SCH (20:14)
[2017-11-20 20:20] VITALS: BP 157/86
[2017-11-20] MEDS: SENNA 187 MG TABLET PO SCH (20:23)
[2017-11-20 23:46] VITALS: BP 158/68
[2017-11-21] MEDS: OxyCODONE HCL/ACETAMINOPHEN 10-325 MG TABLET PO PRN ×5 (00:35→19:37)
[2017-11-21] MEDS: DiphenhydrAMINE HCL 25 MG CAPSULE PO PRN ×2 (01:44→20:42)
[2017-11-21] MEDS: BENZOCAINE/MENTHOL LOZENGE PO PRN ×2 (02:32→22:04)
[2017-11-21 02:40] LABS: GLUCOMETER DEV NAME(LOC) 2WR 2E; GLUCOSE,POINT OF CARE 127 MG/DL (70-110)
[2017-11-21] MEDS: LINACLOTIDE 145 MCG CAPSULE PO SCH (06:52)
[2017-11-21 07:20] VITALS: BP 150/71
[2017-11-21] MEDS: SEVELAMER CARBONATE 800 MG TABLET PO SCH ×3 (08:14→18:07)
[2017-11-21] MEDS: ALPRAZolam 0.25 MG TABLET PO PRN ×2 (08:14→19:37)
[2017-11-21] MEDS: HEPARIN SODIUM,PORCINE 5,000 UNITS/ML VIAL SQ SCH ×2 (08:45→20:31)
[2017-11-21] MEDS: CALCITRIOL 0.25 MCG CAPSULE PO SCH (08:46)
[2017-11-21] MEDS: TIOTROPIUM BROMIDE 18 MCG/INH HANDIHALER [5] IH SCH (08:46)
[2017-11-21] MEDS: AmLODIPine BESYLATE 5 MG TABLET PO SCH (08:46)
[2017-11-21] MEDS: BUDESONIDE/FORMOTEROL FUMARATE 80-4.5 MCG/PUFF 6.9 GM INHALER IH SCH ×2 (08:46→20:29)
[2017-11-21] MEDS: OMEPRAZOLE 20 MG CAPSULE PO SCH ×2 (08:47→20:30)
[2017-11-21] MEDS: CARVEDILOL 6.25 MG TABLET PO SCH ×2 (08:47→20:30)
[2017-11-21] MEDS: VITAMIN B COMP/VIT C/FOLIC ACID CAPSULE PO SCH (08:47)
[2017-11-21] MEDS: EPOETIN ALFA 10,000 UNITS/ML 2 ML VIAL SQ SCH (08:48)
[2017-11-21] MEDS: 0.9% SODIUM CHLORIDE 10 ML SYRINGE IVP SCH ×3 (08:49→23:35)
[2017-11-21] MEDS: DOCUSATE SODIUM 250 MG CAPSULE PO SCH ×2 (09:00→21:00)
[2017-11-21] MEDS ORDERED: EPOETIN ALFA 10,000 UNITS/ML 2 ML VIAL SQ SCH (09:00)
[2017-11-21] MEDS: NICOTINE 21 MG/24 HOUR PATCH TD SCH (09:17)
[2017-11-21] MEDS: NYSTATIN 15 GM POWDER BOTTLE TP SCH ×2 (09:17→20:31)
[2017-11-21 09:26] LABS: GLUCOMETER DEV NAME(LOC) 2WR 1C; GLUCOSE,POINT OF CARE 107 MG/DL (70-110)
[2017-11-21] MEDS ORDERED: SODIUM CHLORIDE 0.9% 1,000 ML IV ONE ×2 (10:57)
[2017-11-21] MEDS: ZIPRASIDONE HCL 20 MG CAPSULE PO SCH ×2 (12:38→18:07)
[2017-11-21 13:35] LABS: GLUCOMETER DEV NAME(LOC) 2WR 2E; GLUCOSE,POINT OF CARE 91 MG/DL (70-110)
[2017-11-21 15:30] VITALS: BP 164/96
[2017-11-21 20:20] VITALS: BP 133/80
[2017-11-21] MEDS: TraZODone HCL 50 MG TABLET PO SCH (20:30)
[2017-11-21 20:41] VITALS: BP 133/80
[2017-11-21] MEDS: ONDANSETRON HCL 4 MG TABLET PO PRN (20:42)
[2017-11-21] MEDS: SENNA 187 MG TABLET PO SCH (21:00)
[2017-11-21 23:30] VITALS: BP 163/90
[2017-11-22] MEDS: OxyCODONE HCL/ACETAMINOPHEN 10-325 MG TABLET PO PRN ×5 (00:25→21:00)
[2017-11-22 00:42] LABS: GLUCOMETER DEV NAME(LOC) 2WR 2E; GLUCOSE,POINT OF CARE 81 MG/DL (70-110)
[2017-11-22] MEDS: ALPRAZolam 0.25 MG TABLET PO PRN ×2 (04:09→21:01)
[2017-11-22] MEDS: LINACLOTIDE 145 MCG CAPSULE PO SCH (07:00)
[2017-11-22 08:00] VITALS: BP 156/80
[2017-11-22] MEDS: SEVELAMER CARBONATE 800 MG TABLET PO SCH ×3 (08:30→16:48)
[2017-11-22] MEDS: CALCITRIOL 0.25 MCG CAPSULE PO SCH (08:30)
[2017-11-22] MEDS: CARVEDILOL 6.25 MG TABLET PO SCH ×2 (08:31→21:00)
[2017-11-22] MEDS: AmLODIPine BESYLATE 5 MG TABLET PO SCH (08:31)
[2017-11-22] MEDS: DOCUSATE SODIUM 250 MG CAPSULE PO SCH ×2 (08:31→21:00)
[2017-11-22] MEDS: VITAMIN B COMP/VIT C/FOLIC ACID CAPSULE PO SCH (08:31)
[2017-11-22] MEDS: DiphenhydrAMINE HCL 25 MG CAPSULE PO PRN ×2 (08:31→23:42)
[2017-11-22] MEDS: OMEPRAZOLE 20 MG CAPSULE PO SCH ×2 (08:31→21:01)
[2017-11-22] MEDS: NICOTINE 21 MG/24 HOUR PATCH TD SCH (08:32)
[2017-11-22] MEDS: TIOTROPIUM BROMIDE 18 MCG/INH HANDIHALER [5] IH SCH (08:32)
[2017-11-22] MEDS: BUDESONIDE/FORMOTEROL FUMARATE 80-4.5 MCG/PUFF 6.9 GM INHALER IH SCH ×2 (08:32→20:59)
[2017-11-22] MEDS: NYSTATIN 15 GM POWDER BOTTLE TP SCH ×2 (08:33→21:02)
[2017-11-22 09:02] LABS: BASOPHILS % (AUTO) 0.6 % (0.0-2.0); EOSINOPHILS % (AUTO) 1.3 % (1.0-6.0); HEMATOCRIT 27.1 % (41-53); HEMOGLOBIN 9.2 g/dL (13.5-17.5); LYMPHOCYTES # (AUTO) 0.6 K/uL (1.0-4.8); LYMPHOCYTES % (AUTO) 13.2 % (22.0-44.0); MEAN CORPUSCULAR HEMOGLOBIN 30.9 pg (26.0-34.0); MEAN CORPUSCULAR HGB CONC 33.8 G/dL (31.0-37.0); MEAN CORPUSCULAR VOLUME 91 fL (80-100); MONOCYTES # (AUTO) 0.3 K/uL (0.1-1.0); MONOCYTES % (AUTO) 6.6 % (2.0-9.0); NEUTROPHILS # (AUTO) 3.7 K/uL (1.8-7.7); NEUTROPHILS % (AUTO) 78.3 % (40.0-70.0); PLATELET COUNT (AUTO) 138 K/uL (150-450); RED BLOOD CELL COUNT(AUTO) 2.97 MIL/uL (4.50-5.90); RED CELL DISTRIBUTION WIDTH 17.9 % (11.5-14.5)
[2017-11-22 09:13] LABS: CALCIUM, TOTAL 8.6 mg/dL (8.8-10.5); CREATININE 5.63 mg/dL (0.60-1.30); MAGNESIUM 1.5 mg/dL (1.80-2.40); PHOSPHORUS 5.2 mg/dL (2.5-4.9); POTASSIUM 4.8 mmol/L (3.5-5.1)
[2017-11-22] MEDS ORDERED: VITAMIN B COMP/VIT C/FOLIC ACID CAPSULE PO SCH (11:45)
[2017-11-22] MEDS: ZIPRASIDONE HCL 20 MG CAPSULE PO SCH ×2 (12:36→16:48)
[2017-11-22] MEDS: 0.9% SODIUM CHLORIDE 10 ML SYRINGE IVP SCH ×3 (12:36→23:44)
[2017-11-22 15:57] LABS: GLUCOMETER DEV NAME(LOC) 2WR 1C; GLUCOSE,POINT OF CARE 57 MG/DL (70-110)
[2017-11-22 16:00] VITALS: BP 162/78
[2017-11-22 16:19] LABS: GLUCOMETER DEV NAME(LOC) 2WR 1C; GLUCOSE,POINT OF CARE 69 MG/DL (70-110)
[2017-11-22 16:19] LABS: GLUCOMETER DEV NAME(LOC) 2WR 1C; GLUCOSE,POINT OF CARE 91 MG/DL (70-110)
[2017-11-22 16:19] LABS: GLUCOMETER DEV NAME(LOC) 2WR 2E; GLUCOSE,POINT OF CARE 124 MG/DL (70-110)
[2017-11-22 16:43] LABS: GLUCOMETER DEV NAME(LOC) 2WR 2E; GLUCOSE,POINT OF CARE 99 MG/DL (70-110)
[2017-11-22 21:00] VITALS: BP 154/78
[2017-11-22] MEDS: SENNA 187 MG TABLET PO SCH (21:00)
[2017-11-22] MEDS: TraZODone HCL 50 MG TABLET PO SCH (21:00)
[2017-11-23 01:48] VITALS: BP 156/82
[2017-11-23] MEDS: OxyCODONE HCL/ACETAMINOPHEN 10-325 MG TABLET PO PRN ×3 (01:48→10:20)
[2017-11-23 01:54] LABS: GLUCOMETER DEV NAME(LOC) 5S 1M; GLUCOSE,POINT OF CARE 112 MG/DL (70-110)
[2017-11-23] MEDS: LINACLOTIDE 145 MCG CAPSULE PO SCH (06:54)
[2017-11-23 07:05] VITALS: BP 148/79
[2017-11-23] MEDS: SEVELAMER CARBONATE 800 MG TABLET PO SCH (07:30)
[2017-11-23] MEDS ORDERED: DiphenhydrAMINE HCL 50 MG/ML VIAL IVP PRN (08:45)
[2017-11-23] MEDS: CARVEDILOL 6.25 MG TABLET PO SCH (09:00)
[2017-11-23] MEDS: AmLODIPine BESYLATE 5 MG TABLET PO SCH (09:00)
[2017-11-23] MEDS: DOCUSATE SODIUM 250 MG CAPSULE PO SCH (09:00)
[2017-11-23] MEDS: CALCITRIOL 0.25 MCG CAPSULE PO SCH (09:00)
[2017-11-23] MEDS: VITAMIN B COMP/VIT C/FOLIC ACID CAPSULE PO SCH (09:00)
[2017-11-23] MEDS: BUDESONIDE/FORMOTEROL FUMARATE 80-4.5 MCG/PUFF 6.9 GM INHALER IH SCH (09:55)
[2017-11-23] MEDS: TIOTROPIUM BROMIDE 18 MCG/INH HANDIHALER [5] IH SCH (09:55)
[2017-11-23] MEDS: OMEPRAZOLE 20 MG CAPSULE PO SCH (09:55)
[2017-11-23] MEDS: ALPRAZolam 0.25 MG TABLET PO PRN (09:55)
[2017-11-23] MEDS: NICOTINE 21 MG/24 HOUR PATCH TD SCH (09:56)
[2017-11-23] MEDS: NYSTATIN 15 GM POWDER BOTTLE TP SCH (09:57)
[2017-11-23] MEDS: 0.9% SODIUM CHLORIDE 10 ML SYRINGE IVP SCH (09:57)
== END 2017-11-23 14:10 | DRG 299 ==
LOC: 2WR 18:40
PROVIDERS: ADMIT Physical Medicine & Rehabilitation; ATTEND Physical Medicine & Rehabilitation
PROC: 30233N1 Transfusion of Nonautologous Red Blood Cells into Peripheral Vein, Percutaneous Approach (ICD-10-PCS; 2017-11-18)
PROC: 5A1D70Z Performance of Urinary Filtration, Intermittent, Less than 6 Hours Per Day (ICD-10-PCS; principal; 2017-11-19)
PROC: 5A1D70Z Performance of Urinary Filtration, Intermittent, Less than 6 Hours Per Day (ICD-10-PCS; 2017-11-21)
PROC: 5A1D70Z Performance of Urinary Filtration, Intermittent, Less than 6 Hours Per Day (ICD-10-PCS; 2017-11-23)
DX: E11.52 Type 2 diabetes mellitus with diabetic peripheral angiopathy with gangrene (principal); N18.6 End stage renal disease; E46 Unspecified protein-calorie malnutrition; E87.1 Hypo-osmolality and hyponatremia; F11.20 Opioid dependence, uncomplicated; I12.0 Hypertensive chronic kidney disease with stage 5 chronic kidney disease or end stage renal disease; J44.1 Chronic obstructive pulmonary disease with (acute) exacerbation; Z68.1 Body mass index [BMI] 19.9 or less, adult; B19.20 Unspecified viral hepatitis C without hepatic coma; E11.22 Type 2 diabetes mellitus with diabetic chronic kidney disease; E78.5 Hyperlipidemia, unspecified; F12.90 Cannabis use, unspecified, uncomplicated; D63.1 Anemia in chronic kidney disease; E83.42 Hypomagnesemia; G47.00 Insomnia, unspecified; R26.9 Unspecified abnormalities of gait and mobility; D69.6 Thrombocytopenia, unspecified; F25.9 Schizoaffective disorder, unspecified; F32.9 Major depressive disorder, single episode, unspecified; Z99.2 Dependence on renal dialysis; Z89.611 Acquired absence of right leg above knee; Z89.612 Acquired absence of left leg above knee; Z90.49 Acquired absence of other specified parts of digestive tract; Z91.19 Patient's noncompliance with other medical treatment and regimen; Z22.322 Carrier or suspected carrier of Methicillin resistant Staphylococcus aureus; Z99.81 Dependence on supplemental oxygen; Z82.3 Family history of stroke; Z82.49 Family history of ischemic heart disease and other diseases of the circulatory system; Z82.5 Family history of asthma and other chronic lower respiratory diseases; Z83.3 Family history of diabetes mellitus
CPT/HCPCS: 83036; 83540; 83550; 83735; 84100; 85014; 85018; 86850; 86900; 86901; 86920; 87081; 87340; 97110; 97163; 97167; 97530; 97535; 99366; J0885; J1200; J1644; J3475; J7030; J7050; J7060; P9016; Q0162

== ENCOUNTER 2017-12-23 11:42 | Inpatient (IN) | payer MEDICARE, OTHER ==
[~2017-12-23] VITALS: Ht 94 cm; Wt 74.5 kg
[~2017-12-23 11:42] MED LIST changes: -ACET-784 PO; -ARIP15TA7 PO; -BISA10S PR; -DIPH25 PO; -IPRNEB IH; -LACT30L PO; -METR500 PO; -MOM30 PO; -NICO-650 MISC; -ONDA4 PO; -PERCT10 PO; -VANC1IV IV; +ZIPR20CA2 PO; -ZOLP5 PO; -[UNRECOGNIZED DRUG - CODE] IV
[2017-12-23 12:34] LABS: GLUCOSE,POINT OF CARE 101 MG/DL (70-110)
[2017-12-23] MEDS ORDERED: HYDROCODONE/ACETAMINOPHEN 5-325 MG TABLET PO ONE (13:00)
[2017-12-23 15:32] LABS: HEMATOCRIT 30.4 % (41-53); MEAN CORPUSCULAR HEMOGLOBIN 30.7 pg (26.0-34.0); MEAN CORPUSCULAR HGB CONC 32.9 G/dL (31.0-37.0); MEAN CORPUSCULAR VOLUME 93 fL (80-100); PLATELET COUNT (AUTO) 89 K/uL (150-450); RED BLOOD CELL COUNT(AUTO) 3.25 MIL/uL (4.50-5.90); RED CELL DISTRIBUTION WIDTH 17.9 % (11.5-14.5)
[2017-12-23 15:41] LABS: CALCIUM, TOTAL 8.8 mg/dL (8.8-10.5); CREATININE 5.93 mg/dL (0.60-1.30); POTASSIUM 4.8 mmol/L (3.5-5.1)
[2017-12-23 15:47] LABS: ALBUMIN 1.9 g/dL (3.4-5.0); BILIRUBIN,TOTAL 0.3 mg/dL (0.1-1.0); TOTAL PROTEIN, SERUM 6.7 g/dL (6.4-8.2)
[2017-12-23] MEDS ORDERED: 0.9% SODIUM CHLORIDE 10 ML SYRINGE IVP PRN (16:00)
[2017-12-23] MEDS ORDERED: ONDANSETRON HCL 4 MG/2 ML VIAL IVP PRN (16:00)
[2017-12-23] MEDS ORDERED: ACETAMINOPHEN 325 MG TABLET PO PRN ×2 (16:00→19:45)
[2017-12-23 16:13] LABS: BAND NEUTROPHILS % (MANUAL) 11 % (0-5); BASOPHILS % (MANUAL) 1 % (0-2); LYMPHOCYTES % (MANUAL) 32 % (22-44); MONOCYTES % (MANUAL) 11 % (2-9); SEGMENTED NEUTROPHILS % 45 % (40-70)
[2017-12-23 18:00] VITALS: BP 143/84
[2017-12-23] MEDS ORDERED: BISACODYL 10 MG RECTAL RECTAL SUPPOSITORY PR PRN (19:45)
[2017-12-23] MEDS ORDERED: OxyCODONE HCL/ACETAMINOPHEN 5-325 MG TABLET PO PRN (19:45)
[2017-12-23] MEDS ORDERED: IPRATROPIUM BROMIDE 0.5 MG/2.5 ML NEB SOLUTION NEB PRN (19:45)
[2017-12-23] MEDS ORDERED: ALBUTEROL SULFATE 2.5 MG/0.5 ML NEB SOLUTION NEB PRN (19:45)
[2017-12-23 20:00] VITALS: BP 154/84
[2017-12-23] MEDS ORDERED: CARVEDILOL 12.5 MG TABLET PO SCH (21:00)
[2017-12-23] MEDS ORDERED: DOCUSATE SODIUM 250 MG CAPSULE PO SCH (21:00)
[2017-12-23] MEDS ORDERED: OxyCODONE HCL/ACETAMINOPHEN 10-325 MG TABLET PO PRN ×3 (23:30)
[2017-12-23] MEDS ORDERED: DiphenhydrAMINE HCL 50 MG/ML VIAL IM PRN (23:30)
[2017-12-23] MEDS ORDERED: VANCOMYCIN HCL 1 GM/D5% WATER 200 ML IV PRN (23:45)
[2017-12-23] MEDS: OxyCODONE HCL/ACETAMINOPHEN 10-325 MG TABLET PO PRN (23:51)
[2017-12-23] MEDS ORDERED: VANCOMYCIN HCL 1.25 GM in DEXTROSE 5%-WATER 250 ML IV ONE (23:55)
[2017-12-24] VITALS (8 sets, daily range): BP systolic 141–168; BP diastolic 80–99
[2017-12-24] MEDS: ALPRAZolam 0.5 MG TABLET PO PRN ×2 (00:46→16:23)
[2017-12-24] MEDS ORDERED: SODIUM CHLORIDE 0.9% 250 ML IV ONE (01:41)
[2017-12-24 05:01] LABS: HEMATOCRIT 28.6 % (41-53); HEMOGLOBIN 9.4 g/dL (13.5-17.5); MEAN CORPUSCULAR HEMOGLOBIN 30.9 pg (26.0-34.0); MEAN CORPUSCULAR VOLUME 94 fL (80-100); PLATELET COUNT (AUTO) 92 K/uL (150-450); RED BLOOD CELL COUNT(AUTO) 3.05 MIL/uL (4.50-5.90); RED CELL DISTRIBUTION WIDTH 17.8 % (11.5-14.5)
[2017-12-24 05:20] LABS: ALBUMIN 1.8 g/dL (3.4-5.0); BILIRUBIN,TOTAL 0.4 mg/dL (0.1-1.0); CALCIUM, TOTAL 8.7 mg/dL (8.8-10.5); CREATININE 6.33 mg/dL (0.60-1.30); MAGNESIUM 1.7 mg/dL (1.80-2.40); PHOSPHORUS 6.8 mg/dL (2.5-4.9); POTASSIUM 5.3 mmol/L (3.5-5.1); TOTAL PROTEIN, SERUM 6.4 g/dL (6.4-8.2)
[2017-12-24 05:22] LABS: PLATELET MORPHOLOGY COMMENT GIANT PLTS PRESENT
[2017-12-24 05:33] LABS: BAND NEUTROPHILS % (MANUAL) 9 % (0-5); BASOPHILS % (MANUAL) 1 % (0-2); LYMPHOCYTES % (MANUAL) 32 % (22-44); MONOCYTES % (MANUAL) 10 % (2-9); SEGMENTED NEUTROPHILS % 48 % (40-70)
[2017-12-24] MEDS: LINACLOTIDE 145 MCG CAPSULE PO SCH (06:37)
[2017-12-24] MEDS ORDERED: ZIPRASIDONE HCL 20 MG CAPSULE PO SCH (08:00)
[2017-12-24] MEDS ORDERED: OxyCODONE HCL/ACETAMINOPHEN 5-325 MG TABLET PO PRN (08:00)
[2017-12-24] MEDS: TIOTROPIUM BROMIDE 18 MCG/INH HANDIHALER [5] IH SCH (08:38)
[2017-12-24] MEDS: SEVELAMER CARBONATE 800 MG TABLET PO SCH ×4 (08:39→18:46)
[2017-12-24] MEDS: OMEPRAZOLE 20 MG CAPSULE PO SCH ×2 (08:39→20:07)
[2017-12-24] MEDS: BUDESONIDE/FORMOTEROL FUMARATE 80-4.5 MCG/PUFF 6.9 GM INHALER IH SCH ×2 (08:40→20:09)
[2017-12-24] MEDS: DOCUSATE SODIUM 250 MG CAPSULE PO SCH ×2 (08:40→20:05)
[2017-12-24] MEDS: CALCITRIOL 0.25 MCG CAPSULE PO SCH (08:41)
[2017-12-24] MEDS: PREGABALIN 25 MG CAPSULE PO SCH ×2 (08:41→20:08)
[2017-12-24] MEDS ORDERED: AmLODIPine BESYLATE 5 MG TABLET PO SCH (09:00)
[2017-12-24] MEDS ORDERED: EPOETIN ALFA 10,000 UNITS/ML 2 ML VIAL SQ ONE (10:45)
[2017-12-24] MEDS ORDERED: LOPERAMIDE HCL 2 MG CAPSULE PO PRN (12:00)
[2017-12-24] MEDS ORDERED: ACETAMINOPHEN 325 MG TABLET PO PRN (15:15)
[2017-12-24] MEDS ORDERED: SODIUM CHLORIDE 0.9% 1,000 ML IV ONE ×3 (15:50→19:23)
[2017-12-24] MEDS: CARVEDILOL 12.5 MG TABLET PO SCH ×2 (16:02→23:36)
[2017-12-24] MEDS: OxyCODONE HCL/ACETAMINOPHEN 10-325 MG TABLET PO PRN (16:24)
[2017-12-24] MEDS ORDERED: DiphenhydrAMINE HCL 50 MG/ML VIAL IVP ONE ×2 (16:45→19:00)
[2017-12-24] MEDS ORDERED: LIDOCAINE/PF 1% 2 ML VIAL INJ ONE (17:07)
[2017-12-24] MEDS ORDERED: DiphenhydrAMINE HCL 50 MG/ML VIAL IM ONE (17:07)
[2017-12-24] MEDS: AmLODIPine BESYLATE 5 MG TABLET PO SCH (18:47)
[2017-12-24] MEDS ORDERED: TraZODone HCL 50 MG TABLET PO SCH (21:00)
[2017-12-24] MEDS ORDERED: TraZODone HCL 50 MG TABLET PO PRN (21:00)
[2017-12-25 04:51] VITALS: BP 148/83
[2017-12-25 06:46] LABS: CALCIUM, TOTAL 8.4 mg/dL (8.8-10.5); CREATININE 5.34 mg/dL (0.60-1.30); POTASSIUM 5.1 mmol/L (3.5-5.1); VANCOMYCIN,RANDOM 20.2 mcg/mL (25.0-50.0)
[2017-12-25] MEDS: LINACLOTIDE 145 MCG CAPSULE PO SCH (07:04)
[2017-12-25 07:44] VITALS: BP 162/91
[2017-12-25] MEDS: OxyCODONE HCL/ACETAMINOPHEN 10-325 MG TABLET PO PRN (07:49)
[2017-12-25] MEDS ORDERED: EPOETIN ALFA 10,000 UNITS/ML 2 ML VIAL SQ SCH (09:00)
[2017-12-25] MEDS ORDERED: VITAMIN B COMP/VIT C/FOLIC ACID CAPSULE PO SCH (09:00)
[2017-12-25] MEDS: DOCUSATE SODIUM 250 MG CAPSULE PO SCH (09:00)
[2017-12-25] MEDS: SEVELAMER CARBONATE 800 MG TABLET PO SCH ×3 (10:28→17:39)
[2017-12-25] MEDS: CARVEDILOL 12.5 MG TABLET PO SCH (10:28)
[2017-12-25] MEDS: BUDESONIDE/FORMOTEROL FUMARATE 80-4.5 MCG/PUFF 6.9 GM INHALER IH SCH (10:30)
[2017-12-25] MEDS: TIOTROPIUM BROMIDE 18 MCG/INH HANDIHALER [5] IH SCH (10:30)
[2017-12-25] MEDS: ALPRAZolam 0.5 MG TABLET PO PRN (10:42)
[2017-12-25 11:17] VITALS: BP 144/78
[2017-12-25] MEDS ORDERED: LIDOCAINE/PF 1% 2 ML VIAL ID PRN (14:00)
[2017-12-25] MEDS ORDERED: DiphenhydrAMINE HCL 50 MG/ML VIAL IVP PRN (14:00)
[2017-12-25] MEDS ORDERED: PREG25 PO (15:33)
[2017-12-25] MEDS ORDERED: ACET-2902 PO (15:34)
[2017-12-25] MEDS ORDERED: DIPH25 PO (15:34)
[2017-12-25] MEDS ORDERED: OXYC-43 PO (15:35)
[2017-12-25] MEDS ORDERED: LOPE2 PO (15:35)
[2017-12-25] MEDS ORDERED: PERCT10 PO (15:36)
[2017-12-25] MEDS ORDERED: [UNRECOGNIZED DRUG - CODE] IV (15:38)
[2017-12-25] MEDS ORDERED: VANCOMYCIN HCL 1 GM/D5% WATER 200 ML IV ONE (16:00)
[2017-12-25] MEDS ORDERED: ALPRAZolam 0.5 MG TABLET PO PRN (16:45)
[2017-12-25] MEDS: CALCITRIOL 0.25 MCG CAPSULE PO SCH (17:38)
[2017-12-25] MEDS: PREGABALIN 25 MG CAPSULE PO SCH (17:38)
[2017-12-25] MEDS: OMEPRAZOLE 20 MG CAPSULE PO SCH (17:38)
[2017-12-25] MEDS: AmLODIPine BESYLATE 5 MG TABLET PO SCH (17:39)
[2017-12-25] MEDS ORDERED: LIDOCAINE/PF 1% 2 ML VIAL IV ONE (17:59)
[2017-12-25] MEDS ORDERED: DiphenhydrAMINE HCL 50 MG/ML VIAL IVP ONE (17:59)
[2017-12-25] MEDS ORDERED: ZIPRASIDONE HCL 20 MG CAPSULE PO SCH (18:00)
== END 2017-12-25 18:00 | DRG 82 ==
LOC: EMS 11:45 → ICU 16:18 → 5N 12-24 09:35
PROVIDERS: ADMIT Internal Medicine; ATTEND Internal Medicine
PROC: 5A1D70Z Performance of Urinary Filtration, Intermittent, Less than 6 Hours Per Day (ICD-10-PCS; principal; 2017-12-24)
PROC: 5A1D70Z Performance of Urinary Filtration, Intermittent, Less than 6 Hours Per Day (ICD-10-PCS; 2017-12-25)
DX: S02.19XA Other fracture of base of skull, initial encounter for closed fracture (principal); N18.6 End stage renal disease; S06.6X9A Traumatic subarachnoid hemorrhage with loss of consciousness of unspecified duration, initial encounter; G93.40 Encephalopathy, unspecified; D61.818 Other pancytopenia; I13.2 Hypertensive heart and chronic kidney disease with heart failure and with stage 5 chronic kidney disease, or end stage renal disease; I50.32 Chronic diastolic (congestive) heart failure; E87.1 Hypo-osmolality and hyponatremia; N25.81 Secondary hyperparathyroidism of renal origin; B19.20 Unspecified viral hepatitis C without hepatic coma; K74.60 Unspecified cirrhosis of liver; E11.22 Type 2 diabetes mellitus with diabetic chronic kidney disease; D63.1 Anemia in chronic kidney disease; E11.21 Type 2 diabetes mellitus with diabetic nephropathy; E11.40 Type 2 diabetes mellitus with diabetic neuropathy, unspecified; E11.51 Type 2 diabetes mellitus with diabetic peripheral angiopathy without gangrene; F17.210 Nicotine dependence, cigarettes, uncomplicated; G47.00 Insomnia, unspecified; J44.9 Chronic obstructive pulmonary disease, unspecified; V00.141A Fall from scooter (nonmotorized), initial encounter; Y93.89 Activity, other specified; Y92.89 Other specified places as the place of occurrence of the external cause; Y99.8 Other external cause status; Z83.3 Family history of diabetes mellitus; Z89.511 Acquired absence of right leg below knee; Z89.611 Acquired absence of right leg above knee; Z89.612 Acquired absence of left leg above knee; Z90.49 Acquired absence of other specified parts of digestive tract; Z93.3 Colostomy status; Z99.2 Dependence on renal dialysis
CPT/HCPCS: 70140; 70450; 83735; 84100; 87040; 87081; 87340; 90935; 93005; 99291; G0378; J0885; J1200; J3370; J3490; J7030; J7050; J7060

== ENCOUNTER → 2018-01-12 | Outpatient (CLI) | payer MEDICARE, OTHER ==
[~2018-01-12] MED LIST changes: +ACET-2902 PO; +DIPH25 PO; +LOPE2 PO; +OXYC-43 PO; +PERCT10 PO; +PREG25 PO; -ZIPR20CA2 PO; +[UNRECOGNIZED DRUG - CODE] IV
== END | disposition home or self-care (01) ==
LOC: RADMN 09:46
PROVIDERS: ATTEND Internal Medicine
DX: S02.19XA Other fracture of base of skull, initial encounter for closed fracture (principal); N18.6 End stage renal disease; J32.9 Chronic sinusitis, unspecified; X58.XXXA Exposure to other specified factors, initial encounter; Y93.89 Activity, other specified; Y92.89 Other specified places as the place of occurrence of the external cause; Y99.8 Other external cause status
CPT/HCPCS: 70486

== ENCOUNTER 2018-03-06 09:46 | Emergency (ER) | payer MEDICARE, OTHER ==
[~2018-03-06] VITALS: Ht 121.9 cm; Wt 68.2 kg
[~2018-03-06 09:46] MED LIST changes: +AMIN30LI28 PO; -AUD NEB; +BISA10S PR; +BUDE10.22 IH; +LEVO250 PO; +MAGN800O PO; +NICO-704 TD; +NYST30CR9 TP; +ZIPR80CA2 PO; -[UNRECOGNIZED DRUG - CODE] IV
[2018-03-06 10:28] LABS: GLUCOSE,POINT OF CARE 80 MG/DL (70-110)
[2018-03-06] MEDS ORDERED: PREG50 PO (12:22)
[2018-03-06] MEDS ORDERED: IBUPROFEN 800 MG TABLET PO ONE (12:30)
[2018-03-06 12:38] LABS: GLUCOSE,POINT OF CARE 75 MG/DL (70-110)
[2018-03-06 15:05] VITALS: BP 123/89
== END 2018-03-06 14:34 | disposition home or self-care (01) ==
LOC: EMS 09:47
DX: Z59.4 Lack of adequate food (principal); Z74.8 Other problems related to care provider dependency; I11.0 Hypertensive heart disease with heart failure; I50.9 Heart failure, unspecified; E11.9 Type 2 diabetes mellitus without complications; J44.9 Chronic obstructive pulmonary disease, unspecified; F17.210 Nicotine dependence, cigarettes, uncomplicated; Z99.2 Dependence on renal dialysis; Z86.19 Personal history of other infectious and parasitic diseases; Z88.6 Allergy status to analgesic agent; Z91.012 Allergy to eggs; Z89.612 Acquired absence of left leg above knee; Z89.611 Acquired absence of right leg above knee; Z91.018 Allergy to other foods; Z79.899 Other long term (current) drug therapy

== ENCOUNTER 2018-03-11 16:08 | Inpatient (IN) | payer MEDICARE, OTHER ==
[~2018-03-11] VITALS: Ht 152.4 cm; Wt 62.7 kg
[~2018-03-11 16:08] MED LIST changes: -LEVO250 PO; -OXYC-43 PO; -PREG25 PO; +PREG50 PO; -SYMB8060 IH
[2018-03-11 17:04] LABS: BASOPHILS % (AUTO) 0.6 % (0.0-2.0); EOSINOPHILS % (AUTO) 1.7 % (1.0-6.0); HEMATOCRIT 30.2 % (41-53); HEMOGLOBIN 10.1 g/dL (13.5-17.5); LYMPHOCYTES # (AUTO) 0.7 K/uL (1.0-4.8); LYMPHOCYTES % (AUTO) 14.9 % (22.0-44.0); MEAN CORPUSCULAR HEMOGLOBIN 30.2 pg (26.0-34.0); MEAN CORPUSCULAR HGB CONC 33.3 G/dL (31.0-37.0); MEAN CORPUSCULAR VOLUME 91 fL (80-100); MONOCYTES # (AUTO) 0.3 K/uL (0.1-1.0); MONOCYTES % (AUTO) 5.8 % (2.0-9.0); NEUTROPHILS # (AUTO) 3.9 K/uL (1.8-7.7); PLATELET COUNT (AUTO) 110 K/uL (150-450); RED BLOOD CELL COUNT(AUTO) 3.33 MIL/uL (4.50-5.90); RED CELL DISTRIBUTION WIDTH 18.2 % (11.5-14.5)
[2018-03-11 17:26] LABS: CALCIUM, TOTAL 9.5 mg/dL (8.8-10.5); CREATININE 4.48 mg/dL (0.60-1.30); POTASSIUM 3.5 mmol/L (3.5-5.1)
[2018-03-11 17:31] LABS: ALBUMIN 2.4 g/dL (3.4-5.0); BILIRUBIN,TOTAL 0.5 mg/dL (0.1-1.0); TOTAL PROTEIN, SERUM 7.5 g/dL (6.4-8.2)
[2018-03-11 17:51] LABS: TROPONIN I 0.12 ng/mL (0.00-0.05)
[2018-03-11] MEDS ORDERED: BISACODYL 10 MG RECTAL RECTAL SUPPOSITORY PR PRN ×2 (19:15→19:30)
[2018-03-11] MEDS ORDERED: NYSTATIN 30 GM CREAM TP PRN (19:15)
[2018-03-11] MEDS ORDERED: LOPERAMIDE HCL 2 MG CAPSULE PO PRN (19:15)
[2018-03-11] MEDS ORDERED: ACETAMINOPHEN 325 MG TABLET PO PRN (19:15)
[2018-03-11] MEDS ORDERED: TraZODone HCL 50 MG TABLET PO PRN (19:15)
[2018-03-11] MEDS ORDERED: IPRATROPIUM BROMIDE 0.5 MG/2.5 ML NEB SOLUTION NEB PRN (19:30)
[2018-03-11] MEDS ORDERED: MAGNESIUM HYDROXIDE SUSPENSION 30 ML UDCUP PO PRN (19:30)
[2018-03-11] MEDS ORDERED: ALBUTEROL SULFATE 2.5 MG/0.5 ML NEB SOLUTION NEB PRN (19:30)
[2018-03-11] MEDS ORDERED: ONDANSETRON HCL 4 MG/2 ML VIAL IVP PRN (19:30)
[2018-03-11] MEDS ORDERED: NITROGLYCERIN 2% (1 GM=INCH) PACKET TP ONE (19:45)
[2018-03-11] MEDS ORDERED: ASPIRIN 325 MG TABLET PO ONE (19:45)
[2018-03-11] MEDS: HEPARIN SODIUM,PORCINE 5,000 UNITS/ML VIAL SQ SCH ×2 (21:00→21:43)
[2018-03-11 21:27] VITALS: BP 155/89
[2018-03-11] MEDS: CARVEDILOL 12.5 MG TABLET PO SCH (21:42)
[2018-03-11] MEDS: DOCUSATE SODIUM 250 MG CAPSULE PO SCH (21:42)
[2018-03-11] MEDS: OMEPRAZOLE 20 MG CAPSULE PO SCH (21:42)
[2018-03-11] MEDS: PREGABALIN 50 MG CAPSULE PO SCH (21:43)
[2018-03-11] MEDS: BUDESONIDE/FORMOTEROL FUMARATE 80-4.5 MCG/PUFF 6.9 GM INHALER IH SCH (21:43)
[2018-03-11] MEDS: OxyCODONE HCL/ACETAMINOPHEN 10-325 MG TABLET PO PRN (21:44)
[2018-03-11 23:43] VITALS: BP 151/86
[2018-03-12] MEDS: OxyCODONE HCL/ACETAMINOPHEN 10-325 MG TABLET PO PRN ×3 (03:31→18:22)
[2018-03-12 04:38] VITALS: BP 147/89
[2018-03-12 07:02] LABS: BASOPHILS % (AUTO) 0.5 % (0.0-2.0); EOSINOPHILS % (AUTO) 3.5 % (1.0-6.0); HEMOGLOBIN 8.2 g/dL (13.5-17.5); LYMPHOCYTES # (AUTO) 0.9 K/uL (1.0-4.8); LYMPHOCYTES % (AUTO) 22.1 % (22.0-44.0); MEAN CORPUSCULAR HEMOGLOBIN 30.9 pg (26.0-34.0); MEAN CORPUSCULAR HGB CONC 34.3 G/dL (31.0-37.0); MEAN CORPUSCULAR VOLUME 90 fL (80-100); MONOCYTES # (AUTO) 0.3 K/uL (0.1-1.0); MONOCYTES % (AUTO) 7.6 % (2.0-9.0); NEUTROPHILS # (AUTO) 2.6 K/uL (1.8-7.7); NEUTROPHILS % (AUTO) 66.3 % (40.0-70.0); PLATELET COUNT (AUTO) 100 K/uL (150-450); RED BLOOD CELL COUNT(AUTO) 2.66 MIL/uL (4.50-5.90); RED CELL DISTRIBUTION WIDTH 18.9 % (11.5-14.5)
[2018-03-12 07:29] LABS: CALCIUM, TOTAL 8.9 mg/dL (8.8-10.5); CHOL/HDL RATIO 4.3 (4.2-7.3); CREATININE 5.16 mg/dL (0.60-1.30); MAGNESIUM 1.9 mg/dL (1.80-2.40); POTASSIUM 3.6 mmol/L (3.5-5.1); URIC ACID 4.2 mg/dL (2.6-7.2)
[2018-03-12 07:47] VITALS: BP 138/76
[2018-03-12 07:55] LABS: THYROID STIMULATING HORMONE 1.01 uIU/mL (0.36-3.74)
[2018-03-12] MEDS: AMINO ACIDS/PROTEIN HYDROLYS 30 ML TUBE PO SCH ×3 (08:00→17:56)
[2018-03-12] MEDS ORDERED: ZIPRASIDONE HCL 80 MG CAPSULE PO SCH (08:00)
[2018-03-12] MEDS: DOCUSATE SODIUM 250 MG CAPSULE PO SCH ×2 (08:33→20:19)
[2018-03-12] MEDS: PREGABALIN 50 MG CAPSULE PO SCH (08:33)
[2018-03-12] MEDS: HEPARIN SODIUM,PORCINE 5,000 UNITS/ML VIAL SQ SCH ×2 (08:34→20:20)
[2018-03-12] MEDS: BUDESONIDE/FORMOTEROL FUMARATE 80-4.5 MCG/PUFF 6.9 GM INHALER IH SCH ×2 (08:52→20:19)
[2018-03-12] MEDS: TIOTROPIUM BROMIDE 18 MCG/INH HANDIHALER [5] IH SCH (08:52)
[2018-03-12] MEDS: CARVEDILOL 12.5 MG TABLET PO SCH ×2 (08:52→20:19)
[2018-03-12] MEDS: VITAMIN B COMP/VIT C/FOLIC ACID CAPSULE PO SCH (08:52)
[2018-03-12] MEDS: NICOTINE 21 MG/24 HOUR PATCH TD SCH (08:53)
[2018-03-12] MEDS: OMEPRAZOLE 20 MG CAPSULE PO SCH ×2 (08:53→20:19)
[2018-03-12] MEDS: CALCITRIOL 0.25 MCG CAPSULE PO SCH (08:53)
[2018-03-12 10:16] LABS: HEMOGLOBIN A1C 4.6 % (4.5-6.2)
[2018-03-12] MEDS: AmLODIPine BESYLATE 5 MG TABLET PO SCH (11:26)
[2018-03-12 11:51] VITALS: BP 144/95
[2018-03-12] MEDS: ALPRAZolam 0.25 MG TABLET PO PRN ×2 (11:56→23:30)
[2018-03-12] MEDS ORDERED: SODIUM CHLORIDE 0.9% 2,000 ML IV ONE ×2 (14:27→14:33)
[2018-03-12 16:11] VITALS: BP 148/103
[2018-03-12] MEDS ORDERED: TIOTROPIUM BROMIDE 18 MCG/INH HANDIHALER [5] IH SCH (19:30)
[2018-03-12 20:38] VITALS: BP 155/85
[2018-03-12] MEDS: BUDESONIDE 0.5 MG/2 ML NEB SOLUTION NEB SCH (22:11)
[2018-03-12] MEDS ORDERED: LORazepam 0.5 MG TABLET PO PRN (22:15)
[2018-03-12] MEDS: DiphenhydrAMINE HCL 25 MG CAPSULE PO PRN (23:30)
[2018-03-12 23:57] VITALS: BP 156/93
[2018-03-13] MEDS: OxyCODONE HCL/ACETAMINOPHEN 10-325 MG TABLET PO PRN ×4 (02:54→23:05)
[2018-03-13 04:10] VITALS: BP 138/84
[2018-03-13 08:15] VITALS: BP 138/80
[2018-03-13 08:18] LABS: BASOPHILS % (AUTO) 0.5 % (0.0-2.0); HEMATOCRIT 24.2 % (41-53); HEMOGLOBIN 8.1 g/dL (13.5-17.5); LYMPHOCYTES # (AUTO) 0.8 K/uL (1.0-4.8); LYMPHOCYTES % (AUTO) 23.1 % (22.0-44.0); MEAN CORPUSCULAR HEMOGLOBIN 30.7 pg (26.0-34.0); MEAN CORPUSCULAR HGB CONC 33.4 G/dL (31.0-37.0); MEAN CORPUSCULAR VOLUME 92 fL (80-100); MONOCYTES # (AUTO) 0.3 K/uL (0.1-1.0); MONOCYTES % (AUTO) 7.6 % (2.0-9.0); NEUTROPHILS # (AUTO) 2.2 K/uL (1.8-7.7); NEUTROPHILS % (AUTO) 65.8 % (40.0-70.0); PLATELET COUNT (AUTO) 89 K/uL (150-450); RED BLOOD CELL COUNT(AUTO) 2.63 MIL/uL (4.50-5.90); RED CELL DISTRIBUTION WIDTH 19.3 % (11.5-14.5)
[2018-03-13] MEDS: OMEPRAZOLE 20 MG CAPSULE PO SCH ×2 (08:28→21:09)
[2018-03-13] MEDS: CALCITRIOL 0.25 MCG CAPSULE PO SCH (08:28)
[2018-03-13] MEDS: TIOTROPIUM BROMIDE 18 MCG/INH HANDIHALER [5] IH SCH (08:28)
[2018-03-13] MEDS: BUDESONIDE/FORMOTEROL FUMARATE 80-4.5 MCG/PUFF 6.9 GM INHALER IH SCH ×2 (08:28→21:09)
[2018-03-13] MEDS: FLUoxetine HCL 10 MG CAPSULE PO SCH (08:28)
[2018-03-13] MEDS: AmLODIPine BESYLATE 5 MG TABLET PO SCH (08:29)
[2018-03-13] MEDS: VITAMIN B COMP/VIT C/FOLIC ACID CAPSULE PO SCH (08:29)
[2018-03-13] MEDS: NICOTINE 21 MG/24 HOUR PATCH TD SCH (08:29)
[2018-03-13] MEDS: DOCUSATE SODIUM 250 MG CAPSULE PO SCH ×2 (08:29→21:09)
[2018-03-13] MEDS: HEPARIN SODIUM,PORCINE 5,000 UNITS/ML VIAL SQ SCH ×2 (08:30→21:08)
[2018-03-13 08:32] LABS: CALCIUM, TOTAL 8.4 mg/dL (8.8-10.5); CREATININE 3.95 mg/dL (0.60-1.30); POTASSIUM 3.7 mmol/L (3.5-5.1)
[2018-03-13] MEDS: CARVEDILOL 12.5 MG TABLET PO SCH ×2 (08:42→21:09)
[2018-03-13] MEDS: AMINO ACIDS/PROTEIN HYDROLYS 30 ML TUBE PO SCH ×3 (08:57→18:00)
[2018-03-13] MEDS: BUDESONIDE 0.5 MG/2 ML NEB SOLUTION NEB SCH ×2 (10:20→20:23)
[2018-03-13 11:51] VITALS: BP 147/79
[2018-03-13] MEDS: ALPRAZolam 0.25 MG TABLET PO PRN ×2 (12:05→18:31)
[2018-03-13] MEDS: DiphenhydrAMINE HCL 25 MG CAPSULE PO PRN (12:05)
[2018-03-13 16:16] VITALS: BP 151/88
[2018-03-13] MEDS ORDERED: LIDOCAINE/PF 1% 2 ML VIAL IM ONE (18:17)
[2018-03-13] MEDS ORDERED: DiphenhydrAMINE HCL 50 MG/ML VIAL IM ONE (18:17)
[2018-03-13 19:10] VITALS: BP 152/79
[2018-03-13] MEDS: RisperiDONE 0.5 MG TABLET PO SCH (21:09)
[2018-03-14 00:02] VITALS: BP 162/87
[2018-03-14] MEDS: OxyCODONE HCL/ACETAMINOPHEN 10-325 MG TABLET PO PRN ×3 (03:48→19:57)
[2018-03-14] MEDS: ALPRAZolam 0.25 MG TABLET PO PRN (06:43)
[2018-03-14 07:09] LABS: BASOPHILS % (AUTO) 0.7 % (0.0-2.0); EOSINOPHILS % (AUTO) 2.9 % (1.0-6.0); HEMATOCRIT 24.1 % (41-53); HEMOGLOBIN 7.8 g/dL (13.5-17.5); LYMPHOCYTES # (AUTO) 0.8 K/uL (1.0-4.8); LYMPHOCYTES % (AUTO) 22.8 % (22.0-44.0); MEAN CORPUSCULAR HEMOGLOBIN 30.1 pg (26.0-34.0); MEAN CORPUSCULAR HGB CONC 32.4 G/dL (31.0-37.0); MEAN CORPUSCULAR VOLUME 93 fL (80-100); MONOCYTES # (AUTO) 0.3 K/uL (0.1-1.0); MONOCYTES % (AUTO) 8.1 % (2.0-9.0); NEUTROPHILS # (AUTO) 2.2 K/uL (1.8-7.7); NEUTROPHILS % (AUTO) 65.5 % (40.0-70.0); PLATELET COUNT (AUTO) 85 K/uL (150-450); RED CELL DISTRIBUTION WIDTH 18.9 % (11.5-14.5)
[2018-03-14 07:20] LABS: CALCIUM, TOTAL 8.8 mg/dL (8.8-10.5); CREATININE 5.09 mg/dL (0.60-1.30); POTASSIUM 4.1 mmol/L (3.5-5.1)
[2018-03-14 07:29] VITALS: BP 141/78
[2018-03-14] MEDS: AMINO ACIDS/PROTEIN HYDROLYS 30 ML TUBE PO SCH ×3 (08:00→17:11)
[2018-03-14] MEDS: TIOTROPIUM BROMIDE 18 MCG/INH HANDIHALER [5] IH SCH (08:32)
[2018-03-14] MEDS: BUDESONIDE/FORMOTEROL FUMARATE 80-4.5 MCG/PUFF 6.9 GM INHALER IH SCH ×2 (08:33→21:02)
[2018-03-14] MEDS: DOCUSATE SODIUM 250 MG CAPSULE PO SCH ×2 (08:33→21:01)
[2018-03-14] MEDS: OMEPRAZOLE 20 MG CAPSULE PO SCH ×2 (08:34→21:01)
[2018-03-14] MEDS: FLUoxetine HCL 10 MG CAPSULE PO SCH (08:34)
[2018-03-14] MEDS: CALCITRIOL 0.25 MCG CAPSULE PO SCH (08:34)
[2018-03-14] MEDS: VITAMIN B COMP/VIT C/FOLIC ACID CAPSULE PO SCH (08:34)
[2018-03-14] MEDS: HEPARIN SODIUM,PORCINE 5,000 UNITS/ML VIAL SQ SCH ×2 (08:35→21:02)
[2018-03-14] MEDS: NICOTINE 21 MG/24 HOUR PATCH TD SCH (08:36)
[2018-03-14] MEDS: BUDESONIDE 0.5 MG/2 ML NEB SOLUTION NEB SCH ×2 (09:49→20:18)
[2018-03-14] MEDS: CARVEDILOL 12.5 MG TABLET PO SCH ×2 (11:44→21:01)
[2018-03-14] MEDS: AmLODIPine BESYLATE 5 MG TABLET PO SCH (11:44)
[2018-03-14 12:00] VITALS: BP 150/78
[2018-03-14 17:19] VITALS: BP 160/85
[2018-03-14 19:48] VITALS: BP 158/84
[2018-03-14] MEDS: RisperiDONE 0.5 MG TABLET PO SCH (21:01)
[2018-03-14] MEDS ORDERED: SODIUM CHLORIDE 0.9% 2,000 ML IV ONE (22:59)
[2018-03-15] VITALS (7 sets, daily range): BP systolic 137–155; BP diastolic 75–86
[2018-03-15] MEDS: OxyCODONE HCL/ACETAMINOPHEN 10-325 MG TABLET PO PRN ×4 (05:44→21:13)
[2018-03-15] MEDS: AMINO ACIDS/PROTEIN HYDROLYS 30 ML TUBE PO SCH ×2 (08:00→11:22)
[2018-03-15] MEDS: TIOTROPIUM BROMIDE 18 MCG/INH HANDIHALER [5] IH SCH (08:21)
[2018-03-15] MEDS: BUDESONIDE/FORMOTEROL FUMARATE 80-4.5 MCG/PUFF 6.9 GM INHALER IH SCH ×2 (08:21→21:14)
[2018-03-15] MEDS: OMEPRAZOLE 20 MG CAPSULE PO SCH ×2 (08:22→21:14)
[2018-03-15] MEDS: DOCUSATE SODIUM 250 MG CAPSULE PO SCH ×2 (08:22→21:14)
[2018-03-15] MEDS: AmLODIPine BESYLATE 5 MG TABLET PO SCH (08:22)
[2018-03-15] MEDS: CARVEDILOL 12.5 MG TABLET PO SCH ×2 (08:22→21:14)
[2018-03-15] MEDS: VITAMIN B COMP/VIT C/FOLIC ACID CAPSULE PO SCH (08:22)
[2018-03-15] MEDS: CALCITRIOL 0.25 MCG CAPSULE PO SCH (08:23)
[2018-03-15] MEDS: FLUoxetine HCL 20 MG CAPSULE PO SCH (08:23)
[2018-03-15] MEDS: NICOTINE 21 MG/24 HOUR PATCH TD SCH (08:24)
[2018-03-15] MEDS: HEPARIN SODIUM,PORCINE 5,000 UNITS/ML VIAL SQ SCH ×2 (08:24→21:00)
[2018-03-15] MEDS: BUDESONIDE 0.5 MG/2 ML NEB SOLUTION NEB SCH ×2 (08:28→20:11)
[2018-03-15] MEDS ORDERED: EPOETIN ALFA 10,000 UNITS/ML VIAL SQ SCH (09:00)
[2018-03-15] MEDS: ALPRAZolam 0.25 MG TABLET PO PRN (16:32)
[2018-03-15] MEDS ORDERED: LIDOCAINE/PF 1% 2 ML VIAL IM ONE (16:41)
[2018-03-15] MEDS ORDERED: DiphenhydrAMINE HCL 50 MG/ML VIAL IM ONE (16:41)
[2018-03-15] MEDS: RisperiDONE 0.5 MG TABLET PO SCH (21:13)
[2018-03-15] MEDS: GABAPENTIN 300 MG CAPSULE PO SCH (21:13)
[2018-03-16] MEDS: OxyCODONE HCL/ACETAMINOPHEN 10-325 MG TABLET PO PRN ×2 (03:29→15:13)
[2018-03-16 04:48] VITALS: BP 147/92
[2018-03-16] MEDS ORDERED: DiphenhydrAMINE HCL 50 MG/ML VIAL IVP PRN (07:45)
[2018-03-16] MEDS ORDERED: MANNITOL 25%-12.5 GM/50 ML VIAL IVP PRN (07:45)
[2018-03-16] MEDS ORDERED: LIDOCAINE/PF 1% 2 ML VIAL ID PRN (07:45)
[2018-03-16] MEDS: AmLODIPine BESYLATE 5 MG TABLET PO SCH (08:11)
[2018-03-16] MEDS: CARVEDILOL 12.5 MG TABLET PO SCH (08:11)
[2018-03-16 08:14] VITALS: BP 148/81
[2018-03-16] MEDS: TIOTROPIUM BROMIDE 18 MCG/INH HANDIHALER [5] IH SCH (08:30)
[2018-03-16] MEDS: FLUoxetine HCL 20 MG CAPSULE PO SCH (08:31)
[2018-03-16] MEDS: BUDESONIDE/FORMOTEROL FUMARATE 80-4.5 MCG/PUFF 6.9 GM INHALER IH SCH (08:31)
[2018-03-16] MEDS: CALCITRIOL 0.25 MCG CAPSULE PO SCH (08:31)
[2018-03-16] MEDS: DOCUSATE SODIUM 250 MG CAPSULE PO SCH (08:32)
[2018-03-16] MEDS: VITAMIN B COMP/VIT C/FOLIC ACID CAPSULE PO SCH (08:32)
[2018-03-16] MEDS: GABAPENTIN 300 MG CAPSULE PO SCH ×3 (08:32→15:13)
[2018-03-16] MEDS: OMEPRAZOLE 20 MG CAPSULE PO SCH (08:33)
[2018-03-16] MEDS: NICOTINE 21 MG/24 HOUR PATCH TD SCH (08:34)
[2018-03-16] MEDS: HEPARIN SODIUM,PORCINE 5,000 UNITS/ML VIAL SQ SCH (08:47)
[2018-03-16 12:16] VITALS: BP 161/87
[2018-03-16] MEDS: ALPRAZolam 0.25 MG TABLET PO PRN (12:37)
[2018-03-16] MEDS: BUDESONIDE 0.5 MG/2 ML NEB SOLUTION NEB SCH (14:32)
[2018-03-16 15:08] VITALS: BP 131/73
== END 2018-03-16 16:05 | DRG 291 ==
LOC: EMS 16:10 → 5S 20:31
PROVIDERS: ADMIT Internal Medicine Geriatric Medicine; ATTEND Internal Medicine Geriatric Medicine
PROC: 5A1D70Z Performance of Urinary Filtration, Intermittent, Less than 6 Hours Per Day (ICD-10-PCS; principal; 2018-03-12)
PROC: 5A1D70Z Performance of Urinary Filtration, Intermittent, Less than 6 Hours Per Day (ICD-10-PCS; 2018-03-15)
PROC: 5A1D70Z Performance of Urinary Filtration, Intermittent, Less than 6 Hours Per Day (ICD-10-PCS; 2018-03-16)
DX: I13.2 Hypertensive heart and chronic kidney disease with heart failure and with stage 5 chronic kidney disease, or end stage renal disease (principal); N18.6 End stage renal disease; I50.31 Acute diastolic (congestive) heart failure; F11.20 Opioid dependence, uncomplicated; D61.818 Other pancytopenia; F33.3 Major depressive disorder, recurrent, severe with psychotic symptoms; J44.1 Chronic obstructive pulmonary disease with (acute) exacerbation; N25.81 Secondary hyperparathyroidism of renal origin; I20.9 Angina pectoris, unspecified; G89.4 Chronic pain syndrome; D64.9 Anemia, unspecified; D69.6 Thrombocytopenia, unspecified; B19.20 Unspecified viral hepatitis C without hepatic coma; D63.1 Anemia in chronic kidney disease; E11.21 Type 2 diabetes mellitus with diabetic nephropathy; E11.22 Type 2 diabetes mellitus with diabetic chronic kidney disease; E11.51 Type 2 diabetes mellitus with diabetic peripheral angiopathy without gangrene; F17.200 Nicotine dependence, unspecified, uncomplicated; R26.9 Unspecified abnormalities of gait and mobility; K74.60 Unspecified cirrhosis of liver; Z83.3 Family history of diabetes mellitus; Z89.511 Acquired absence of right leg below knee; Z89.512 Acquired absence of left leg below knee; Z89.611 Acquired absence of right leg above knee; Z89.612 Acquired absence of left leg above knee; Z91.19 Patient's noncompliance with other medical treatment and regimen; Z99.2 Dependence on renal dialysis; Z88.8 Allergy status to other drugs, medicaments and biological substances; Z91.012 Allergy to eggs
CPT/HCPCS: 82105; 83036; 83735; 84100; 84439; 84443; 84550; 87081; 93005; 94640; G0378; J0885; J1200; J1644; J3490; J7030